=== PATIENT | male | born 1955 | race Caucasian/White ===

== ENCOUNTER 2017-03-14 19:11 | Inpatient (IN) | payer OTHER ==
[2017-03-14 20:23] LABS: BILIRUBIN,URINE SMALL (NEG); CLARITY,URINE CLEAR; COLOR,URINE AMBER; GLUCOSE,URINE NEGATIVE (NEG); NITRITE,URINE NEGATIVE (NEG); PROTEIN,URINE NEGATIVE (NEG-TRACE)
[2017-03-14 20:31] LABS: ADD MAN DIFF? NO
[2017-03-14 20:34] LABS: BASO % 1 % (0-3); EOS # 0.1 x10^3/uL (0.0-0.7); EOS % 1 % (0-3); HEMATOCRIT 38.3 % (39.0-53.0); HEMOGLOBIN 12.5 g/dL (13.0-17.5); LYMPH # 1.5 x10^3/uL (1.0-4.8); LYMPH % 24 % (24-48); MEAN CORPUSCULAR HEMOGLOBIN 29 pg (25-35); MEAN CORPUSCULAR HGB CONC 33 g/dL (31-37); MEAN CORPUSCULAR VOLUME 90 fL (79-100); MONO # 0.4 x10^3/uL (0.0-1.1); MONO % 6 % (0-9); NEUT # 4.2 x10^3uL (1.8-7.7); NEUT % 68 % (31-73); PLATELET COUNT 228 x10^3/uL (140-400); RED BLOOD COUNT 4.26 x10^6/uL (4.30-5.70); RED CELL DISTRIBUTION WIDTH 13.9 % (11.5-14.5); WHITE BLOOD COUNT 6.2 x10^3/uL (4.0-11.0)
[2017-03-14 20:41] LABS: ANION GAP 11 (6-14); BLOOD UREA NITROGEN 23 mg/dL (8-26); BUN/CREATININE RATIO 33 (6-20); CARBON DIOXIDE 28 mmol/L (21-32); CHLORIDE 105 mmol/L (98-107); CREATININE 0.7 mg/dL (0.7-1.3); GLUCOSE 94 mg/dL (70-99); POTASSIUM 3.9 mmol/L (3.5-5.1); SODIUM 144 mmol/L (136-145)
[2017-03-14 20:45] LABS: BACTERIA,URINE FEW /HPF (0-FEW); RBC,URINE 0 /HPF (0-2); WBC,URINE OCC /HPF (0-4)
[2017-03-14 20:48] LABS: ALBUMIN 3.4 g/dL (3.4-5.0); ALBUMIN/GLOBULIN RATIO 0.9 (1.0-1.7); ALK PHOS 86 U/L (46-116); AST (SGOT) 14 U/L (15-37); TOTAL BILIRUBIN 0.4 mg/dL (0.2-1.0); TOTAL PROTEIN 7.2 g/dL (6.4-8.2)
[2017-03-14 20:57] LABS: ALT (SGPT) 6 U/L (16-63)
[2017-03-14] MEDS: IV NORMAL SALINE 1000ML BAG 1,000 ML IV ×2 (21:40)
[2017-03-14] MEDS ORDERED: ONDANSETRON PF 4 MG/2 ML VIAL. IV ×2 (21:45)
[2017-03-15 05:39] LABS: ADD MAN DIFF? NO
[2017-03-15 06:11] LABS: BASO % 1 % (0-3); EOS # 0.1 x10^3/uL (0.0-0.7); EOS % 1 % (0-3); HEMATOCRIT 33.9 % (39.0-53.0); HEMOGLOBIN 11.2 g/dL (13.0-17.5); LYMPH # 1.8 x10^3/uL (1.0-4.8); LYMPH % 37 % (24-48); MEAN CORPUSCULAR HEMOGLOBIN 30 pg (25-35); MEAN CORPUSCULAR HGB CONC 33 g/dL (31-37); MEAN CORPUSCULAR VOLUME 90 fL (79-100); MONO # 0.3 x10^3/uL (0.0-1.1); MONO % 7 % (0-9); NEUT # 2.6 x10^3uL (1.8-7.7); NEUT % 55 % (31-73); PLATELET COUNT 202 x10^3/uL (140-400); RED BLOOD COUNT 3.77 x10^6/uL (4.30-5.70); RED CELL DISTRIBUTION WIDTH 13.9 % (11.5-14.5); WHITE BLOOD COUNT 4.8 x10^3/uL (4.0-11.0)
[2017-03-15 06:19] LABS: ANION GAP 11 (6-14); BLOOD UREA NITROGEN 22 mg/dL (8-26); CALCIUM 8.6 mg/dL (8.5-10.1); CARBON DIOXIDE 26 mmol/L (21-32); CHLORIDE 108 mmol/L (98-107); CREATININE 0.8 mg/dL (0.7-1.3); GFR 98.6; GLUCOSE 80 mg/dL (70-99); POTASSIUM 3.4 mmol/L (3.5-5.1); SODIUM 145 mmol/L (136-145)
[2017-03-15] MEDS: IV NORMAL SALINE 1000ML BAG 1,000 ML IV ×4 (10:13→16:45)
[2017-03-15] MEDS: MORPHINE SULFATE 4 MG/ML DISP.SYRIN. IV ×4 (10:14→15:25)
[2017-03-15] MEDS ORDERED: LIDOCAINE 2% PF Vial for OR 5 ML VIAL. ×2 (11:55)
[2017-03-15] MEDS ORDERED: PROPOFOL 20 ML IV ×2 (11:55)
[2017-03-15 13:48] LABS: INR 1.2 (0.8-1.1); PROTHROMBIN TIME PATIENT 14.3 SEC (11.7-14.0)
[2017-03-15] MEDS: FAMOTIDINE 20 MG/2 ML VIAL IVP ×2 (20:57)
[2017-03-15 22:10] LABS: MRSA BY PCR Negative (Negative)
[2017-03-16] MEDS: IV NORMAL SALINE 1000ML BAG 1,000 ML IV ×2 (04:27)
[2017-03-16] MEDS ORDERED: POTASSIUM CL 20MEQ D5-0.45NACL 1,000 ML IV ×2 (11:30)
[2017-03-16] MEDS: AMINO AC 3%/ELECTROLYTE/GLYCER 1,000 ML IV ×2 (12:26)
[2017-03-16] MEDS: MORPHINE SULFATE 4 MG/ML DISP.SYRIN. IV ×2 (17:49)
[2017-03-16] MEDS: FAMOTIDINE 20 MG/2 ML VIAL IVP ×2 (20:34)
[2017-03-17] MEDS: AMINO AC 3%/ELECTROLYTE/GLYCER 1,000 ML IV ×4 (00:21→13:26)
[2017-03-17 05:03] LABS: ALBUMIN 2.7 g/dL (3.4-5.0); ALBUMIN/GLOBULIN RATIO 0.7 (1.0-1.7); ALK PHOS 74 U/L (46-116); ALT (SGPT) 10 U/L (16-63); ANION GAP 12 (6-14); AST (SGOT) 16 U/L (15-37); BLOOD UREA NITROGEN 16 mg/dL (8-26); BUN/CREATININE RATIO 20 (6-20); CALCIUM 8.5 mg/dL (8.5-10.1); CARBON DIOXIDE 25 mmol/L (21-32); CHLORIDE 103 mmol/L (98-107); CREATININE 0.8 mg/dL (0.7-1.3); GFR 98.6; GLUCOSE 85 mg/dL (70-99); MAGNESIUM 1.7 mg/dL (1.8-2.4); POTASSIUM 3.8 mmol/L (3.5-5.1); SODIUM 140 mmol/L (136-145); TOTAL BILIRUBIN 0.5 mg/dL (0.2-1.0); TOTAL PROTEIN 6.8 g/dL (6.4-8.2)
[2017-03-17] MEDS: MORPHINE SULFATE 4 MG/ML DISP.SYRIN. IV ×2 (08:35)
[2017-03-17] MEDS: MAGNESIUM SULFATE 1GM 100 ML IV ×2 (17:32)
[2017-03-17] MEDS: FAMOTIDINE 20 MG/2 ML VIAL IVP ×2 (21:04)
[2017-03-18] MEDS: AMINO AC 3%/ELECTROLYTE/GLYCER 1,000 ML IV ×6 (00:35→23:57)
[2017-03-18 06:11] LABS: ANION GAP 12 (6-14); BLOOD UREA NITROGEN 15 mg/dL (8-26); CALCIUM 8.8 mg/dL (8.5-10.1); CARBON DIOXIDE 26 mmol/L (21-32); CHLORIDE 99 mmol/L (98-107); CREATININE 0.7 mg/dL (0.7-1.3); GLUCOSE 98 mg/dL (70-99); MAGNESIUM 1.9 mg/dL (1.8-2.4); POTASSIUM 3.9 mmol/L (3.5-5.1); SODIUM 137 mmol/L (136-145)
[2017-03-18] MEDS: MORPHINE SULFATE 4 MG/ML DISP.SYRIN. IV ×4 (09:28→17:35)
[2017-03-18] MEDS: FAMOTIDINE 20 MG/2 ML VIAL IVP ×2 (20:38)
[2017-03-19] MEDS: MORPHINE SULFATE 4 MG/ML DISP.SYRIN. IV ×10 (05:48→23:56)
[2017-03-19] MEDS: IV RINGERS,LACTATED 1000ML 1,000 ML IV ×2 (13:15)
[2017-03-19] MEDS ORDERED: PROPOFOL 20 ML IV ×2 (13:23)
[2017-03-19] MEDS: AMINO AC 3%/ELECTROLYTE/GLYCER 1,000 ML IV ×2 (15:00)
[2017-03-19] MEDS: FAMOTIDINE 20 MG/2 ML VIAL IVP ×2 (23:59)
[2017-03-20] MEDS: AMINO AC 3%/ELECTROLYTE/GLYCER 1,000 ML IV ×6 (02:22→20:44)
[2017-03-20] MEDS: MORPHINE SULFATE 4 MG/ML DISP.SYRIN. IV ×10 (02:24→16:24)
[2017-03-20] MEDS ORDERED: LIDOCAINE 1% PF 2 ML VIAL. ID ×2 (07:00)
[2017-03-20] MEDS ORDERED: IV RINGERS,LACTATED 1000ML 1,000 ML IV ×2 (07:00)
[2017-03-20] MEDS ORDERED: fentaNYL PF VIAL 100 MCG/2 ML VIAL IV ×2 (07:00)
[2017-03-20] MEDS ORDERED: PROCHLORPERAZINE 10 MG/2 ML VIAL. IV ×2 (07:00)
[2017-03-20] MEDS ORDERED: ONDANSETRON PF 4 MG/2 ML VIAL. IV ×2 (07:00)
[2017-03-20] MEDS ORDERED: HYDROmorphone 2 MG/ML VIAL IV ×2 (07:00)
[2017-03-20] MEDS ORDERED: MORPHINE SULFATE 2 MG/ML DISP.SYRIN. IV ×2 (07:00)
[2017-03-20] MEDS ORDERED: SEVOFLURANE 16 TO 30 MINUTES. IH ×2 (11:45)
[2017-03-20] MEDS ORDERED: PROPOFOL 20 ML IV ×2 (11:45)
[2017-03-20] MEDS ORDERED: LIDOCAINE 2% PF Vial for OR 5 ML VIAL. ×2 (11:45)
[2017-03-20] MEDS ORDERED: BUPIVAC MPF-EPI 0.5%-1:200000 10 ML VIAL. ×2 (12:15)
[2017-03-20] MEDS ORDERED: BUPIVACAINE MPF 0.5% 30 ML VIAL. ×2 (12:16)
[2017-03-20] MEDS ORDERED: PHENYLEPHRINE in 0.9% NACL PF 1 MG/10 ML SYRINGE. IV (12:26)
[2017-03-20] MEDS ORDERED: DEXAMETHASONE SOD PHOS 20 MG/5 ML VIAL. ×2 (12:30)
[2017-03-20] MEDS ORDERED: ONDANSETRON PF 4 MG/2 ML VIAL. ×2 (12:30)
[2017-03-20] MEDS: BUPIVAC MPF-EPI 0.5%-1:200000 30 ML VIAL. INJ ×2 (12:34)
[2017-03-20] MEDS ORDERED: fentaNYL PF VIAL 100 MCG/2 ML VIAL ×2 (12:47)
[2017-03-20] MEDS: fentaNYL PF VIAL 100 MCG/2 ML VIAL IV ×8 (14:09→14:52)
[2017-03-20] MEDS: IV RINGERS,LACTATED 1000ML 1,000 ML IV ×2 (19:15)
[2017-03-20] MEDS: FAMOTIDINE 20 MG/2 ML VIAL IVP ×2 (20:52)
[2017-03-21] MEDS: IV RINGERS,LACTATED 1000ML 1,000 ML IV ×2 (05:15)
[2017-03-21] MEDS: MORPHINE SULFATE 4 MG/ML DISP.SYRIN. IV ×6 (09:09→23:15)
[2017-03-21] MEDS: AMINO AC 3%/ELECTROLYTE/GLYCER 1,000 ML IV ×4 (09:22→20:52)
[2017-03-21] MEDS: FAMOTIDINE 20 MG/2 ML VIAL IVP ×2 (20:44)
[2017-03-21] MEDS: ONDANSETRON PF 4 MG/2 ML VIAL. IV ×2 (20:45)
[2017-03-22] MEDS: MORPHINE SULFATE 4 MG/ML DISP.SYRIN. IV ×6 (03:03→20:46)
[2017-03-22] MEDS: ONDANSETRON PF 4 MG/2 ML VIAL. IV ×6 (06:23→20:46)
[2017-03-22] MEDS ORDERED: traMADol 50 MG TABLET PO ×2 (07:15)
[2017-03-22] MEDS ORDERED: ACETAMINOPHEN 325 MG TABLET. PO ×2 (07:15)
[2017-03-22] MEDS: AMINO AC 3%/ELECTROLYTE/GLYCER 1,000 ML IV ×2 (14:55)
[2017-03-22] MEDS: FAMOTIDINE 20 MG/2 ML VIAL IVP ×2 (20:47)
[2017-03-23] MEDS: MORPHINE SULFATE 4 MG/ML DISP.SYRIN. IV ×6 (05:37→21:31)
[2017-03-23] MEDS: AMINO AC 3%/ELECTROLYTE/GLYCER 1,000 ML IV ×4 (05:37→16:25)
[2017-03-23] MEDS: ONDANSETRON PF 4 MG/2 ML VIAL. IV ×4 (13:40→21:31)
[2017-03-23] MEDS: FAMOTIDINE 20 MG/2 ML VIAL IVP ×2 (21:30)
[2017-03-24] MEDS: MORPHINE SULFATE 4 MG/ML DISP.SYRIN. IV ×8 (00:06→20:11)
[2017-03-24] MEDS: ONDANSETRON PF 4 MG/2 ML VIAL. IV ×4 (06:29→17:44)
[2017-03-24] MEDS: AMINO AC 3%/ELECTROLYTE/GLYCER 1,000 ML IV ×4 (08:34→20:05)
[2017-03-24] MEDS: BISACODYL 10 MG SUPP.RECT. PR ×2 (17:39)
[2017-03-24] MEDS: FAMOTIDINE 20 MG/2 ML VIAL IVP ×2 (20:10)
[2017-03-25] MEDS: MORPHINE SULFATE 4 MG/ML DISP.SYRIN. IV ×8 (04:01→21:56)
[2017-03-25] MEDS: AMINO AC 3%/ELECTROLYTE/GLYCER 1,000 ML IV ×4 (08:50→22:01)
[2017-03-25 11:59] LABS: BASO % 0 % (0-3); EOS % 0 % (0-3); HEMATOCRIT 35.5 % (39.0-53.0); HEMOGLOBIN 11.5 g/dL (13.0-17.5); LYMPH # 0.8 x10^3/uL (1.0-4.8); LYMPH % 9 % (24-48); MEAN CORPUSCULAR HEMOGLOBIN 29 pg (25-35); MEAN CORPUSCULAR HGB CONC 32 g/dL (31-37); MEAN CORPUSCULAR VOLUME 89 fL (79-100); MONO # 0.8 x10^3/uL (0.0-1.1); MONO % 10 % (0-9); NEUT # 6.8 x10^3uL (1.8-7.7); NEUT % 80 % (31-73); PLATELET COUNT 340 x10^3/uL (140-400); RED BLOOD COUNT 3.98 x10^6/uL (4.30-5.70); RED CELL DISTRIBUTION WIDTH 13.9 % (11.5-14.5); WHITE BLOOD COUNT 8.5 x10^3/uL (4.0-11.0)
[2017-03-25 12:00] LABS: ADD MAN DIFF? YES
[2017-03-25 12:21] LABS: % ATYL 1 % (0-0); % EOS 1 % (0-5); % LYMPHS 17 % (24-48); % MONOS 12 % (0-10); % SEGS 69 % (35-66); PLT ESTIMATE ADEQUATE (ADEQUATE)
[2017-03-25 12:30] LABS: ALBUMIN 1.8 g/dL (3.4-5.0); ALBUMIN/GLOBULIN RATIO 0.4 (1.0-1.7); ALK PHOS 118 U/L (46-116); ALT (SGPT) 15 U/L (16-63); ANION GAP 10 (6-14); AST (SGOT) 36 U/L (15-37); BLOOD UREA NITROGEN 34 mg/dL (8-26); BUN/CREATININE RATIO 57 (6-20); CALCIUM 8.6 mg/dL (8.5-10.1); CARBON DIOXIDE 26 mmol/L (21-32); CHLORIDE 97 mmol/L (98-107); CREATININE 0.6 mg/dL (0.7-1.3); GFR 137.4; GLUCOSE 102 mg/dL (70-99); POTASSIUM 4.4 mmol/L (3.5-5.1); SODIUM 133 mmol/L (136-145); TOTAL BILIRUBIN 0.4 mg/dL (0.2-1.0); TOTAL PROTEIN 6.9 g/dL (6.4-8.2)
[2017-03-25] MEDS: PIPERACILLIN/TAZO IV Push 3.375 GM VIAL. IVP ×4 (13:51→18:15)
[2017-03-25] MEDS: ONDANSETRON PF 4 MG/2 ML VIAL. IV ×2 (16:15)
[2017-03-25] MEDS ORDERED: PIPERACILLIN/TAZOBACTAM 3.375 GM in IV DEXTROSE 5% 50 ML IV (18:00)
[2017-03-25] MEDS: FAMOTIDINE 20 MG/2 ML VIAL IVP ×2 (21:55)
[2017-03-26] MEDS: PIPERACILLIN/TAZO IV Push 3.375 GM VIAL. IVP ×8 (00:30→17:54)
[2017-03-26] MEDS: MORPHINE SULFATE 4 MG/ML DISP.SYRIN. IV ×10 (00:31→22:14)
[2017-03-26] MEDS: AMINO AC 3%/ELECTROLYTE/GLYCER 1,000 ML IV ×4 (11:28→22:15)
[2017-03-26] MEDS: BISACODYL 10 MG SUPP.RECT. PR ×2 (12:07)
[2017-03-26] MEDS: ONDANSETRON PF 4 MG/2 ML VIAL. IV ×2 (22:14)
[2017-03-26] MEDS: FAMOTIDINE 20 MG/2 ML VIAL IVP ×2 (22:15)
[2017-03-27] MEDS: PIPERACILLIN/TAZO IV Push 3.375 GM VIAL. IVP ×4 (01:09→06:21)
[2017-03-27] MEDS: MORPHINE SULFATE 4 MG/ML DISP.SYRIN. IV ×8 (03:48→20:28)
[2017-03-27 07:14] LABS: ADD MAN DIFF? NO
[2017-03-27 07:42] LABS: ANION GAP 11 (6-14); BLOOD UREA NITROGEN 29 mg/dL (8-26); CALCIUM 8.1 mg/dL (8.5-10.1); CARBON DIOXIDE 25 mmol/L (21-32); CHLORIDE 97 mmol/L (98-107); CREATININE 0.7 mg/dL (0.7-1.3); GLUCOSE 118 mg/dL (70-99); POTASSIUM 4.2 mmol/L (3.5-5.1); SODIUM 133 mmol/L (136-145)
[2017-03-27 08:36] LABS: BASO % 0 % (0-3); EOS # 0.1 x10^3/uL (0.0-0.7); EOS % 1 % (0-3); HEMATOCRIT 35.8 % (39.0-53.0); HEMOGLOBIN 11.7 g/dL (13.0-17.5); LYMPH # 1.3 x10^3/uL (1.0-4.8); LYMPH % 10 % (24-48); MEAN CORPUSCULAR HEMOGLOBIN 29 pg (25-35); MEAN CORPUSCULAR HGB CONC 33 g/dL (31-37); MEAN CORPUSCULAR VOLUME 88 fL (79-100); MONO # 1.4 x10^3/uL (0.0-1.1); MONO % 11 % (0-9); NEUT # 9.6 x10^3uL (1.8-7.7); NEUT % 77 % (31-73); PLATELET COUNT 415 x10^3/uL (140-400); RED BLOOD COUNT 4.06 x10^6/uL (4.30-5.70); RED CELL DISTRIBUTION WIDTH 14.3 % (11.5-14.5); WHITE BLOOD COUNT 12.3 x10^3/uL (4.0-11.0)
[2017-03-27] MEDS: cefTRIAXone IV Push 1 GM VIAL. IVP ×2 (10:27)
[2017-03-27] MEDS: AMINO AC 3%/ELECTROLYTE/GLYCER 1,000 ML IV ×4 (12:24→20:26)
[2017-03-27] MEDS: FAMOTIDINE 20 MG/2 ML VIAL IVP ×2 (20:27)
[2017-03-28] MEDS: MORPHINE SULFATE 4 MG/ML DISP.SYRIN. IV ×8 (00:43→20:22)
[2017-03-28] MEDS: cefTRIAXone IV Push 1 GM VIAL. IVP ×2 (09:25)
[2017-03-28] MEDS: AMINO AC 3%/ELECTROLYTE/GLYCER 1,000 ML IV ×4 (14:01→20:19)
[2017-03-28] MEDS: FAMOTIDINE 20 MG/2 ML VIAL IVP ×2 (20:21)
[2017-03-29] MEDS: MORPHINE SULFATE 4 MG/ML DISP.SYRIN. IV ×8 (05:35→23:19)
[2017-03-29 06:45] LABS: ALBUMIN 1.5 g/dL (3.4-5.0); ALBUMIN/GLOBULIN RATIO 0.3 (1.0-1.7); ALK PHOS 215 U/L (46-116); ALT (SGPT) 6 U/L (16-63); ANION GAP 11 (6-14); AST (SGOT) 24 U/L (15-37); BLOOD UREA NITROGEN 23 mg/dL (8-26); BUN/CREATININE RATIO 33 (6-20); CALCIUM 7.7 mg/dL (8.5-10.1); CARBON DIOXIDE 23 mmol/L (21-32); CHLORIDE 96 mmol/L (98-107); CREATININE 0.7 mg/dL (0.7-1.3); GLUCOSE 108 mg/dL (70-99); MAGNESIUM 2.1 mg/dL (1.8-2.4); PHOSPHORUS 3.3 mg/dL (2.6-4.7); POTASSIUM 4.2 mmol/L (3.5-5.1); SODIUM 130 mmol/L (136-145); TOTAL BILIRUBIN 0.4 mg/dL (0.2-1.0); TOTAL PROTEIN 6.2 g/dL (6.4-8.2)
[2017-03-29] MEDS: cefTRIAXone IV Push 1 GM VIAL. IVP ×2 (09:05)
[2017-03-29] MEDS: POLYETHYLENE GLYCOL 3350 17 GM PACKET. PO ×2 (10:51)
[2017-03-29] MEDS: AMINO AC 3%/ELECTROLYTE/GLYCER 1,000 ML IV ×2 (12:30)
[2017-03-29] MEDS: TPN PER PHARMACY MC ×2 (13:35)
[2017-03-29] MEDS: FAMOTIDINE 20 MG/2 ML VIAL IVP ×2 (22:44)
[2017-03-29] MEDS: TOTAL PARENTERAL NUTRITION 1,424.9987 ML, AMINO ACIDS 10 % 60 GM, DEXTROSE 70 % IN WATE... IV ×2 (22:47)
[2017-03-30] MEDS: MORPHINE SULFATE 4 MG/ML DISP.SYRIN. IV ×8 (04:33→22:50)
[2017-03-30] MEDS: cefTRIAXone IV Push 1 GM VIAL. IVP ×2 (09:41)
[2017-03-30] MEDS: POLYETHYLENE GLYCOL 3350 17 GM PACKET. PO ×2 (09:42)
[2017-03-30] MEDS: TPN PER PHARMACY MC ×4 (10:26→13:40)
[2017-03-30 13:36] LABS: ANION GAP 10 (6-14); BLOOD UREA NITROGEN 20 mg/dL (8-26); CALCIUM 8.1 mg/dL (8.5-10.1); CARBON DIOXIDE 26 mmol/L (21-32); CHLORIDE 97 mmol/L (98-107); CREATININE 0.5 mg/dL (0.7-1.3); GFR 169.6; GLUCOSE 101 mg/dL (70-99); MAGNESIUM 2.1 mg/dL (1.8-2.4); PHOSPHORUS 4.7 mg/dL (2.6-4.7); POTASSIUM 4.2 mmol/L (3.5-5.1); SODIUM 133 mmol/L (136-145)
[2017-03-30] MEDS: FAMOTIDINE 20 MG/2 ML VIAL IVP ×2 (20:46)
[2017-03-30] MEDS: DEXTROSE 70% IV ×2 (22:49)
[2017-03-30] MEDS: [UNRECOGNIZED DRUG - OTHER] IV ×2 (22:49)
[2017-03-30] MEDS: AMINO ACIDS IV ×2 (22:49)
[2017-03-30] MEDS: TOTAL PARENTERAL NUTRITION IV ×2 (22:49)
[2017-03-31] MEDS: MORPHINE SULFATE 4 MG/ML DISP.SYRIN. IV ×8 (01:34→20:28)
[2017-03-31] MEDS: ONDANSETRON PF 4 MG/2 ML VIAL. IV ×2 (05:17)
[2017-03-31 07:45] LABS: ANION GAP 10 (6-14); BLOOD UREA NITROGEN 21 mg/dL (8-26); CALCIUM 7.9 mg/dL (8.5-10.1); CARBON DIOXIDE 26 mmol/L (21-32); CHLORIDE 100 mmol/L (98-107); CREATININE 0.6 mg/dL (0.7-1.3); GFR 137.4; GLUCOSE 107 mg/dL (70-99); MAGNESIUM 2.1 mg/dL (1.8-2.4); POTASSIUM 4.7 mmol/L (3.5-5.1); SODIUM 136 mmol/L (136-145); TRIGLYCERIDES 97 mg/dL (0-150)
[2017-03-31] MEDS: cefTRIAXone IV Push 1 GM VIAL. IVP ×2 (09:46)
[2017-03-31] MEDS: POLYETHYLENE GLYCOL 3350 17 GM PACKET. PO ×2 (09:47)
[2017-03-31] MEDS: TPN PER PHARMACY MC ×2 (11:31)
[2017-03-31] MEDS: SERTRALINE 50 MG TABLET. PO ×2 (17:40)
[2017-03-31] MEDS: FAMOTIDINE 20 MG/2 ML VIAL IVP ×2 (20:29)
[2017-04-01] MEDS: DEXTROSE 70% IV ×4 (00:05→22:34)
[2017-04-01] MEDS: TOTAL PARENTERAL NUTRITION IV ×4 (00:05→22:34)
[2017-04-01] MEDS: AMINO ACIDS IV ×4 (00:05→22:34)
[2017-04-01] MEDS: [UNRECOGNIZED DRUG - OTHER] IV ×2 (00:05)
[2017-04-01] MEDS: MORPHINE SULFATE 4 MG/ML DISP.SYRIN. IV ×6 (01:25→20:51)
[2017-04-01 06:46] LABS: HEMATOCRIT 32.4 % (39.0-53.0); HEMOGLOBIN 10.4 g/dL (13.0-17.5); MEAN CORPUSCULAR HEMOGLOBIN 28 pg (25-35); MEAN CORPUSCULAR HGB CONC 32 g/dL (31-37); MEAN CORPUSCULAR VOLUME 88 fL (79-100); PLATELET COUNT 393 x10^3/uL (140-400); RED BLOOD COUNT 3.67 x10^6/uL (4.30-5.70); RED CELL DISTRIBUTION WIDTH 14.5 % (11.5-14.5); WHITE BLOOD COUNT 18.6 x10^3/uL (4.0-11.0)
[2017-04-01 06:53] LABS: ALBUMIN 1.6 g/dL (3.4-5.0); ALBUMIN/GLOBULIN RATIO 0.3 (1.0-1.7); ALK PHOS 356 U/L (46-116); ALT (SGPT) 18 U/L (16-63); ANION GAP 10 (6-14); AST (SGOT) 43 U/L (15-37); BLOOD UREA NITROGEN 18 mg/dL (8-26); BUN/CREATININE RATIO 36 (6-20); CALCIUM 7.9 mg/dL (8.5-10.1); CARBON DIOXIDE 24 mmol/L (21-32); CHLORIDE 103 mmol/L (98-107); CREATININE 0.5 mg/dL (0.7-1.3); GFR 169.6; GLUCOSE 92 mg/dL (70-99); PHOSPHORUS 4.4 mg/dL (2.6-4.7); POTASSIUM 4.6 mmol/L (3.5-5.1); SODIUM 137 mmol/L (136-145); TOTAL BILIRUBIN 0.4 mg/dL (0.2-1.0); TOTAL PROTEIN 6.3 g/dL (6.4-8.2)
[2017-04-01 07:03] LABS: THYROID STIM HORMONE (TSH) 2.034 uIU/mL (0.358-3.74)
[2017-04-01 08:31] LABS: SEDIMENTATION RATE 93 (0-15)
[2017-04-01] MEDS: POLYETHYLENE GLYCOL 3350 17 GM PACKET. PO ×2 (09:22)
[2017-04-01] MEDS: SERTRALINE 50 MG TABLET. PO ×2 (09:22)
[2017-04-01] MEDS: cefTRIAXone IV Push 1 GM VIAL. IVP ×2 (09:23)
[2017-04-01] MEDS: TPN PER PHARMACY MC ×2 (14:06)
[2017-04-01] MEDS: FAMOTIDINE 20 MG/2 ML VIAL IVP ×2 (20:49)
[2017-04-01] MEDS: [UNRECOGNIZED DRUG - OTHER] IV ×2 (22:34)
[2017-04-02] MEDS: MORPHINE SULFATE 4 MG/ML DISP.SYRIN. IV ×10 (01:08→20:27)
[2017-04-02 05:37] LABS: BASO # 0.1 x10^3/uL (0.0-0.2); BASO % 1 % (0-3); EOS # 0.1 x10^3/uL (0.0-0.7); EOS % 1 % (0-3); HEMATOCRIT 31.1 % (39.0-53.0); HEMOGLOBIN 10.3 g/dL (13.0-17.5); LYMPH # 1.8 x10^3/uL (1.0-4.8); LYMPH % 11 % (24-48); MEAN CORPUSCULAR HEMOGLOBIN 29 pg (25-35); MEAN CORPUSCULAR HGB CONC 33 g/dL (31-37); MEAN CORPUSCULAR VOLUME 89 fL (79-100); MONO # 1.1 x10^3/uL (0.0-1.1); MONO % 7 % (0-9); NEUT # 13.5 x10^3uL (1.8-7.7); NEUT % 81 % (31-73); PLATELET COUNT 381 x10^3/uL (140-400); RED CELL DISTRIBUTION WIDTH 14.1 % (11.5-14.5); WHITE BLOOD COUNT 16.6 x10^3/uL (4.0-11.0)
[2017-04-02 05:50] LABS: ANION GAP 12 (6-14); BLOOD UREA NITROGEN 19 mg/dL (8-26); CARBON DIOXIDE 23 mmol/L (21-32); CHLORIDE 102 mmol/L (98-107); CREATININE 0.6 mg/dL (0.7-1.3); GFR 137.4; GLUCOSE 102 mg/dL (70-99); PHOSPHORUS 4.7 mg/dL (2.6-4.7); POTASSIUM 4.4 mmol/L (3.5-5.1); SODIUM 137 mmol/L (136-145)
[2017-04-02 05:52] LABS: ADD MAN DIFF? YES
[2017-04-02] MEDS: SERTRALINE 50 MG TABLET. PO ×2 (09:00)
[2017-04-02] MEDS: POLYETHYLENE GLYCOL 3350 17 GM PACKET. PO ×2 (09:00)
[2017-04-02] MEDS: cefTRIAXone IV Push 1 GM VIAL. IVP ×2 (09:57)
[2017-04-02] MEDS ORDERED: CONTRAST GIVEN MC ×2 (10:30)
[2017-04-02] MEDS: IOHEXOL 300 MG/ML 100ML VIAL. IV ×2 (10:59)
[2017-04-02 11:05] LABS: % LYMPHS 10 % (24-48); % MONOS 6 % (0-10); % SEGS 84 % (35-66)
[2017-04-02 11:06] LABS: PLT ESTIMATE ADEQUATE (ADEQUATE)
[2017-04-02] MEDS: TPN PER PHARMACY MC ×2 (13:43)
[2017-04-02 15:08] LABS: INR 1.4 (0.8-1.1); PARTIAL THROMBOPLASTIN TIME 43 SEC (24-38); PROTHROMBIN TIME PATIENT 15.9 SEC (11.7-14.0)
[2017-04-02] MEDS: FAMOTIDINE 20 MG/2 ML VIAL IVP ×2 (20:27)
[2017-04-02] MEDS: TOTAL PARENTERAL NUTRITION IV ×2 (22:55)
[2017-04-02] MEDS: DEXTROSE 70% IV ×2 (22:55)
[2017-04-02] MEDS: [UNRECOGNIZED DRUG - OTHER] IV ×2 (22:55)
[2017-04-02] MEDS: AMINO ACIDS IV ×2 (22:55)
[2017-04-03] MEDS: MORPHINE SULFATE 4 MG/ML DISP.SYRIN. IV ×6 (01:24→21:38)
[2017-04-03] MEDS: SERTRALINE 50 MG TABLET. PO ×2 (09:00)
[2017-04-03] MEDS: POLYETHYLENE GLYCOL 3350 17 GM PACKET. PO ×2 (09:00)
[2017-04-03] MEDS: cefTRIAXone IV Push 1 GM VIAL. IVP ×2 (09:13)
[2017-04-03] MEDS ORDERED: LIDOCAINE WITH 8.4% SOD BICARB 3 ML DISP.SYRIN. IJ ×2 (09:13)
[2017-04-03] MEDS ORDERED: MIDAZOLAM HCL/PF 5 MG/5 ML VIAL. ×2 (09:30)
[2017-04-03] MEDS ORDERED: fentaNYL PF VIAL 250 MCG/5 ML VIAL ×2 (09:30)
[2017-04-03] MEDS: MIDAZOLAM HCL/PF 5 MG/5 ML VIAL. IV ×2 (10:15)
[2017-04-03] MEDS: fentaNYL PF VIAL 250 MCG/5 ML VIAL IV ×2 (10:15)
[2017-04-03] MEDS: LIDOCAINE WITH 8.4% SOD BICARB 3 ML DISP.SYRIN. IJ ×2 (10:15)
[2017-04-03] MEDS: TPN PER PHARMACY MC ×4 (13:05→13:32)
[2017-04-03] MEDS: FAMOTIDINE 20 MG/2 ML VIAL IVP ×2 (21:38)
[2017-04-03] MEDS: [UNRECOGNIZED DRUG - OTHER] IV ×2 (21:39)
[2017-04-03] MEDS: TOTAL PARENTERAL NUTRITION IV ×2 (21:39)
[2017-04-03] MEDS: DEXTROSE 70% IV ×2 (21:39)
[2017-04-03] MEDS: AMINO ACIDS IV ×2 (21:39)
[2017-04-04] MEDS: MORPHINE SULFATE 4 MG/ML DISP.SYRIN. IV ×8 (05:27→20:37)
[2017-04-04 05:42] LABS: ADD MAN DIFF? NO
[2017-04-04 05:55] LABS: BASO # 0.1 x10^3/uL (0.0-0.2); BASO % 1 % (0-3); EOS # 0.1 x10^3/uL (0.0-0.7); EOS % 1 % (0-3); HEMATOCRIT 29.4 % (39.0-53.0); HEMOGLOBIN 9.7 g/dL (13.0-17.5); LYMPH # 1.8 x10^3/uL (1.0-4.8); LYMPH % 15 % (24-48); MEAN CORPUSCULAR HEMOGLOBIN 29 pg (25-35); MEAN CORPUSCULAR HGB CONC 33 g/dL (31-37); MEAN CORPUSCULAR VOLUME 89 fL (79-100); MONO # 0.8 x10^3/uL (0.0-1.1); MONO % 7 % (0-9); NEUT % 76 % (31-73); PLATELET COUNT 406 x10^3/uL (140-400); WHITE BLOOD COUNT 11.8 x10^3/uL (4.0-11.0)
[2017-04-04 06:21] LABS: ALBUMIN 1.7 g/dL (3.4-5.0); ALBUMIN/GLOBULIN RATIO 0.3 (1.0-1.7); ALK PHOS 325 U/L (46-116); ALT (SGPT) 29 U/L (16-63); AST (SGOT) 42 U/L (15-37); BLOOD UREA NITROGEN 24 mg/dL (8-26); BUN/CREATININE RATIO 40 (6-20); CALCIUM 8.3 mg/dL (8.5-10.1); CARBON DIOXIDE 24 mmol/L (21-32); CHLORIDE 102 mmol/L (98-107); CREATININE 0.6 mg/dL (0.7-1.3); GFR 137.4; GLUCOSE 110 mg/dL (70-99); PHOSPHORUS 4.7 mg/dL (2.6-4.7); TOTAL BILIRUBIN 0.5 mg/dL (0.2-1.0); TOTAL PROTEIN 6.8 g/dL (6.4-8.2)
[2017-04-04 06:34] LABS: ANION GAP 10 (6-14); POTASSIUM 4.3 mmol/L (3.5-5.1); SODIUM 136 mmol/L (136-145)
[2017-04-04] MEDS: SERTRALINE 50 MG TABLET. PO ×2 (09:00)
[2017-04-04] MEDS: POLYETHYLENE GLYCOL 3350 17 GM PACKET. PO ×2 (09:00)
[2017-04-04] MEDS: cefTRIAXone IV Push 1 GM VIAL. IVP ×2 (09:02)
[2017-04-04] MEDS: VANCOMYCIN 2 GM in IV DEXTROSE 5 %-0.2 % NACL 500 ML IV (12:14)
[2017-04-04] MEDS: TPN PER PHARMACY MC ×2 (12:55)
[2017-04-04] MEDS: VANCOMYCIN PER PHARMACY MC ×2 (13:08)
[2017-04-04] MEDS: FAMOTIDINE 20 MG/2 ML VIAL IVP ×2 (20:37)
[2017-04-04] MEDS: VANCOMYCIN 1.25 GM in IV DEXTROSE 5% 250 ML IV (20:37)
[2017-04-04] MEDS: AMINO ACIDS IV ×2 (22:09)
[2017-04-04] MEDS: [UNRECOGNIZED DRUG - OTHER] IV ×2 (22:09)
[2017-04-04] MEDS: DEXTROSE 70% IV ×2 (22:09)
[2017-04-04] MEDS: TOTAL PARENTERAL NUTRITION IV ×2 (22:09)
[2017-04-05] MEDS: MORPHINE SULFATE 4 MG/ML DISP.SYRIN. IV ×10 (02:35→21:39)
[2017-04-05] MEDS: VANCOMYCIN 1.25 GM in IV DEXTROSE 5% 250 ML IV ×3 (04:14→21:29)
[2017-04-05 05:00] LABS: ADD MAN DIFF? NO
[2017-04-05 05:05] LABS: BASO # 0.1 x10^3/uL (0.0-0.2); BASO % 1 % (0-3); EOS # 0.1 x10^3/uL (0.0-0.7); EOS % 1 % (0-3); HEMATOCRIT 28.8 % (39.0-53.0); HEMOGLOBIN 9.5 g/dL (13.0-17.5); LYMPH # 1.5 x10^3/uL (1.0-4.8); LYMPH % 18 % (24-48); MEAN CORPUSCULAR HEMOGLOBIN 30 pg (25-35); MEAN CORPUSCULAR HGB CONC 33 g/dL (31-37); MEAN CORPUSCULAR VOLUME 90 fL (79-100); MONO # 0.7 x10^3/uL (0.0-1.1); MONO % 8 % (0-9); NEUT # 6.2 x10^3uL (1.8-7.7); NEUT % 72 % (31-73); PLATELET COUNT 395 x10^3/uL (140-400); RED BLOOD COUNT 3.21 x10^6/uL (4.30-5.70); RED CELL DISTRIBUTION WIDTH 14.1 % (11.5-14.5); WHITE BLOOD COUNT 8.6 x10^3/uL (4.0-11.0)
[2017-04-05 05:19] LABS: ANION GAP 12 (6-14); BLOOD UREA NITROGEN 24 mg/dL (8-26); CALCIUM 8.1 mg/dL (8.5-10.1); CARBON DIOXIDE 22 mmol/L (21-32); CHLORIDE 104 mmol/L (98-107); CREATININE 0.6 mg/dL (0.7-1.3); GFR 137.4; GLUCOSE 107 mg/dL (70-99); POTASSIUM 4.2 mmol/L (3.5-5.1); SODIUM 138 mmol/L (136-145)
[2017-04-05] MEDS: POLYETHYLENE GLYCOL 3350 17 GM PACKET. PO ×2 (07:34)
[2017-04-05] MEDS: SERTRALINE 50 MG TABLET. PO ×2 (07:34)
[2017-04-05] MEDS: cefTRIAXone IV Push 1 GM VIAL. IVP ×2 (08:56)
[2017-04-05 12:01] LABS: VANC TR 18.7 mcg/mL (10.0-20.0)
[2017-04-05] MEDS: VANCOMYCIN PER PHARMACY MC ×2 (12:26)
[2017-04-05] MEDS: FAMOTIDINE 20 MG/2 ML VIAL IVP ×2 (21:30)
[2017-04-05] MEDS: TOTAL PARENTERAL NUTRITION IV ×2 (22:00)
[2017-04-05] MEDS: AMINO ACIDS IV ×2 (22:00)
[2017-04-05] MEDS: [UNRECOGNIZED DRUG - OTHER] IV ×2 (22:00)
[2017-04-05] MEDS: DEXTROSE 70% IV ×2 (22:00)
[2017-04-06] MEDS: MORPHINE SULFATE 4 MG/ML DISP.SYRIN. IV ×14 (00:10→20:02)
[2017-04-06] MEDS: VANCOMYCIN 1.25 GM in IV DEXTROSE 5% 250 ML IV ×3 (03:27→20:00)
[2017-04-06] MEDS: POLYETHYLENE GLYCOL 3350 17 GM PACKET. PO ×2 (07:40)
[2017-04-06] MEDS: SERTRALINE 50 MG TABLET. PO ×2 (07:40)
[2017-04-06] MEDS: cefTRIAXone IV Push 1 GM VIAL. IVP ×2 (08:48)
[2017-04-06] MEDS: FAMOTIDINE 20 MG/2 ML VIAL IVP ×2 (20:01)
[2017-04-06] MEDS: AMINO ACIDS IV ×2 (21:02)
[2017-04-06] MEDS: TOTAL PARENTERAL NUTRITION IV ×2 (21:02)
[2017-04-06] MEDS: [UNRECOGNIZED DRUG - OTHER] IV ×2 (21:02)
[2017-04-06] MEDS: DEXTROSE 70% IV ×2 (21:02)
[2017-04-07] MEDS: MORPHINE SULFATE 4 MG/ML DISP.SYRIN. IV ×18 (00:42→22:25)
[2017-04-07] MEDS: VANCOMYCIN 1.25 GM in IV DEXTROSE 5% 250 ML IV ×3 (05:08→20:07)
[2017-04-07] MEDS: POLYETHYLENE GLYCOL 3350 17 GM PACKET. PO ×2 (09:00)
[2017-04-07] MEDS: SERTRALINE 50 MG TABLET. PO ×2 (09:00)
[2017-04-07] MEDS: cefTRIAXone IV Push 1 GM VIAL. IVP ×2 (09:04)
[2017-04-07 13:32] LABS: CREATININE 0.6 mg/dL (0.7-1.3)
[2017-04-07 13:32] LABS: GFR 137.4
[2017-04-07] MEDS: FAMOTIDINE 20 MG/2 ML VIAL IVP ×2 (20:09)
[2017-04-07] MEDS: AMINO ACIDS IV ×2 (21:40)
[2017-04-07] MEDS: [UNRECOGNIZED DRUG - OTHER] IV ×2 (21:40)
[2017-04-07] MEDS: TOTAL PARENTERAL NUTRITION IV ×2 (21:40)
[2017-04-07] MEDS: DEXTROSE 70% IV ×2 (21:40)
[2017-04-08] MEDS: MORPHINE SULFATE 4 MG/ML DISP.SYRIN. IV ×14 (00:41→22:12)
[2017-04-08] MEDS: VANCOMYCIN 1.25 GM in IV DEXTROSE 5% 250 ML IV ×2 (03:20→12:40)
[2017-04-08 06:37] LABS: ALBUMIN 1.8 g/dL (3.4-5.0); ALBUMIN/GLOBULIN RATIO 0.3 (1.0-1.7); ALK PHOS 192 U/L (46-116); ALT (SGPT) 21 U/L (16-63); ANION GAP 12 (6-14); AST (SGOT) 22 U/L (15-37); BLOOD UREA NITROGEN 22 mg/dL (8-26); BUN/CREATININE RATIO 37 (6-20); CALCIUM 8.5 mg/dL (8.5-10.1); CARBON DIOXIDE 21 mmol/L (21-32); CHLORIDE 103 mmol/L (98-107); CREATININE 0.6 mg/dL (0.7-1.3); GFR 137.4; GLUCOSE 93 mg/dL (70-99); MAGNESIUM 1.7 mg/dL (1.8-2.4); PHOSPHORUS 4.7 mg/dL (2.6-4.7); POTASSIUM 4.4 mmol/L (3.5-5.1); SODIUM 136 mmol/L (136-145); TOTAL BILIRUBIN 0.4 mg/dL (0.2-1.0); TRIGLYCERIDES 54 mg/dL (0-150)
[2017-04-08] MEDS: cefTRIAXone IV Push 1 GM VIAL. IVP ×2 (08:59)
[2017-04-08] MEDS: POLYETHYLENE GLYCOL 3350 17 GM PACKET. PO ×2 (09:00)
[2017-04-08] MEDS: SERTRALINE 50 MG TABLET. PO ×2 (09:00)
[2017-04-08] MEDS: TPN PER PHARMACY MC ×2 (13:13)
[2017-04-08] MEDS: VANCOMYCIN PER PHARMACY MC ×2 (13:21)
[2017-04-08] MEDS ORDERED: BISACODYL 10 MG SUPP.RECT. PR ×2 (13:30)
[2017-04-08] MEDS: FAMOTIDINE 20 MG/2 ML VIAL IVP ×2 (20:19)
[2017-04-08] MEDS: TOTAL PARENTERAL NUTRITION IV ×2 (22:14)
[2017-04-08] MEDS: AMINO ACIDS IV ×2 (22:14)
[2017-04-08] MEDS: [UNRECOGNIZED DRUG - OTHER] IV ×2 (22:14)
[2017-04-08] MEDS: DEXTROSE 70% IV ×2 (22:14)
[2017-04-09] MEDS: MORPHINE SULFATE 4 MG/ML DISP.SYRIN. IV ×12 (01:27→22:08)
[2017-04-09 05:58] LABS: ANION GAP 11 (6-14); BLOOD UREA NITROGEN 20 mg/dL (8-26); CALCIUM 8.5 mg/dL (8.5-10.1); CARBON DIOXIDE 22 mmol/L (21-32); CHLORIDE 104 mmol/L (98-107); CREATININE 0.6 mg/dL (0.7-1.3); GFR 137.4; GLUCOSE 107 mg/dL (70-99); MAGNESIUM 1.6 mg/dL (1.8-2.4); PHOSPHORUS 4.8 mg/dL (2.6-4.7); POTASSIUM 4.4 mmol/L (3.5-5.1); SODIUM 137 mmol/L (136-145)
[2017-04-09] MEDS: SERTRALINE 50 MG TABLET. PO ×2 (09:00)
[2017-04-09] MEDS: POLYETHYLENE GLYCOL 3350 17 GM PACKET. PO ×2 (09:00)
[2017-04-09] MEDS: IV NORMAL SALINE 500ML BAG 500 ML IV ×2 (09:15)
[2017-04-09] MEDS: cefTRIAXone IV Push 1 GM VIAL. IVP ×2 (10:30)
[2017-04-09] MEDS ORDERED: CONTRAST GIVEN MC ×2 (11:00)
[2017-04-09] MEDS: IOHEXOL 300 MG/ML 100ML VIAL. IV ×2 (11:19)
[2017-04-09] MEDS: TPN PER PHARMACY MC ×2 (12:26)
[2017-04-09] MEDS: FAMOTIDINE 20 MG/2 ML VIAL IVP ×2 (20:11)
[2017-04-09] MEDS: [UNRECOGNIZED DRUG - OTHER] IV ×2 (22:09)
[2017-04-09] MEDS: AMINO ACIDS IV ×2 (22:09)
[2017-04-09] MEDS: DEXTROSE 70% IV ×2 (22:09)
[2017-04-09] MEDS: TOTAL PARENTERAL NUTRITION IV ×2 (22:09)
[2017-04-10] MEDS: MORPHINE SULFATE 4 MG/ML DISP.SYRIN. IV ×10 (00:12→20:39)
[2017-04-10 05:48] LABS: ANION GAP 10 (6-14); BLOOD UREA NITROGEN 19 mg/dL (8-26); CALCIUM 8.1 mg/dL (8.5-10.1); CARBON DIOXIDE 21 mmol/L (21-32); CHLORIDE 107 mmol/L (98-107); CREATININE 0.5 mg/dL (0.7-1.3); GFR 169.6; GLUCOSE 102 mg/dL (70-99); MAGNESIUM 1.7 mg/dL (1.8-2.4); POTASSIUM 4.1 mmol/L (3.5-5.1); SODIUM 138 mmol/L (136-145)
[2017-04-10] MEDS: POLYETHYLENE GLYCOL 3350 17 GM PACKET. PO ×2 (09:00)
[2017-04-10] MEDS: SERTRALINE 50 MG TABLET. PO ×2 (09:00)
[2017-04-10] MEDS: cefTRIAXone IV Push 1 GM VIAL. IVP ×2 (09:28)
[2017-04-10] MEDS: TPN PER PHARMACY MC ×2 (12:28)
[2017-04-10] MEDS: NYSTATIN 100,000 UNITS/ML 5 ML ORAL.SUSP. SWSW ×4 (16:10→20:54)
[2017-04-10] MEDS: FLUCONAZOLE 200MG/100ML PREMIX 100 ML IV ×2 (17:55)
[2017-04-10] MEDS: FAMOTIDINE 20 MG/2 ML VIAL IVP ×2 (20:38)
[2017-04-10] MEDS: AMINO ACIDS IV ×2 (20:58)
[2017-04-10] MEDS: [UNRECOGNIZED DRUG - OTHER] IV ×2 (20:58)
[2017-04-10] MEDS: DEXTROSE 70% IV ×2 (20:58)
[2017-04-10] MEDS: TOTAL PARENTERAL NUTRITION IV ×2 (20:58)
[2017-04-11] MEDS: MORPHINE SULFATE 4 MG/ML DISP.SYRIN. IV ×8 (00:55→20:00)
[2017-04-11] MEDS: ONDANSETRON PF 4 MG/2 ML VIAL. IV ×2 (00:55)
[2017-04-11 06:56] LABS: ALBUMIN/GLOBULIN RATIO 0.4 (1.0-1.7); ALK PHOS 137 U/L (46-116); ALT (SGPT) 15 U/L (16-63); ANION GAP 12 (6-14); AST (SGOT) 20 U/L (15-37); BLOOD UREA NITROGEN 23 mg/dL (8-26); BUN/CREATININE RATIO 38 (6-20); CALCIUM 8.7 mg/dL (8.5-10.1); CARBON DIOXIDE 21 mmol/L (21-32); CHLORIDE 107 mmol/L (98-107); CREATININE 0.6 mg/dL (0.7-1.3); GFR 137.4; GLUCOSE 93 mg/dL (70-99); MAGNESIUM 1.7 mg/dL (1.8-2.4); PHOSPHORUS 4.4 mg/dL (2.6-4.7); POTASSIUM 4.2 mmol/L (3.5-5.1); SODIUM 140 mmol/L (136-145); TOTAL BILIRUBIN 0.3 mg/dL (0.2-1.0)
[2017-04-11] MEDS ORDERED: ONDANSETRON PF 4 MG/2 ML VIAL. IV ×2 (07:00)
[2017-04-11] MEDS ORDERED: LIDOCAINE 1% PF 2 ML VIAL. ID ×2 (07:00)
[2017-04-11] MEDS ORDERED: fentaNYL PF VIAL 100 MCG/2 ML VIAL IV ×4 (07:00)
[2017-04-11] MEDS ORDERED: MORPHINE SULFATE 2 MG/ML DISP.SYRIN. IV ×2 (07:00)
[2017-04-11] MEDS ORDERED: PROCHLORPERAZINE 10 MG/2 ML VIAL. IV ×2 (07:00)
[2017-04-11] MEDS ORDERED: IV RINGERS,LACTATED 1000ML 1,000 ML IV ×2 (07:00)
[2017-04-11] MEDS ORDERED: HYDROmorphone 2 MG/ML VIAL IV ×2 (07:00)
[2017-04-11] MEDS: POLYETHYLENE GLYCOL 3350 17 GM PACKET. PO ×2 (09:00)
[2017-04-11] MEDS: SERTRALINE 50 MG TABLET. PO ×2 (09:00)
[2017-04-11] MEDS: cefTRIAXone IV Push 1 GM VIAL. IVP ×2 (09:27)
[2017-04-11] MEDS: NYSTATIN 100,000 UNITS/ML 5 ML ORAL.SUSP. SWSW ×10 (09:27→22:13)
[2017-04-11] MEDS: TPN PER PHARMACY MC ×2 (12:12)
[2017-04-11] MEDS: FLUCONAZOLE 200MG/100ML PREMIX 100 ML IV ×2 (19:52)
[2017-04-11] MEDS: FAMOTIDINE 20 MG/2 ML VIAL IVP ×4 (22:08→22:12)
[2017-04-11] MEDS: DEXTROSE 70% IV ×2 (22:31)
[2017-04-11] MEDS: [UNRECOGNIZED DRUG - OTHER] IV ×2 (22:31)
[2017-04-11] MEDS: TOTAL PARENTERAL NUTRITION IV ×2 (22:31)
[2017-04-11] MEDS: AMINO ACIDS IV ×2 (22:31)
[2017-04-12 05:44] LABS: ADD MAN DIFF? NO
[2017-04-12 05:54] LABS: BASO # 0.1 x10^3/uL (0.0-0.2); BASO % 1 % (0-3); EOS # 0.1 x10^3/uL (0.0-0.7); EOS % 1 % (0-3); HEMATOCRIT 31.3 % (39.0-53.0); HEMOGLOBIN 10.2 g/dL (13.0-17.5); LYMPH # 1.2 x10^3/uL (1.0-4.8); LYMPH % 14 % (24-48); MEAN CORPUSCULAR HEMOGLOBIN 29 pg (25-35); MEAN CORPUSCULAR HGB CONC 33 g/dL (31-37); MEAN CORPUSCULAR VOLUME 88 fL (79-100); MONO # 0.6 x10^3/uL (0.0-1.1); MONO % 6 % (0-9); NEUT # 7.1 x10^3uL (1.8-7.7); NEUT % 79 % (31-73); PLATELET COUNT 345 x10^3/uL (140-400); RED BLOOD COUNT 3.57 x10^6/uL (4.30-5.70); RED CELL DISTRIBUTION WIDTH 14.7 % (11.5-14.5)
[2017-04-12] MEDS: MORPHINE SULFATE 4 MG/ML DISP.SYRIN. IV ×8 (06:25→20:30)
[2017-04-12 06:31] LABS: ALBUMIN 2.1 g/dL (3.4-5.0); ALBUMIN/GLOBULIN RATIO 0.4 (1.0-1.7); ALK PHOS 134 U/L (46-116); ALT (SGPT) 14 U/L (16-63); ANION GAP 11 (6-14); AST (SGOT) 18 U/L (15-37); BLOOD UREA NITROGEN 25 mg/dL (8-26); BUN/CREATININE RATIO 42 (6-20); CALCIUM 8.6 mg/dL (8.5-10.1); CARBON DIOXIDE 21 mmol/L (21-32); CHLORIDE 107 mmol/L (98-107); CREATININE 0.6 mg/dL (0.7-1.3); GFR 137.4; GLUCOSE 115 mg/dL (70-99); POTASSIUM 4.3 mmol/L (3.5-5.1); SODIUM 139 mmol/L (136-145); TOTAL BILIRUBIN 0.3 mg/dL (0.2-1.0); TOTAL PROTEIN 7.2 g/dL (6.4-8.2)
[2017-04-12] MEDS: POLYETHYLENE GLYCOL 3350 17 GM PACKET. PO ×2 (07:24)
[2017-04-12] MEDS: SERTRALINE 50 MG TABLET. PO ×2 (07:24)
[2017-04-12] MEDS: cefTRIAXone IV Push 1 GM VIAL. IVP ×2 (09:54)
[2017-04-12] MEDS: ALTEPLASE 2 MG VIAL INT CAT ×2 (10:25)
[2017-04-12 13:36] LABS: PHOSPHORUS 4.1 mg/dL (2.6-4.7)
[2017-04-12 13:36] LABS: MAGNESIUM 1.8 mg/dL (1.8-2.4)
[2017-04-12] MEDS: TPN PER PHARMACY MC ×2 (14:14)
[2017-04-12] MEDS: NYSTATIN 100,000 UNITS/ML 5 ML ORAL.SUSP. SWSW ×6 (14:47→20:28)
[2017-04-12] MEDS: FLUCONAZOLE 200MG/100ML PREMIX 100 ML IV ×2 (16:57)
[2017-04-12] MEDS: diphenhydrAMINE 50 MG/ML VIAL IVP ×2 (21:39)
[2017-04-12] MEDS: TOTAL PARENTERAL NUTRITION IV ×2 (21:39)
[2017-04-12] MEDS: [UNRECOGNIZED DRUG - OTHER] IV ×2 (21:39)
[2017-04-12] MEDS: AMINO ACIDS IV ×2 (21:39)
[2017-04-12] MEDS: DEXTROSE 70% IV ×2 (21:39)
[2017-04-13] MEDS: MORPHINE SULFATE 4 MG/ML DISP.SYRIN. IV ×8 (01:35→20:24)
[2017-04-13] MEDS: diphenhydrAMINE 50 MG/ML VIAL IVP ×4 (05:55→20:23)
[2017-04-13] MEDS: POLYETHYLENE GLYCOL 3350 17 GM PACKET. PO ×2 (09:00)
[2017-04-13] MEDS: SERTRALINE 50 MG TABLET. PO ×2 (09:00)
[2017-04-13] MEDS: NYSTATIN 100,000 UNITS/ML 5 ML ORAL.SUSP. SWSW ×8 (09:00→20:24)
[2017-04-13] MEDS: cefTRIAXone IV Push 1 GM VIAL. IVP ×2 (10:26)
[2017-04-13] MEDS: TPN PER PHARMACY MC ×2 (14:01)
[2017-04-13] MEDS: FLUCONAZOLE 200MG/100ML PREMIX 100 ML IV ×2 (15:38)
[2017-04-13] MEDS: FAMOTIDINE 20 MG/2 ML VIAL IVP ×2 (20:23)
[2017-04-13] MEDS: [UNRECOGNIZED DRUG - OTHER] IV ×2 (22:00)
[2017-04-13] MEDS: TOTAL PARENTERAL NUTRITION IV ×2 (22:00)
[2017-04-13] MEDS: AMINO ACIDS IV ×2 (22:00)
[2017-04-13] MEDS: DEXTROSE 70% IV ×2 (22:00)
[2017-04-14] MEDS: MORPHINE SULFATE 4 MG/ML DISP.SYRIN. IV ×10 (02:12→22:03)
[2017-04-14] MEDS: diphenhydrAMINE 50 MG/ML VIAL IVP ×4 (02:12→22:02)
[2017-04-14] MEDS: POLYETHYLENE GLYCOL 3350 17 GM PACKET. PO ×2 (09:00)
[2017-04-14] MEDS: SERTRALINE 50 MG TABLET. PO ×2 (09:00)
[2017-04-14] MEDS: cefTRIAXone IV Push 1 GM VIAL. IVP ×2 (09:23)
[2017-04-14] MEDS: NYSTATIN 100,000 UNITS/ML 5 ML ORAL.SUSP. SWSW ×8 (09:24→22:02)
[2017-04-14] MEDS: BISACODYL 10 MG SUPP.RECT. PR ×2 (09:24)
[2017-04-14] MEDS: TPN PER PHARMACY MC ×2 (10:53)
[2017-04-14] MEDS: FLUCONAZOLE 200MG/100ML PREMIX 100 ML IV ×2 (15:54)
[2017-04-14] MEDS: FAMOTIDINE 20 MG/2 ML VIAL IVP ×2 (22:02)
[2017-04-14] MEDS: [UNRECOGNIZED DRUG - OTHER] IV ×2 (22:07)
[2017-04-14] MEDS: AMINO ACIDS IV ×2 (22:07)
[2017-04-14] MEDS: TOTAL PARENTERAL NUTRITION IV ×2 (22:07)
[2017-04-14] MEDS: DEXTROSE 70% IV ×2 (22:07)
[2017-04-15] MEDS: MORPHINE SULFATE 4 MG/ML DISP.SYRIN. IV ×10 (06:12→20:44)
[2017-04-15] MEDS: diphenhydrAMINE 50 MG/ML VIAL IVP ×6 (06:13→20:44)
[2017-04-15 06:59] LABS: ALBUMIN 2.2 g/dL (3.4-5.0); ALBUMIN/GLOBULIN RATIO 0.4 (1.0-1.7); ALK PHOS 111 U/L (46-116); ALT (SGPT) 18 U/L (16-63); ANION GAP 8 (6-14); AST (SGOT) 26 U/L (15-37); BLOOD UREA NITROGEN 20 mg/dL (8-26); BUN/CREATININE RATIO 33 (6-20); CALCIUM 8.3 mg/dL (8.5-10.1); CARBON DIOXIDE 26 mmol/L (21-32); CHLORIDE 102 mmol/L (98-107); CREATININE 0.6 mg/dL (0.7-1.3); GFR 137.4; GLUCOSE 102 mg/dL (70-99); MAGNESIUM 1.6 mg/dL (1.8-2.4); PHOSPHORUS 4.3 mg/dL (2.6-4.7); POTASSIUM 4.5 mmol/L (3.5-5.1); SODIUM 136 mmol/L (136-145); TOTAL BILIRUBIN 0.3 mg/dL (0.2-1.0); TOTAL PROTEIN 7.2 g/dL (6.4-8.2)
[2017-04-15] MEDS: IOHEXOL 300 MG/ML 100ML VIAL. IV ×2 (08:38)
[2017-04-15] MEDS: SERTRALINE 50 MG TABLET. PO ×2 (09:00)
[2017-04-15] MEDS: NYSTATIN 100,000 UNITS/ML 5 ML ORAL.SUSP. SWSW ×2 (09:00)
[2017-04-15] MEDS: POLYETHYLENE GLYCOL 3350 17 GM PACKET. PO ×2 (09:00)
[2017-04-15] MEDS: cefTRIAXone IV Push 1 GM VIAL. IVP ×2 (09:05)
[2017-04-15] MEDS: TPN PER PHARMACY MC ×2 (13:24)
[2017-04-15] MEDS: FLUCONAZOLE 200MG/100ML PREMIX 100 ML IV ×2 (17:03)
[2017-04-15] MEDS: FAMOTIDINE 20 MG/2 ML VIAL IVP ×2 (20:43)
[2017-04-15] MEDS: [UNRECOGNIZED DRUG - OTHER] IV ×2 (21:34)
[2017-04-15] MEDS: AMINO ACIDS IV ×2 (21:34)
[2017-04-15] MEDS: TOTAL PARENTERAL NUTRITION IV ×2 (21:34)
[2017-04-15] MEDS: DEXTROSE 70% IV ×2 (21:34)
[2017-04-16] MEDS: MORPHINE SULFATE 4 MG/ML DISP.SYRIN. IV ×10 (03:02→23:56)
[2017-04-16] MEDS: diphenhydrAMINE 50 MG/ML VIAL IVP ×6 (03:02→20:44)
[2017-04-16] MEDS: SERTRALINE 50 MG TABLET. PO ×2 (09:00)
[2017-04-16] MEDS: POLYETHYLENE GLYCOL 3350 17 GM PACKET. PO ×2 (09:00)
[2017-04-16] MEDS: cefTRIAXone IV Push 1 GM VIAL. IVP ×2 (09:31)
[2017-04-16] MEDS: TPN PER PHARMACY MC ×2 (12:12)
[2017-04-16] MEDS: FLUCONAZOLE 200MG/100ML PREMIX 100 ML IV ×2 (15:23)
[2017-04-16] MEDS: FAMOTIDINE 20 MG/2 ML VIAL IVP ×2 (20:45)
[2017-04-16] MEDS: [UNRECOGNIZED DRUG - OTHER] IV ×2 (23:25)
[2017-04-16] MEDS: AMINO ACIDS IV ×2 (23:25)
[2017-04-16] MEDS: DEXTROSE 70% IV ×2 (23:25)
[2017-04-16] MEDS: TOTAL PARENTERAL NUTRITION IV ×2 (23:25)
[2017-04-17] MEDS: MORPHINE SULFATE 4 MG/ML DISP.SYRIN. IV ×8 (05:43→21:21)
[2017-04-17] MEDS: diphenhydrAMINE 50 MG/ML VIAL IVP ×2 (05:44)
[2017-04-17 07:02] LABS: ANION GAP 8 (6-14); BLOOD UREA NITROGEN 20 mg/dL (8-26); CALCIUM 8.9 mg/dL (8.5-10.1); CARBON DIOXIDE 27 mmol/L (21-32); CHLORIDE 102 mmol/L (98-107); CREATININE 0.6 mg/dL (0.7-1.3); GFR 137.4; GLUCOSE 97 mg/dL (70-99); MAGNESIUM 1.6 mg/dL (1.8-2.4); PHOSPHORUS 4.1 mg/dL (2.6-4.7); POTASSIUM 4.4 mmol/L (3.5-5.1); SODIUM 137 mmol/L (136-145)
[2017-04-17] MEDS: POLYETHYLENE GLYCOL 3350 17 GM PACKET. PO ×2 (08:45)
[2017-04-17] MEDS: cefTRIAXone IV Push 1 GM VIAL. IVP ×2 (08:47)
[2017-04-17] MEDS: SERTRALINE 50 MG TABLET. PO ×2 (08:53)
[2017-04-17] MEDS: TPN PER PHARMACY MC ×2 (12:02)
[2017-04-17] MEDS: MAGNESIUM SULFATE 2GM 50 ML IV ×2 (13:34)
[2017-04-17] MEDS: FLUCONAZOLE 200MG/100ML PREMIX 100 ML IV ×2 (17:16)
[2017-04-17] MEDS: FAMOTIDINE 20 MG/2 ML VIAL IVP ×2 (21:22)
[2017-04-17] MEDS: [UNRECOGNIZED DRUG - OTHER] IV ×2 (22:16)
[2017-04-17] MEDS: DEXTROSE 70% IV ×2 (22:16)
[2017-04-17] MEDS: AMINO ACIDS IV ×2 (22:16)
[2017-04-17] MEDS: TOTAL PARENTERAL NUTRITION IV ×2 (22:16)
[2017-04-18] MEDS: MORPHINE SULFATE 4 MG/ML DISP.SYRIN. IV ×6 (03:05→21:04)
[2017-04-18] MEDS ORDERED: fentaNYL PF VIAL 100 MCG/2 ML VIAL IV ×2 (07:00)
[2017-04-18] MEDS ORDERED: HYDROmorphone 2 MG/ML VIAL IV ×2 (07:00)
[2017-04-18] MEDS ORDERED: MORPHINE SULFATE 2 MG/ML DISP.SYRIN. IV ×2 (07:00)
[2017-04-18] MEDS ORDERED: ONDANSETRON PF 4 MG/2 ML VIAL. IV ×2 (07:00)
[2017-04-18] MEDS ORDERED: LIDOCAINE 1% PF 2 ML VIAL. ID ×2 (07:00)
[2017-04-18] MEDS ORDERED: SUCCINYLCHOLINE 200 MG/10 ML VIAL. ×2 (08:06)
[2017-04-18] MEDS ORDERED: LIDOCAINE 2% PF Vial for OR 5 ML VIAL. ×2 (08:06)
[2017-04-18] MEDS ORDERED: DEXAMETHASONE SOD PHOS 20 MG/5 ML VIAL. ×2 (08:06)
[2017-04-18] MEDS ORDERED: ONDANSETRON PF 4 MG/2 ML VIAL. ×2 (08:06)
[2017-04-18] MEDS ORDERED: PROPOFOL 20 ML IV ×2 (08:06)
[2017-04-18] MEDS ORDERED: fentaNYL PF VIAL 100 MCG/2 ML VIAL ×4 (08:07→10:29)
[2017-04-18] MEDS ORDERED: ROCURONIUM 50 MG/5 ML VIAL. ×2 (08:07)
[2017-04-18] MEDS: IV RINGERS,LACTATED 1000ML 1,000 ML IV ×2 (08:38)
[2017-04-18] MEDS: cefTRIAXone IV Push 1 GM VIAL. IVP ×2 (08:39)
[2017-04-18] MEDS: SERTRALINE 50 MG TABLET. PO ×2 (09:00)
[2017-04-18] MEDS: POLYETHYLENE GLYCOL 3350 17 GM PACKET. PO ×2 (09:00)
[2017-04-18] MEDS ORDERED: NEOSTIGMINE METHYLSULFATE 5 MG/5 ML SYRINGE. ×2 (10:01)
[2017-04-18] MEDS ORDERED: GLYCOPYRROLATE 1 MG/5 ML VIAL. ×2 (10:02)
[2017-04-18] MEDS ORDERED: SEVOFLURANE 61 TO 120 MINUTES. IH ×2 (10:24)
[2017-04-18] MEDS ORDERED: PROCHLORPERAZINE 10 MG/2 ML VIAL. ×2 (10:30)
[2017-04-18] MEDS: fentaNYL PF VIAL 100 MCG/2 ML VIAL IV ×4 (10:37→10:46)
[2017-04-18] MEDS: PROCHLORPERAZINE 10 MG/2 ML VIAL. IV ×4 (10:47→11:00)
[2017-04-18] MEDS: TPN PER PHARMACY MC ×2 (13:40)
[2017-04-18] MEDS: BUPIVACAINE-EPI 0.25%-1:200000 50 ML VIAL. ×2 (14:35)
[2017-04-18] MEDS: FAMOTIDINE 20 MG/2 ML VIAL IVP ×2 (21:04)
[2017-04-18] MEDS: TOTAL PARENTERAL NUTRITION IV ×2 (22:15)
[2017-04-18] MEDS: DEXTROSE 70% IV ×2 (22:15)
[2017-04-18] MEDS: [UNRECOGNIZED DRUG - OTHER] IV ×2 (22:15)
[2017-04-18] MEDS: AMINO ACIDS IV ×2 (22:15)
[2017-04-19] MEDS: diphenhydrAMINE 50 MG/ML VIAL IVP ×4 (02:52→21:22)
[2017-04-19] MEDS: MORPHINE SULFATE 4 MG/ML DISP.SYRIN. IV ×8 (02:54→21:22)
[2017-04-19] MEDS: POLYETHYLENE GLYCOL 3350 17 GM PACKET. PO ×4 (09:33→21:19)
[2017-04-19] MEDS: cefTRIAXone IV Push 1 GM VIAL. IVP ×2 (09:34)
[2017-04-19] MEDS: SERTRALINE 50 MG TABLET. PO ×2 (09:34)
[2017-04-19] MEDS: TPN PER PHARMACY MC ×2 (15:02)
[2017-04-19] MEDS: AMINO ACIDS IV ×2 (21:20)
[2017-04-19] MEDS: [UNRECOGNIZED DRUG - OTHER] IV ×2 (21:20)
[2017-04-19] MEDS: DEXTROSE 70% IV ×2 (21:20)
[2017-04-19] MEDS: TOTAL PARENTERAL NUTRITION IV ×2 (21:20)
[2017-04-20] MEDS: MORPHINE SULFATE 4 MG/ML DISP.SYRIN. IV ×6 (02:33→22:05)
[2017-04-20] MEDS: diphenhydrAMINE 50 MG/ML VIAL IVP ×4 (05:22→22:05)
[2017-04-20] MEDS: ONDANSETRON PF 4 MG/2 ML VIAL. IV ×2 (05:24)
[2017-04-20] MEDS: POLYETHYLENE GLYCOL 3350 17 GM PACKET. PO ×4 (09:00→22:02)
[2017-04-20] MEDS: LANSOPRAZOLE 30 MG TAB.RAP.DR FT ×2 (10:05)
[2017-04-20] MEDS: cefTRIAXone IV Push 1 GM VIAL. IVP ×2 (10:06)
[2017-04-20] MEDS: SERTRALINE 50 MG TABLET. PO ×2 (10:07)
[2017-04-20] MEDS: TPN PER PHARMACY MC ×2 (13:45)
[2017-04-20] MEDS: DEXTROSE 70% IV ×2 (22:03)
[2017-04-20] MEDS: TOTAL PARENTERAL NUTRITION IV ×2 (22:03)
[2017-04-20] MEDS: [UNRECOGNIZED DRUG - OTHER] IV ×2 (22:03)
[2017-04-20] MEDS: AMINO ACIDS IV ×2 (22:03)
[2017-04-21] MEDS: MORPHINE SULFATE 4 MG/ML DISP.SYRIN. IV ×8 (05:53→21:36)
[2017-04-21] MEDS: diphenhydrAMINE 50 MG/ML VIAL IVP ×4 (05:53→21:38)
[2017-04-21] MEDS: cefTRIAXone IV Push 1 GM VIAL. IVP ×2 (10:34)
[2017-04-21] MEDS: POLYETHYLENE GLYCOL 3350 17 GM PACKET. PO ×4 (10:34→21:34)
[2017-04-21] MEDS: SERTRALINE 50 MG TABLET. PO ×2 (10:34)
[2017-04-21] MEDS: LANSOPRAZOLE 30 MG TAB.RAP.DR FT ×2 (10:34)
[2017-04-22] MEDS: diphenhydrAMINE 50 MG/ML VIAL IVP ×4 (03:29→21:07)
[2017-04-22] MEDS: MORPHINE SULFATE 4 MG/ML DISP.SYRIN. IV ×8 (03:29→21:07)
[2017-04-22] MEDS: POLYETHYLENE GLYCOL 3350 17 GM PACKET. PO ×4 (08:56→21:06)
[2017-04-22] MEDS: LANSOPRAZOLE 30 MG TAB.RAP.DR FT ×2 (08:56)
[2017-04-22] MEDS: SERTRALINE 50 MG TABLET. PO ×2 (08:57)
[2017-04-22] MEDS: cefTRIAXone IV Push 1 GM VIAL. IVP ×2 (08:57)
[2017-04-22] MEDS: BISACODYL 10 MG SUPP.RECT. PR ×2 (17:48)
[2017-04-23] MEDS: MORPHINE SULFATE 4 MG/ML DISP.SYRIN. IV ×10 (02:43→21:08)
[2017-04-23 05:44] LABS: MEAN CORPUSCULAR HEMOGLOBIN 29 pg (25-35); MEAN CORPUSCULAR HGB CONC 34 g/dL (31-37); MEAN CORPUSCULAR VOLUME 87 fL (79-100); PLATELET COUNT 298 x10^3/uL (140-400); RED BLOOD COUNT 3.44 x10^6/uL (4.30-5.70); RED CELL DISTRIBUTION WIDTH 15.6 % (11.5-14.5); WHITE BLOOD COUNT 6.7 x10^3/uL (4.0-11.0)
[2017-04-23 06:04] LABS: ANION GAP 5 (6-14); BLOOD UREA NITROGEN 19 mg/dL (8-26); CALCIUM 8.4 mg/dL (8.5-10.1); CARBON DIOXIDE 31 mmol/L (21-32); CHLORIDE 99 mmol/L (98-107); CREATININE 0.6 mg/dL (0.7-1.3); GFR 137.4; GLUCOSE 122 mg/dL (70-99); POTASSIUM 4.2 mmol/L (3.5-5.1); SODIUM 135 mmol/L (136-145)
[2017-04-23] MEDS: LANSOPRAZOLE 30 MG TAB.RAP.DR FT ×2 (08:49)
[2017-04-23] MEDS: SERTRALINE 50 MG TABLET. PO ×2 (08:49)
[2017-04-23] MEDS: POLYETHYLENE GLYCOL 3350 17 GM PACKET. PO ×4 (08:49→21:07)
[2017-04-23] MEDS: cefTRIAXone IV Push 1 GM VIAL. IVP ×2 (08:50)
[2017-04-23] MEDS: metroNIDAZOLE 500 MG TABLET PEG ×2 (21:07)
[2017-04-23] MEDS: diphenhydrAMINE 50 MG/ML VIAL IVP ×2 (21:08)
[2017-04-24] MEDS: MORPHINE SULFATE 4 MG/ML DISP.SYRIN. IV ×8 (00:26→14:22)
[2017-04-24] MEDS: diphenhydrAMINE 50 MG/ML VIAL IVP ×2 (05:14)
[2017-04-24] MEDS: POLYETHYLENE GLYCOL 3350 17 GM PACKET. PO ×2 (10:20)
[2017-04-24] MEDS: metroNIDAZOLE 500 MG TABLET PEG ×2 (10:21)
[2017-04-24] MEDS: SERTRALINE 50 MG TABLET. PO ×2 (10:21)
[2017-04-24] MEDS: LANSOPRAZOLE 30 MG TAB.RAP.DR FT ×2 (10:21)
[2017-04-24] MEDS: ONDANSETRON PF 4 MG/2 ML VIAL. IV ×2 (10:21)
[2017-04-24] MEDS: CEFPODOXIME 100 MG/5 ML ORAL.SUSP. PEG ×2 (10:25)
== END 2017-04-24 15:00 | DRG 326 ==
LOC: 5 SOUTH 03-23 15:25 → ER 19:11 → 5 SOUTH 21:16
PROC: 0DJ08ZZ Inspection of Upper Intestinal Tract, Via Natural or Artificial Opening Endoscopic (ICD-10-PCS; principal; 2017-03-15 12:06)
PROC: 0DH60UZ Insertion of Feeding Device into Stomach, Open Approach (ICD-10-PCS; 2017-03-15 12:06)
PROC: 0DN64ZZ Release Stomach, Percutaneous Endoscopic Approach (ICD-10-PCS; 2017-03-15 12:06)
PROC: 3E0G76Z Introduction of Nutritional Substance into Upper GI, Via Natural or Artificial Opening (ICD-10-PCS; 2017-03-15 12:06)
PROC: 0DH64UZ Insertion of Feeding Device into Stomach, Percutaneous Endoscopic Approach (ICD-10-PCS; 2017-03-15 12:06)
DX: R13.12 Dysphagia, oropharyngeal phase (principal); K65.1 Peritoneal abscess; I47.2 Ventricular tachycardia; J90 Pleural effusion, not elsewhere classified; K56.7 Ileus, unspecified; K94.22 Gastrostomy infection; G20 Parkinson's disease; E87.1 Hypo-osmolality and hyponatremia; L03.311 Cellulitis of abdominal wall; R47.01 Aphasia; B37.9 Candidiasis, unspecified; K29.70 Gastritis, unspecified, without bleeding; K44.9 Diaphragmatic hernia without obstruction or gangrene; B96.20 Unspecified Escherichia coli [E. coli] as the cause of diseases classified elsewhere; E78.5 Hyperlipidemia, unspecified; F32.9 Major depressive disorder, single episode, unspecified; I10 Essential (primary) hypertension; K21.9 Gastro-esophageal reflux disease without esophagitis; N40.0 Benign prostatic hyperplasia without lower urinary tract symptoms; R47.02 Dysphasia; M10.9 Gout, unspecified; I69.320 Aphasia following cerebral infarction; Z91.018 Allergy to other foods
CPT/HCPCS: 36415; 36569; 43246; 49406; 71010; 71045; 74018; 74177; 80048; 80053; 80202; 81001; 82565; 83735; 84100; 84443; 84478; 85007; 85025; 85027; 85610; 85651; 85730; 87071; 87075; 87186; 87205; 87641; 93005; 93306; 99152; 99153; 99285; 99285-25; A4215; C1729; J0330; J0610; J0690; J0696; J0780; J1100; J1200; J1450; J2060; J2250; J2270; J2370; J2405; J2543; J2704; J2710; J2997; J3010; J3370; J3475; J3490; J7030; J7040; J7060; J7120; Q9967; S0028

== ENCOUNTER → 2017-03-14 | Outpatient (CLI) | payer OTHER ==
[2017-03-14] MEDS: BARIUM SULFATE 40% (APPLE) 148 GM PWD. PO (13:31)
== END | disposition home or self-care (01) ==
LOC: RAD 12:08
DX: R13.19 Other dysphagia (principal); R47.02 Dysphasia
CPT/HCPCS: 74230; 92611-GN; G8996-CM-GN; G8997-CM-GN; G8998-CM-GN

== ENCOUNTER 2017-05-19 00:18 | Emergency (ER) | payer OTHER ==
[2017-05-19 01:13] LABS: BILIRUBIN,URINE NEGATIVE (NEG); CLARITY,URINE CLEAR; COLOR,URINE YELLOW; GLUCOSE,URINE NEGATIVE (NEG); NITRITE,URINE NEGATIVE (NEG); PROTEIN,URINE NEGATIVE (NEG-TRACE)
[2017-05-19] MEDS: IV NORMAL SALINE 1000ML BAG 1,000 ML IV (01:16)
[2017-05-19 01:25] LABS: AMORPHOUS SEDIMENT,UR PRESENT /HPF; BACTERIA,URINE 0 /HPF (0-FEW); SQUAMOUS EPITHELIAL CELL,UR FEW /LPF; WBC,URINE OCC /HPF (0-4)
[2017-05-19] MEDS: ONDANSETRON PF 4 MG/2 ML VIAL. IV (01:30)
[2017-05-19] MEDS ORDERED: CONTRAST GIVEN MC (01:45)
[2017-05-19 01:54] LABS: ADD MAN DIFF? NO
[2017-05-19 01:56] LABS: BASO % 0 % (0-3); EOS # 0.1 x10^3/uL (0.0-0.7); EOS % 1 % (0-3); HEMATOCRIT 34.2 % (39.0-53.0); HEMOGLOBIN 11.4 g/dL (13.0-17.5); LYMPH # 1.1 x10^3/uL (1.0-4.8); LYMPH % 12 % (24-48); MEAN CORPUSCULAR HEMOGLOBIN 30 pg (25-35); MEAN CORPUSCULAR HGB CONC 33 g/dL (31-37); MEAN CORPUSCULAR VOLUME 89 fL (79-100); MONO # 0.5 x10^3/uL (0.0-1.1); MONO % 6 % (0-9); NEUT # 7.5 x10^3uL (1.8-7.7); NEUT % 81 % (31-73); PLATELET COUNT 214 x10^3/uL (140-400); RED BLOOD COUNT 3.82 x10^6/uL (4.30-5.70); RED CELL DISTRIBUTION WIDTH 16.3 % (11.5-14.5); WHITE BLOOD COUNT 9.3 x10^3/uL (4.0-11.0)
[2017-05-19 02:07] LABS: ANION GAP 7 (6-14); BLOOD UREA NITROGEN 25 mg/dL (8-26); BUN/CREATININE RATIO 42 (6-20); CALCIUM 8.8 mg/dL (8.5-10.1); CARBON DIOXIDE 28 mmol/L (21-32); CHLORIDE 105 mmol/L (98-107); CREATININE 0.6 mg/dL (0.7-1.3); GFR 137.4; GLUCOSE 100 mg/dL (70-99); POTASSIUM 3.7 mmol/L (3.5-5.1); SODIUM 140 mmol/L (136-145)
[2017-05-19 02:12] LABS: ALBUMIN 2.6 g/dL (3.4-5.0); ALBUMIN/GLOBULIN RATIO 0.6 (1.0-1.7); ALK PHOS 92 U/L (46-116); ALT (SGPT) 9 U/L (16-63); AST (SGOT) 24 U/L (15-37); LIPASE 193 U/L (73-393); TOTAL BILIRUBIN 0.3 mg/dL (0.2-1.0); TOTAL PROTEIN 6.8 g/dL (6.4-8.2)
[2017-05-19] MEDS: IOHEXOL 300 MG/ML 100ML VIAL. IV (02:27)
== END 2017-05-19 04:30 | disposition home or self-care (01) ==
LOC: ER 04:30
DX: R10.9 Unspecified abdominal pain (principal); Z86.73 Personal history of transient ischemic attack (TIA), and cerebral infarction without residual deficits; Z91.018 Allergy to other foods
CPT/HCPCS: 36415; 74177; 80053; 81001; 83690; 85025; 93005; 96360; 99285-25; J7030; Q9967

== ENCOUNTER 2017-08-24 03:51 | Emergency (ER) | payer OTHER | END 2017-08-24 04:56 | disposition home or self-care (01) | LOC: ER 03:51 | DX: S00.83XA Contusion of other part of head, initial encounter (principal); Z86.73 Personal history of transient ischemic attack (TIA), and cerebral infarction without residual deficits; R10.9 Unspecified abdominal pain; Z74.01 Bed confinement status; Z91.018 Allergy to other foods; W06.XXXA Fall from bed, initial encounter; Y93.89 Activity, other specified; Y99.8 Other external cause status; Y92.89 Other specified places as the place of occurrence of the external cause | CPT/HCPCS: 99284 ==

== ENCOUNTER 2017-12-31 15:59 | Inpatient (IN) | payer OTHER ==
[~2017-12-31] VITALS: Ht 175.3 cm; Wt 63.1 kg
[~2017-12-31 15:59] MED LIST: ACET325T9 PO; ALLO100T PEG; ALPR0.25 PO; ASPI325T8 PO; BISA10SU15 RC; CALC500T PO; CARB1TAB22 PO; CEFP100S PEG; FLUT9.9S NS; LEVE500T56 PO; LORA10TA3 PEG; MAG360OR24 PO; MAGN400O7 PO; METR500T PEG; OXYC-327 PO; PANT40TA3 PO; SENN-37 PO; SERT50TA8 PO; SIMV10TA3 PO; SODI30SP NS; ZOLP5TAB PO
[2017-12-31 16:55] LABS: BASO % 0 % (0-3); EOS % 0 % (0-3); HEMOGLOBIN 14.1 g/dL (13.0-17.5); LYMPH # 0.4 x10^3/uL (1.0-4.8); LYMPH % 2 % (24-48); MEAN CORPUSCULAR HEMOGLOBIN 32 pg (25-35); MEAN CORPUSCULAR HGB CONC 35 g/dL (31-37); MEAN CORPUSCULAR VOLUME 91 fL (79-100); MONO # 0.5 x10^3/uL (0.0-1.1); MONO % 3 % (0-9); NEUT # 15.9 x10^3uL (1.8-7.7); NEUT % 94 % (31-73); PLATELET COUNT 308 x10^3/uL (140-400); RED BLOOD COUNT 4.48 x10^6/uL (4.30-5.70); RED CELL DISTRIBUTION WIDTH 13.7 % (11.5-14.5); WHITE BLOOD COUNT 16.8 x10^3/uL (4.0-11.0)
--- NOTE | 2017-12-31 17:01 | PHYS DOC ---
Past Medical History Past Medical History: Constipation, CVA, Other Additional Past Medical Histor: Aphasia, cortobasal degeneration; joint disorders of bilat hands; dsyphasiA Past Surgical History: No Surgical History Alcohol Use: None Drug Use: None Adult General Chief Complaint Chief Complaint: NAUSEA/VOMITING/DIARRHA HPI HPI Patient is a 62 year old male who presents with possible GI bleeding. Presents from a half-way where he is a resident. He has severe deficit following a significant CVA. He is contractured. He is nonverbal. He was referred to the emergency department today for evaluation of 2 day history of abdominal pain. He also had been complaining of some nausea and vomiting. Today , he was reported to have coffee ground emesis. Patient denies hematochezia or melena. No fever is reported. The patient is fed through a G-tube at baseline. Review of Systems Review of Systems Constitutional: Denies fever Eyes: Denies HENT: Denies Respiratory: Denies sob Cardiovascular: No additional information not addressed in HPI GI: as documented above : Denies dysuria Musculoskeletal: Denies back pain Integument: Denies rash Neurologic: Denies headache All other systems were reviewed and found to be within normal limits, except as documented in this note. Current Medications Current Medications Current Medications Medications (Trade) Dose Ordered Sig/Ksenia Start Time Stop Time Status Last Admin Dose Admin Cefoxitin Sodium 2 gm/Dextrose 100 ml @ 200 mls/hr Q8HRS 12/31/17 22:00 UNV Fentanyl Citrate (Fentanyl 2ml Vial) 75 mcg 1X ONCE 12/31/17 19:45 12/31/17 19:46 DC 12/31/17 19:37 75 MCG Info (CONTRAST GIVEN -- Rx MONITORING) 1 each PRN DAILY PRN 12/31/17 17:15 01/02/18 17:14 Iohexol (Omnipaque 300 Mg/ml) 75 ml 1X ONCE 12/31/17 17:15 12/31/17 17:16 DC 12/31/17 17:15 75 ML Metronidazole 100 ml @ 100 mls/hr Q8HRS 12/31/17 22:00 UNV Morphine Sulfate (Morphine Sulfate) 4 mg PRN Q2HR PRN 12/31/17 19:45 01/01/18 19:44 Octreotide Acetate 500 mcg/ Sodium Chloride 101 ml @ 5.05 mls/hr CONT PRN 12/31/17 19:45 Ondansetron HCl (Zofran) 4 mg PRN Q8HRS PRN 12/31/17 19:45 01/01/18 19:44 Pantoprazole Sodium (PROTONIX VIAL for IV PUSH) 80 mg 1X ONCE 12/31/17 19:00 12/31/17 19:01 DC 12/31/17 19:06 80 MG Pantoprazole Sodium 80 mg/ Sodium Chloride 100 ml @ 10 mls/hr 1X ONCE 12/31/17 19:00 01/01/18 04:59 12/31/17 19:06 10 MLS/HR Sodium Chloride 1,000 ml @ 125 mls/hr Q8H 12/31/17 19:45 01/01/18 19:44 Allergies Allergies Allergies Coded Allergies Type Severity Reaction Last Updated Verified Beef Containing Products Adverse Reaction Intermediate 04/18/17 Yes Physical Exam Physical Exam Constitutional: Chronically ill-appearing, contractured patient. No acute distress HENT: Normocephalic, atraumatic, MM's dry Eyes: PERRLA, EOMI Neck: supple, no JVD Cardiovascular:Heart rate regular rhythm Lungs & Thorax: Bilateral breath sounds clear Abdomen: tender to palpation diffusely, well-appearing G-tube in place, abd is soft. no guarding or rebound Skin: Warm, dry Extremities: contractured. equal pulses globally, no edema Neurologic: Alert and oriented X 3 but non-verbal Current Patient Data Vital Signs Vital Signs Date Time Temp Pulse Resp B/P (MAP) Pulse Ox O2 Delivery O2 Flow Rate FiO2 12/31/17 19:37 21 94 Nasal Cannula 5.5 12/31/17 19:32 112/66 (81) 12/31/17 19:02 84 12/31/17 16:21 99.7 99.7 Lab Values Laboratory Tests Test 12/31/17 16:32 12/31/17 17:30 White Blood Count 16.8 x10^3/uL (4.0-11.0) H Red Blood Count 4.48 x10^6/uL (4.30-5.70) Hemoglobin 14.1 g/dL (13.0-17.5) Hematocrit 41.0 % (39.0-53.0) Mean Corpuscular Volume 91 fL (79-100) Mean Corpuscular Hemoglobin 32 pg (25-35) Mean Corpuscular Hemoglobin Concent 35 g/dL (31-37) Red Cell Distribution Width 13.7 % (11.5-14.5) Platelet Count 308 x10^3/uL (140-400) Neutrophils (%) (Auto) 94 % (31-73) H Lymphocytes (%) (Auto) 2 % (24-48) L Monocytes (%) (Auto) 3 % (0-9) Eosinophils (%) (Auto) 0 % (0-3) Basophils (%) (Auto) 0 % (0-3) Neutrophils # (Auto) 15.9 x10^3uL (1.8-7.7) H Lymphocytes # (Auto) 0.4 x10^3/uL (1.0-4.8) L Monocytes # (Auto) 0.5 x10^3/uL (0.0-1.1) Eosinophils # (Auto) 0.0 x10^3/uL (0.0-0.7) Basophils # (Auto) 0.0 x10^3/uL (0.0-0.2) Segmented Neutrophils % 92 % (35-66) H Band Neutrophils % 4 % (0-9) Lymphocytes % 1 % (24-48) L Monocytes % 3 % (0-10) Platelet Estimate Adequate (ADEQUATE) Prothrombin Time 13.6 SEC (11.7-14.0) Prothrombin Time INR 1.1 (0.8-1.1) PTT 30 SEC (24-38) Gastric Fluid Occult Blood Positive (NEG) Sodium Level 138 mmol/L (136-145) Potassium Level 4.2 mmol/L (3.5-5.1) Chloride Level 96 mmol/L (98-107) L Carbon Dioxide Level 29 mmol/L (21-32) Anion Gap 13 (6-14) Blood Urea Nitrogen 25 mg/dL (8-26) Creatinine 0.8 mg/dL (0.7-1.3) Estimated GFR (Cockcroft-Gault) 98.3 Glucose Level 126 mg/dL (70-99) H Calcium Level 10.1 mg/dL (8.5-10.1) Total Bilirubin 0.5 mg/dL (0.2-1.0) Direct Bilirubin 0.2 mg/dL (0.0-0.2) Aspartate Amino Transferase (AST) 22 U/L (15-37) Alanine Aminotransferase (ALT) 17 U/L (16-63) Alkaline Phosphatase 111 U/L (46-116) Troponin I Quantitative < 0.017 ng/mL (0.000-0.055) Total Protein 8.8 g/dL (6.4-8.2) H Albumin 3.8 g/dL (3.4-5.0) Lipase 96 U/L (73-393) Laboratory Tests 12/31/17 16:32 Laboratory Tests 12/31/17 17:30 EKG EKG No STEMI Interpretation Time: 18:05 Radiology/Procedures Radiology/Procedures Findings: Evaluation of enteric structures may be limited by lack of oral contrast. Liver, spleen, pancreas, and bilateral adrenal glands are unremarkable. Gallbladder is suboptimally visualized, but grossly unremarkable. Bilateral kidneys enhance symmetrically. Rectum is distended by formed stool with diameter of 8.5 cm. There is evidence of dependent dense material within the posterior urinary bladder lumen with larger abnormality could measure up to 10 mm; this could represent bladder stones. There may be a small amount of free fluid present in the pelvis. No free air is identified. A gastrostomy tube is seen. There are dilated small bowel loops measuring up to 4 cm in diameter. There is appears to be a whirling of bowel and vasculature in the right upper quadrant which also appears to be at the location of a small bowel transition point. There appears to be an additional transition point nearby. Consequently, findings are suspicious for internal hernia; bowel and vessels have different orientation on current examination relative to previous. Impression: 1. There is evidence of small bowel obstruction. The appearance of the bowel and mesenteric vessels in the upper abdomen are worrisome for internal hernia/closed loop obstruction. 2. Rectum is distended by formed stool. There may be additional fecal impaction at the rectum. 3. Results were called to referring physician, Dr. Dong, at 1914 Course & Med Decision Making Course & Med Decision Making Pertinent Labs and Imaging studies reviewed. (See chart for details) 16:45: Patient is seen and examined. He is nonverbal but does communicate with use of hand signals and some papers that he brought with him from the half-way. He complains primarily of abdominal pain. Standard abdominal pain workup is ordered. 19:20: Patient has been observed in the ER for several hours. He had 3 episodes of coffee-ground emesis over the ER course. No bright red blood is seen. CT scan of the abdomen pelvis was completed and concerning for closed loop bowel obstruction. I reexamined this patient. His abdomen is diffusely tender with no guarding or rebound. He has no distention of the abdomen. Attempts are made to aspirate from his gastrostomy tube but there was no return and the patient immediately has an additional episode of emesis. For concerns of aspiration, NG tube was placed per nursing staff. Minimal return of additional emesis (<100mls) was returned. I spoke to the general surgeon food production supervisor and consideration for surgery based on the CT scan read, but the patient does not have an acute surgical abdomen on examination. I also spoke to Dr. Soler GI food production supervisor, who will see the patient in the morning. HgB is stable this evening at 14. Protonix gtt and bolus ordered. Octreotide. Patient will be admitted to CVC unit. I also spoke to his primary care physician, Dr. Ivey who will primarily admit the patient. Additional medications for pain are ordered. Patient has no hx of cirrhosis, but antibiox are started empirically if the pt should require laparotomy. Dragon Disclaimer Dragon Disclaimer This electronic medical record was generated, in whole or in part, using a voice recognition dictation system. Departure Departure Referrals: SANJANA IVEY MD (PCP) GARCIA DONG DO Dec 31, 2017 17:01
[2017-12-31] MEDS ORDERED: IOHEXOL 300 MG/ML 100ML VIAL. IV ONE (17:15)
[2017-12-31] MEDS ORDERED: CONTRAST GIVEN. MC PRN (17:15)
[2017-12-31 17:17] LABS: % BANDS 4 % (0-9); % LYMPHS 1 % (24-48); % MONOS 3 % (0-10); % SEGS 92 % (35-66)
[2017-12-31 17:19] LABS: PLT ESTIMATE ADEQUATE (ADEQUATE)
[2017-12-31] MEDS ORDERED: IV NORMAL SALINE 500ML BAG 500 ML IV ONE (17:30)
[2017-12-31] MEDS ORDERED: ONDANSETRON PF 4 MG/2 ML VIAL. IV ONE (17:30)
[2017-12-31] MEDS ORDERED: fentaNYL PF VIAL 100 MCG/2 ML VIAL IV ONE ×2 (17:30→19:45)
[2017-12-31 18:12] LABS: PROTHROMBIN TIME PATIENT 13.6 SEC (11.7-14.0)
[2017-12-31 18:22] LABS: CALCIUM 10.1 mg/dL (8.5-10.1); CREATININE 0.8 mg/dL (0.7-1.3); GFR 98.3; POTASSIUM 4.2 mmol/L (3.5-5.1)
[2017-12-31 18:27] LABS: ALBUMIN 3.8 g/dL (3.4-5.0); DIRECT BILIRUBIN 0.2 mg/dL (0.0-0.2); TOTAL BILIRUBIN 0.5 mg/dL (0.2-1.0); TOTAL PROTEIN 8.8 g/dL (6.4-8.2)
[2017-12-31 18:41] LABS: GASTRIC OB PAT POSITIVE (NEG)
[2017-12-31] MEDS ORDERED: PANTOPRAZOLE IV PUSH 40 MG VIAL. IVP ONE (19:00)
[2017-12-31] MEDS ORDERED: PANTOPRAZOLE SODIUM IV DRIP 80 MG in IV NORMAL SALINE 100ML 100 ML IV ONE (19:00)
[2017-12-31] MEDS ORDERED: MORPHINE SULFATE 4 MG/ML VIAL. IV ONE (19:15)
--- NOTE | 2017-12-31 19:19 | RAD ---
CT Abdomen and Pelvis With Intravenous Contrast: History: Abdominal pain. Comparison: CT abdomen pelvis May 19, 2017. Technique: After administration of intravenous contrast, 75 mL Omnipaque-300, CT of the abdomen and pelvis was performed. Exposure: One or more of the following individualized dose reduction techniques were utilized for this examination: 1. Automated exposure control 2. Adjustment of the mA and/or kV according to patient size 3. Use of iterative reconstruction technique Findings: Evaluation of enteric structures may be limited by lack of oral contrast. Liver, spleen, pancreas, and bilateral adrenal glands are unremarkable. Gallbladder is suboptimally visualized, but grossly unremarkable. Bilateral kidneys enhance symmetrically. Rectum is distended by formed stool with diameter of 8.5 cm. There is evidence of dependent dense material within the posterior urinary bladder lumen with larger abnormality could measure up to 10 mm; this could represent bladder stones. There may be a small amount of free fluid present in the pelvis. No free air is identified. A gastrostomy tube is seen. There are dilated small bowel loops measuring up to 4 cm in diameter. There is appears to be a whirling of bowel and vasculature in the right upper quadrant which also appears to be at the location of a small bowel transition point. There appears to be an additional transition point nearby. Consequently, findings are suspicious for internal hernia; bowel and vessels have different orientation on current examination relative to previous. Impression: 1. There is evidence of small bowel obstruction. The appearance of the bowel and mesenteric vessels in the upper abdomen are worrisome for internal hernia/closed loop obstruction. 2. Rectum is distended by formed stool. There may be additional fecal impaction at the rectum. 3. Results were called to referring physician, Dr. Dong, at 1914 hours. Electronically signed by: Dorian Vu MD (12/31/2017 7:16 PM) [facility]
[2017-12-31] MEDS ORDERED: OCTREOTIDE 500 MCG in IV NORMAL SALINE 100ML 100 ML IV PRN (19:45)
[2017-12-31] MEDS ORDERED: ONDANSETRON PF 4 MG/2 ML VIAL. IV PRN (19:45)
[2017-12-31] MEDS ORDERED: cefOXitin SODIUM 2 GM in IV DEXTROSE 5% 100ML 100 ML IV ONE (20:15)
[2017-12-31 20:56] VITALS: BP 121/85
--- NOTE | 2017-12-31 21:01 | PDOC2 ---
CONSULT Date of Consult Date of Consult DATE: 12/31/17 TIME: 20:55 Reason for Consult Reason for Consult: SBO Referring Physician Referring Physician: Iker Identification/Chief Complaint Chief Complaint N/V Source Source: Chart review, Patient History of Present Illness Reason for Visit: 62 yo M admitted from care home secondary to n/V. He is seen in ER. He has just had NGT placed. He is awake and alert and nods in response to questions but is non verbal. He currently denies N/V. Does report some abd pain. Past Medical History Cardiovascular: HTN CENTRAL NERVOUS SYSTEM: CVA GI: GERD Rheumatologic: Gout Past Surgical History Past Surgical History: Other (Previous history of G-tube placement, and then subsequent G-tube replacement), No pertinent history Family History Family History: No Significant Social History ALCOHOL: none Drugs: None Current Medications Current Medications Current Medications Iohexol (Omnipaque 300 Mg/ml) 75 ml 1X ONCE IV Last administered on at 17:15; Start 12/31/17 at 17:15; Stop 12/31/17 at 17:16; Status DC Info (CONTRAST GIVEN -- Rx MONITORING) 1 each PRN DAILY PRN MC SEE COMMENTS; Start 12/31/17 at 17:15; Stop 01/02/18 at 17:14 Sodium Chloride 500 ml @ 500 mls/hr 1X ONCE IV Last administered on at 17:49; Start 12/31/17 at 17:30; Stop 12/31/17 at 18:29; Status DC Fentanyl Citrate (Fentanyl 2ml Vial) 50 mcg 1X ONCE IV Last administered on at 17:50; Start 12/31/17 at 17:30; Stop 12/31/17 at 17:31; Status DC Ondansetron HCl (Zofran) 4 mg 1X ONCE IV Last administered on 12/31/17at 17:50 ; Start 12/31/17 at 17:30; Stop 12/31/17 at 17:31; Status DC Pantoprazole Sodium (PROTONIX VIAL for IV PUSH) 80 mg 1X ONCE IVP Last administered on 12/31/17at 19:06; Start 12/31/17 at 19:00; Stop 12/31/17 at 19 :01; Status DC Pantoprazole Sodium 80 mg/ Sodium Chloride 100 ml @ 10 mls/hr 1X ONCE IV Last administered on 12/31/17at 19:06; Start 12/31/17 at 19:00; Stop 01/01/18 at 04:59 Morphine Sulfate (Morphine Sulfate) 4 mg 1X ONCE IV ; Start 12/31/17 at 19:15 ; Stop 12/31/17 at 19:16; Status DC Fentanyl Citrate (Fentanyl 2ml Vial) 75 mcg 1X ONCE IV Last administered on at 19:37; Start 12/31/17 at 19:45; Stop 12/31/17 at 19:46; Status DC Ondansetron HCl (Zofran) 4 mg PRN Q8HRS PRN IV NAUSEA/VOMITING; Start at 19:45; Stop 01/01/18 at 19:44 Morphine Sulfate (Morphine Sulfate) 4 mg PRN Q2HR PRN IV PAIN; Start 12/31/17 at 19:45; Stop 01/01/18 at 19:44 Sodium Chloride 1,000 ml @ 125 mls/hr Q8H IV ; Start 12/31/17 at 19:45; Stop 01/01/18 at 19:44 Octreotide Acetate 500 mcg/ Sodium Chloride 101 ml @ 5.05 mls/hr CONT PRN IV SEE I/O RECORD Last administered on 12/31/17at 20:12; Start 12/31/17 at 19:45 Cefoxitin Sodium 2 gm/Dextrose 100 ml @ 200 mls/hr Q8HRS IV ; Start 12/31/17 at 22:00; Status UNV Metronidazole 100 ml @ 100 mls/hr Q8HRS IV ; Start 12/31/17 at 22:00; Status UNV Metronidazole 100 ml @ 100 mls/hr 1X ONCE IV ; Start 12/31/17 at 20:15; Stop 12/31/17 at 21:14 Cefoxitin Sodium 2 gm/Dextrose 100 ml @ 200 mls/hr 1X ONCE IV Last administered on 12/31/17at 20:12; Start 12/31/17 at 20:15; Stop 12/31/17 at 20 :44; Status DC Active Scripts Active Sertraline Hcl 50 Mg Tablet 50 Mg PO DAILY 30 Days Flagyl (Metronidazole) 500 Mg Tablet 500 Mg PEG Q12HR 8 Days Cefpodoxime Proxetil 100 Mg/5 Ml Susp.recon 200 Mg PEG Q12HR 7 Days Milk Of Magnesia (Magnesium Hydroxide) 400 Mg/5 Ml Oral.susp 2,400 Mg PO PRN Q12HR PRN Carbidopa-Levodopa 25-100 Tab (Carbidopa/Levodopa) 1 Each Tablet 2 Tab PO [id number] Aspirin 325 Mg Tablet 325 Mg PO [id number] Reported Tylenol (Acetaminophen) 325 Mg Tablet 2 Tab PO PRN Q6HRS PRN Calcium Carbonate 500 Mg Tablet 500 Mg PO PRN Q3HRS PRN Simvastatin 10 Mg Tablet 0.5 Tab PO QHS Senokot-S Tablet (Sennosides/Docusate Sodium) 1 Each Tablet 1 Tab PO BID Saline Nasal [place] (Sodium Chloride) 30 Ml [place] 1 [place] NS PRN Q1HR PRN Protonix (Pantoprazole Sodium) 40 Mg Tablet.dr 1 Tab PO DAILY Alum-Mag Hydroxide-Simeth Liq (Mag Hydrox/Al Hydrox/Simeth) 360 Ml Oral.susp 30 Ml PO PRN Q3HRS PRN Loratadine 10 Mg Tablet 1 Tab PO DAILY Flonase Allergy Relief (Fluticasone Propionate) 9.9 Ml [place].susp 1 Sprays NS BID Laxative Suppository (Bisacodyl) 10 Mg Supp.rect 10 Mg RC PRN DAILY PRN Ambien (Zolpidem Tartrate) 5 Mg Tablet 1 Tab PO QHS Allopurinol 100 Mg Tablet 1 Tab PO DAILY Allergies Allergies: Coded Allergies: Beef Containing Products (Verified Adverse Reaction, Intermediate, 04/18/17) Unknown reaction/allergy. Beef is listed on patient's paperwork from [employer] as an allergy. Possibly d/t patient's swallowing ability. ROS Review of System unobtainable Physical Exam General: Alert, Cooperative, No acute distress HEENT: Atraumatic Lungs: Normal air movement Abdomen: Soft, Other (G-tube in place, some distention, NTTP) Extremities: Other (contractures) Skin: No rashes, No breakdown Psych/Mental Status: Mental status NL, Mood NL Vitals VITALS Vital Signs Date Time Temp Pulse Resp B/P (MAP) Pulse Ox O2 Delivery O2 Flow Rate FiO2 12/31/17 20:02 88 22 99/66 (77) 92 Nasal Cannula 5.0 12/31/17 16:21 99.7 99.7 Labs Labs Laboratory Tests Test 12/31/17 16:32 12/31/17 17:30 White Blood Count 16.8 x10^3/uL (4.0-11.0) Red Blood Count 4.48 x10^6/uL (4.30-5.70) Hemoglobin 14.1 g/dL (13.0-17.5) Hematocrit 41.0 % (39.0-53.0) Mean Corpuscular Volume 91 fL (79-100) Mean Corpuscular Hemoglobin 32 pg (25-35) Mean Corpuscular Hemoglobin Concent 35 g/dL (31-37) Red Cell Distribution Width 13.7 % (11.5-14.5) Platelet Count 308 x10^3/uL (140-400) Neutrophils (%) (Auto) 94 % (31-73) Lymphocytes (%) (Auto) 2 % (24-48) Monocytes (%) (Auto) 3 % (0-9) Eosinophils (%) (Auto) 0 % (0-3) Basophils (%) (Auto) 0 % (0-3) Neutrophils # (Auto) 15.9 x10^3uL (1.8-7.7) Lymphocytes # (Auto) 0.4 x10^3/uL (1.0-4.8) Monocytes # (Auto) 0.5 x10^3/uL (0.0-1.1) Eosinophils # (Auto) 0.0 x10^3/uL (0.0-0.7) Basophils # (Auto) 0.0 x10^3/uL (0.0-0.2) Segmented Neutrophils % 92 % (35-66) Band Neutrophils % 4 % (0-9) Lymphocytes % 1 % (24-48) Monocytes % 3 % (0-10) Platelet Estimate Adequate (ADEQUATE) Prothrombin Time 13.6 SEC (11.7-14.0) Prothromb Time International Ratio 1.1 (0.8-1.1) Activated Partial Thromboplast Time 30 SEC (24-38) Gastric Fluid Occult Blood Positive (NEG) Sodium Level 138 mmol/L (136-145) Potassium Level 4.2 mmol/L (3.5-5.1) Chloride Level 96 mmol/L (98-107) Carbon Dioxide Level 29 mmol/L (21-32) Anion Gap 13 (6-14) Blood Urea Nitrogen 25 mg/dL (8-26) Creatinine 0.8 mg/dL (0.7-1.3) Estimated GFR (Cockcroft-Gault) 98.3 Glucose Level 126 mg/dL (70-99) Calcium Level 10.1 mg/dL (8.5-10.1) Total Bilirubin 0.5 mg/dL (0.2-1.0) Direct Bilirubin 0.2 mg/dL (0.0-0.2) Aspartate Amino Transf (AST/SGOT) 22 U/L (15-37) Alanine Aminotransferase (ALT/SGPT) 17 U/L (16-63) Alkaline Phosphatase 111 U/L (46-116) Troponin I Quantitative < 0.017 ng/mL (0.000-0.055) Total Protein 8.8 g/dL (6.4-8.2) Albumin 3.8 g/dL (3.4-5.0) Lipase 96 U/L (73-393) Laboratory Tests Test 12/31/17 16:32 12/31/17 17:30 White Blood Count 16.8 x10^3/uL (4.0-11.0) Red Blood Count 4.48 x10^6/uL (4.30-5.70) Hemoglobin 14.1 g/dL (13.0-17.5) Hematocrit 41.0 % (39.0-53.0) Mean Corpuscular Volume 91 fL (79-100) Mean Corpuscular Hemoglobin 32 pg (25-35) Mean Corpuscular Hemoglobin Concent 35 g/dL (31-37) Red Cell Distribution Width 13.7 % (11.5-14.5) Platelet Count 308 x10^3/uL (140-400) Neutrophils (%) (Auto) 94 % (31-73) Lymphocytes (%) (Auto) 2 % (24-48) Monocytes (%) (Auto) 3 % (0-9) Eosinophils (%) (Auto) 0 % (0-3) Basophils (%) (Auto) 0 % (0-3) Neutrophils # (Auto) 15.9 x10^3uL (1.8-7.7) Lymphocytes # (Auto) 0.4 x10^3/uL (1.0-4.8) Monocytes # (Auto) 0.5 x10^3/uL (0.0-1.1) Eosinophils # (Auto) 0.0 x10^3/uL (0.0-0.7) Basophils # (Auto) 0.0 x10^3/uL (0.0-0.2) Segmented Neutrophils % 92 % (35-66) Band Neutrophils % 4 % (0-9) Lymphocytes % 1 % (24-48) Monocytes % 3 % (0-10) Platelet Estimate Adequate (ADEQUATE) Prothrombin Time 13.6 SEC (11.7-14.0) Prothromb Time International Ratio 1.1 (0.8-1.1) Activated Partial Thromboplast Time 30 SEC (24-38) Gastric Fluid Occult Blood Positive (NEG) Sodium Level 138 mmol/L (136-145) Potassium Level 4.2 mmol/L (3.5-5.1) Chloride Level 96 mmol/L (98-107) Carbon Dioxide Level 29 mmol/L (21-32) Anion Gap 13 (6-14) Blood Urea Nitrogen 25 mg/dL (8-26) Creatinine 0.8 mg/dL (0.7-1.3) Estimated GFR (Cockcroft-Gault) 98.3 Glucose Level 126 mg/dL (70-99) Calcium Level 10.1 mg/dL (8.5-10.1) Total Bilirubin 0.5 mg/dL (0.2-1.0) Direct Bilirubin 0.2 mg/dL (0.0-0.2) Aspartate Amino Transf (AST/SGOT) 22 U/L (15-37) Alanine Aminotransferase (ALT/SGPT) 17 U/L (16-63) Alkaline Phosphatase 111 U/L (46-116) Troponin I Quantitative < 0.017 ng/mL (0.000-0.055) Total Protein 8.8 g/dL (6.4-8.2) Albumin 3.8 g/dL (3.4-5.0) Lipase 96 U/L (73-393) Images Images Ct c/w SBO, possible volvulus, but no obvious bowel compromise Assessment/Plan Assessment/Plan SBO agree with NGT and IVF resuscitation will consider SBFT if not improved may ultimately need surgical intervention, but will be poor surgical candidate given history and also previous peritonitis secondary to inadvertent G-tube removal Thanks for consult! JLUIS CHEN MD Dec 31, 2017 21:01
--- NOTE | 2017-12-31 21:31 | RAD ---
History: NG tube placement. Comparison: CT abdomen pelvis earlier December 31, 2017. Findings: AP supine abdomen radiograph. Dilated small bowel loops are again seen measuring 4 cm. Esophagogastric tube is present with tip projecting at the body of the stomach. Gastrostomy tube is also seen. Impression: 1. Esophagogastric tube is in place with tip projecting at the body of stomach. 2. Indwelling gastrostomy tube. 3. Persistent small bowel obstruction. Electronically signed by: Dorian Vu MD (12/31/2017 9:28 PM) [facility]
[2017-12-31] MEDS ORDERED: GABA-585 PEG (22:42)
[2017-12-31] MEDS ORDERED: MAGN400O7 PEG (22:42)
[2017-12-31] MEDS ORDERED: SODI30SP NS (22:42)
[2017-12-31] MEDS ORDERED: SERT100T PEG (22:42)
[2017-12-31] MEDS ORDERED: CARB1TAB2 PEG (22:42)
[2017-12-31] MEDS ORDERED: SIMV10TA3 PEG (22:42)
[2017-12-31] MEDS ORDERED: ACET650S PEG (22:42)
[2017-12-31] MEDS ORDERED: TRAZ-86 PEG (22:42)
[2017-12-31] MEDS ORDERED: CALC300T5 PEG (22:42)
[2017-12-31] MEDS ORDERED: POLY119P19 PEG (22:42)
[2017-12-31] MEDS ORDERED: BACL10TA PEG (22:42)
[2017-12-31] MEDS ORDERED: MAGN250T9 PEG (22:42)
[2017-12-31] MEDS ORDERED: OMEP20TA8 PEG (22:42)
[2017-12-31] MEDS: IV NORMAL SALINE 1000ML BAG 1,000 ML IV SCH (23:11)
[2017-12-31 23:26] VITALS: BP 92/59
[2018-01-01 00:01] LABS: HEMATOCRIT 40.7 % (39.0-53.0); HEMOGLOBIN 14.1 g/dL (13.0-17.5); RED BLOOD COUNT 4.47 x10^6/uL (4.30-5.70); RED CELL DISTRIBUTION WIDTH 13.7 % (11.5-14.5); WHITE BLOOD COUNT 13.4 x10^3/uL (4.0-11.0)
--- NOTE | 2018-01-01 01:29 | EKG ---
[facility] [address] [place] [address] Test Date: 2017-12-31 Test Time: 18:04:06 Pat Name: SINAI PADGETT Department: Room: 203 1 Gender: M Keeper Helper: : [id number] Requested By: GARCIA GARCIA Order Number: [id number] Reading MD: Aric Oswald MD Measurements Intervals [place] Rate: 89 P: 90 DE: 172 QRS: 27 QRSD: 68 T: 49 QT: 356 QTc: 434 Interpretive Statements SINUS RHYTHM Electronically Signed On 01-02-2018 9:55:05 CDT by Aric Oswald MD
[2018-01-01] MEDS ORDERED: PANTOPRAZOLE SODIUM IV DRIP 80 MG in IV NORMAL SALINE 100ML 100 ML IV SCH (03:30)
[2018-01-01 03:57] VITALS: BP 96/62
[2018-01-01 04:33] LABS: BASO % 0 % (0-3); EOS % 0 % (0-3); LYMPH # 0.5 x10^3/uL (1.0-4.8); LYMPH % 6 % (24-48); MEAN CORPUSCULAR HEMOGLOBIN 31 pg (25-35); MEAN CORPUSCULAR HGB CONC 34 g/dL (31-37); MEAN CORPUSCULAR VOLUME 91 fL (79-100); MONO # 0.7 x10^3/uL (0.0-1.1); MONO % 7 % (0-9); NEUT # 8.5 x10^3uL (1.8-7.7); NEUT % 87 % (31-73); PLATELET COUNT 241 x10^3/uL (140-400); RED BLOOD COUNT 4.16 x10^6/uL (4.30-5.70); RED CELL DISTRIBUTION WIDTH 13.6 % (11.5-14.5); WHITE BLOOD COUNT 9.7 x10^3/uL (4.0-11.0)
[2018-01-01 04:51] LABS: CALCIUM 9.3 mg/dL (8.5-10.1); CREATININE 0.8 mg/dL (0.7-1.3); GFR 98.3; POTASSIUM 4.3 mmol/L (3.5-5.1)
[2018-01-01] MEDS: cefOXitin SODIUM 2 GM in IV DEXTROSE 5% 100ML 100 ML IV SCH ×3 (06:46→20:34)
[2018-01-01 07:15] VITALS: BP 84/61
[2018-01-01] MEDS: MORPHINE SULFATE 4 MG/ML VIAL. IV PRN ×2 (07:49→13:07)
[2018-01-01] MEDS: IV NORMAL SALINE 1000ML BAG 1,000 ML IV SCH ×2 (07:49→11:45)
[2018-01-01] MEDS ORDERED: BISACODYL 10 MG SUPP.RECT. PR ONE (08:30)
[2018-01-01 08:37] LABS: HEMATOCRIT 36.6 % (39.0-53.0); HEMOGLOBIN 12.4 g/dL (13.0-17.5); RED BLOOD COUNT 3.99 x10^6/uL (4.30-5.70); RED CELL DISTRIBUTION WIDTH 13.9 % (11.5-14.5); WHITE BLOOD COUNT 6.6 x10^3/uL (4.0-11.0)
--- NOTE | 2018-01-01 09:04 | PDOC2 ---
GI CONSULT Reason For Consult: GI Bleed HPI: HPI: 62 y/o male who we have seen in the past. H/o CVA and corticobulbar degeneration w/ aphasia and dysphagia, s/p surgical G tube placement earlier this year, then complication w/ intra-abdominal abscess requiring drainage, then G tube replacement. Per chart, brought to ER from [place] last night w/ abd pain and vomiting, some discussion of coffee-ground emesis. CT showed SBO w/ concern for internal hernia/closed loop, also noted distended rectum with stool. Surgery is following - has NG tube to suction (~100cc dark watery material this morning). Was also given suppository. Hgb was 14.1 in ER, now 13. H/o anemia on review of past labs - Hgb 9-11 range. BUN was 25, now 29. Gastric occult was positive. On Protonix and octreotide drips. Home meds include omeprazole and ASA. History is limited and he is non-verbal - indicates has abd pain. PMH: PMH: per HPI, plus Parkinson's, GERD, HLD, gout FH: Family History: Other (difficult to obtain) Social History: Smoke: No ALCOHOL: none ROS: Refer to HPI. Vitals: Vitals: Vital Signs Date Time Temp Pulse Resp B/P (MAP) Pulse Ox O2 Delivery O2 Flow Rate FiO2 01/01/18 07:15 98.0 82 16 84/61 (69) 99 Nasal Cannula 5.0 98.0 Labs: Labs: Laboratory Tests Test 12/31/17 16:32 12/31/17 17:30 12/31/17 23:55 01/01/18 04:00 White Blood Count 16.8 x10^3/uL (4.0-11.0) 13.4 x10^3/uL (4.0-11.0) 9.7 x10^3/uL (4.0-11.0) Red Blood Count 4.48 x10^6/uL (4.30-5.70) 4.47 x10^6/uL (4.30-5.70) 4.16 x10^6/uL (4.30-5.70) Hemoglobin 14.1 g/dL (13.0-17.5) 14.1 g/dL (13.0-17.5) 13.0 g/dL (13.0-17.5) Hematocrit 41.0 % (39.0-53.0) 40.7 % (39.0-53.0) 38.0 % (39.0-53.0) Mean Corpuscular Volume 91 fL (79-100) 91 fL (79-100) 91 fL (79-100) Mean Corpuscular Hemoglobin 32 pg (25-35) 32 pg (25-35) 31 pg (25-35) Mean Corpuscular Hemoglobin Concent 35 g/dL (31-37) 35 g/dL (31-37) 34 g/dL (31-37) Red Cell Distribution Width 13.7 % (11.5-14.5) 13.7 % (11.5-14.5) 13.6 % (11.5-14.5) Platelet Count 308 x10^3/uL (140-400) 266 x10^3/uL (140-400) 241 x10^3/uL (140-400) Neutrophils (%) (Auto) 94 % (31-73) 87 % (31-73) Lymphocytes (%) (Auto) 2 % (24-48) 6 % (24-48) Monocytes (%) (Auto) 3 % (0-9) 7 % (0-9) Eosinophils (%) (Auto) 0 % (0-3) 0 % (0-3) Basophils (%) (Auto) 0 % (0-3) 0 % (0-3) Neutrophils # (Auto) 15.9 x10^3uL (1.8-7.7) 8.5 x10^3uL (1.8-7.7) Lymphocytes # (Auto) 0.4 x10^3/uL (1.0-4.8) 0.5 x10^3/uL (1.0-4.8) Monocytes # (Auto) 0.5 x10^3/uL (0.0-1.1) 0.7 x10^3/uL (0.0-1.1) Eosinophils # (Auto) 0.0 x10^3/uL (0.0-0.7) 0.0 x10^3/uL (0.0-0.7) Basophils # (Auto) 0.0 x10^3/uL (0.0-0.2) 0.0 x10^3/uL (0.0-0.2) Segmented Neutrophils % 92 % (35-66) Band Neutrophils % 4 % (0-9) Lymphocytes % 1 % (24-48) Monocytes % 3 % (0-10) Platelet Estimate Adequate (ADEQUATE) Prothrombin Time 13.6 SEC (11.7-14.0) Prothromb Time International Ratio 1.1 (0.8-1.1) Activated Partial Thromboplast Time 30 SEC (24-38) Gastric Fluid Occult Blood Positive (NEG) Sodium Level 138 mmol/L (136-145) 139 mmol/L (136-145) Potassium Level 4.2 mmol/L (3.5-5.1) 4.3 mmol/L (3.5-5.1) Chloride Level 96 mmol/L (98-107) 100 mmol/L (98-107) Carbon Dioxide Level 29 mmol/L (21-32) 31 mmol/L (21-32) Anion Gap 13 (6-14) 8 (6-14) Blood Urea Nitrogen 25 mg/dL (8-26) 29 mg/dL (8-26) Creatinine 0.8 mg/dL (0.7-1.3) 0.8 mg/dL (0.7-1.3) Estimated GFR (Cockcroft-Gault) 98.3 98.3 Glucose Level 126 mg/dL (70-99) 150 mg/dL (70-99) Calcium Level 10.1 mg/dL (8.5-10.1) 9.3 mg/dL (8.5-10.1) Total Bilirubin 0.5 mg/dL (0.2-1.0) Direct Bilirubin 0.2 mg/dL (0.0-0.2) Aspartate Amino Transf (AST/SGOT) 22 U/L (15-37) Alanine Aminotransferase (ALT/SGPT) 17 U/L (16-63) Alkaline Phosphatase 111 U/L (46-116) Troponin I Quantitative < 0.017 ng/mL (0.000-0.055) Total Protein 8.8 g/dL (6.4-8.2) Albumin 3.8 g/dL (3.4-5.0) Lipase 96 U/L (73-393) Lactic Acid Level 1.0 mmol/L (0.4-2.0) Test 01/01/18 08:05 White Blood Count 6.6 x10^3/uL (4.0-11.0) Red Blood Count 3.99 x10^6/uL (4.30-5.70) Hemoglobin 12.4 g/dL (13.0-17.5) Hematocrit 36.6 % (39.0-53.0) Mean Corpuscular Volume 92 fL (79-100) Mean Corpuscular Hemoglobin 31 pg (25-35) Mean Corpuscular Hemoglobin Concent 34 g/dL (31-37) Red Cell Distribution Width 13.9 % (11.5-14.5) Platelet Count 258 x10^3/uL (140-400) Allergies: Coded Allergies: Beef Containing Products (Verified Adverse Reaction, Intermediate, 04/18/17) Unknown reaction/allergy. Beef is listed on patient's paperwork from [employer] as an allergy. Possibly d/t patient's swallowing ability. Medications: Current Medications Medications (Trade) Dose Ordered Sig/Ksenia Route PRN Reason Start Time Stop Time Status Last Admin Dose Admin Iohexol (Omnipaque 300 Mg/ml) 75 ml 1X ONCE IV 12/31/17 17:15 12/31/17 17:16 DC 12/31/17 17:15 Sodium Chloride 500 ml @ 500 mls/hr 1X ONCE IV 12/31/17 17:30 12/31/17 18:29 DC 12/31/17 17:49 Fentanyl Citrate (Fentanyl 2ml Vial) 50 mcg 1X ONCE IV 12/31/17 17:30 12/31/17 17:31 DC 12/31/17 17:50 Ondansetron HCl (Zofran) 4 mg 1X ONCE IV 12/31/17 17:30 12/31/17 17:31 DC 12/31/17 17:50 Pantoprazole Sodium (PROTONIX VIAL for IV PUSH) 80 mg 1X ONCE IVP 12/31/17 19:00 12/31/17 19:01 DC 12/31/17 19:06 Pantoprazole Sodium 80 mg/ Sodium Chloride 100 ml @ 10 mls/hr 1X ONCE IV 12/31/17 19:00 01/01/18 04:59 DC 12/31/17 19:06 Morphine Sulfate (Morphine Sulfate) 4 mg 1X ONCE IV 12/31/17 19:15 12/31/17 19:16 DC 12/31/17 21:59 Fentanyl Citrate (Fentanyl 2ml Vial) 75 mcg 1X ONCE IV 12/31/17 19:45 12/31/17 19:46 DC 12/31/17 19:37 Morphine Sulfate (Morphine Sulfate) 4 mg PRN Q2HR PRN IV PAIN 12/31/17 19:45 01/01/18 19:44 01/01/18 07:49 Sodium Chloride 1,000 ml @ 125 mls/hr Q8H IV 12/31/17 19:45 01/01/18 19:44 01/01/18 07:49 Octreotide Acetate 500 mcg/ Sodium Chloride 101 ml @ 5.05 mls/hr CONT PRN IV SEE I/O RECORD 12/31/17 19:45 12/31/17 20:12 Cefoxitin Sodium 2 gm/Dextrose 100 ml @ 200 mls/hr Q8HRS IV 01/01/18 06:00 01/01/18 06:46 Metronidazole 100 ml @ 100 mls/hr Q8HRS IV 01/01/18 06:00 01/01/18 05:42 Metronidazole 100 ml @ 100 mls/hr 1X ONCE IV 12/31/17 20:15 12/31/17 21:14 DC 12/31/17 21:59 Cefoxitin Sodium 2 gm/Dextrose 100 ml @ 200 mls/hr 1X ONCE IV 12/31/17 20:15 12/31/17 20:44 DC 12/31/17 20:12 Pantoprazole Sodium 80 mg/ Sodium Chloride 100 ml @ 10 mls/hr Q10H IV 01/01/18 03:30 01/01/18 03:32 Imaging: Imaging: CT A/P Impression: 1. There is evidence of small bowel obstruction. The appearance of the bowel and mesenteric vessels in the upper abdomen are worrisome for internal hernia/ closed loop obstruction. 2. Rectum is distended by formed stool. There may be additional fecal impaction at the rectum. KUB Impression: 1. Esophagogastric tube is in place with tip projecting at the body of stomach. 2. Indwelling gastrostomy tube. 3. Persistent small bowel obstruction. PE: GEN: NAD - watching tv, moans when I press mute on the remote, stops moaning when I "unmute" HEENT: Atraumatic, PERRL LUNGS: NC 5L HEART: RRR ABD: quiet, tender, +G tube EXTREMITY: No edema SKIN: No rashes, no jaundice NEURO/PSYCH: awake/alert, contractures A/P: A/P: Abd pain, coffee-ground emesis Abnormal CT w/ SBO, possible fecal impaction S/p surgical G tube placement 04/2017 -- Reviewed w/ Dr. Soler - will change PPI from drip to IV push QD. Okay per GI to stop octreotide. Await response to suppository. Follow surgical recs re: SBO, NG tube, etc. ALAYNA RAMIREZ Jan 01, 2018 09:04
--- NOTE | 2018-01-01 10:35 | HP ---
ADMIT DATE: 12/31/2017 CHIEF COMPLAINT AND HISTORY OF PRESENT ILLNESS: This 62-year-old white male is known to me from the retirement followup. The patient had the onset of coffee-ground emesis at the retirement with abdominal pain on the day of admission, was transferred to the Emergency Room, where he was found to have heme-positive emesis, described by the ER of at least 3 times of 400 mL each upon presentation. Hemoglobin has maintained relatively stable going from 14.1 on admission to 13 this morning. He does have an NG tube in place at this point in time with dark gastric drainage. He was admitted for GI bleed, also found on CT scanning to have a small-bowel obstruction with the appearance of the bowel and mesenteric vessels in the upper abdomen, worrisome for an internal hernia or closed loop obstruction. He was also found to have a lot of stool in the rectum. PAST MEDICAL HISTORY: Remarkable for corticobasal degeneration, aphasia, dysphagia, flexion contractures of the extremities, constipation, CVA. PAST SURGICAL HISTORY: He has had prior G-tube placement. MEDICATIONS: Brought with the patient, listed on the nursing notes and have been addressed. ALLERGIES: He is allergic to BEEF-CONTAINING PRODUCTS, per history. SOCIAL HISTORY: He is nonsmoker, nondrinker, does not abuse drugs, is a retirement resident, has a family, but I believe they are somewhat on the estranged side and not really involved with his day to day. FAMILY HISTORY: Noncontributory. REVIEW OF SYSTEMS: Unobtainable due to his communication difficulties of being unable to speak. He does have a word and letter board and I am going to ask speech therapy and I have discussed with nursing trying to figure out some way to get him the tools that he needs to be able to communicate with us. PHYSICAL EXAMINATION: GENERAL: He is a well-developed, well-nourished, chronically appearing white male, in no acute distress. VITAL SIGNS: Stable. He is afebrile. HEAD, EYES, EARS, NOSE AND THROAT: Unremarkable. NECK: Supple, without adenopathy or thyromegaly. CHEST: Reveals bilateral rhonchi. HEART: Regular rate and rhythm without S3, S4 or murmur. ABDOMEN: Mildly tender to palpation diffusely, but no rebound or guarding, hepatosplenomegaly or masses noted. EXTREMITIES: Without cyanosis, clubbing, edema. He does have contractures globally. NEUROLOGIC: Remarkable for chronic changes. LABORATORY DATA: Initial white count is 16,800. IMPRESSION: Hematemesis with small-bowel obstruction as discussed above in a patient with multiple medical problems, primarily being his chronic degenerative neurological disorder. PLAN: The patient does have an NG tube placed. He is on IV fluids at this point in time. Surgery has been asked to see him in consultation. The patient will be monitored, managed and treated appropriately. SANJANA HALL MD DR: PAULA/hoda JOB#: [id number] / [id number]
[2018-01-01 11:21] VITALS: BP 99/58
[2018-01-01 12:18] LABS: HEMATOCRIT 34.7 % (39.0-53.0); HEMOGLOBIN 11.9 g/dL (13.0-17.5); RED BLOOD COUNT 3.79 x10^6/uL (4.30-5.70); RED CELL DISTRIBUTION WIDTH 13.7 % (11.5-14.5); WHITE BLOOD COUNT 5.2 x10^3/uL (4.0-11.0)
[2018-01-01 14:55] VITALS: BP 123/76
[2018-01-01] MEDS: IV 1/2 NORMAL SALINE 1,000 ML IV SCH (15:36)
[2018-01-01 19:56] VITALS: BP 109/62
[2018-01-01 23:31] VITALS: BP 107/62
[2018-01-02 03:58] VITALS: BP 91/55
[2018-01-02] MEDS: IV 1/2 NORMAL SALINE 1,000 ML IV SCH ×2 (05:56→11:10)
[2018-01-02] MEDS: cefOXitin SODIUM 2 GM in IV DEXTROSE 5% 100ML 100 ML IV SCH ×3 (05:56→22:00)
[2018-01-02 07:00] VITALS: BP 100/61
--- NOTE | 2018-01-02 08:45 | PDOC ---
SURGICAL PROGRESS NOTE Subjective Patient awake and alert. Denies pain or nausea. Had BM yesterday Vital Signs Vital Signs Date Time Temp Pulse Resp B/P (MAP) Pulse Ox O2 Delivery O2 Flow Rate FiO2 01/02/18 07:00 97.8 65 22 100/61 (74) 100 Room Air 97.8 01/02/18 03:58 4.0 I&O Intake and Output 01/02/18 07:00 Intake Total 0 ml Output Total 350 ml Balance -350 ml Intake Oral 0 ml Gastric Drainage Total 350 ml # Voids 4 # Bowel Movements 2 PATIENT HAS A MCDONALD: Yes General: Alert, Cooperative, No acute distress Abdomen: Normal bowel sounds, Soft, No tenderness, Other (NGT with minimal output. G tube in place) Labs Laboratory Tests Test 12/31/17 16:32 12/31/17 17:30 12/31/17 23:00 12/31/17 23:55 White Blood Count 16.8 x10^3/uL (4.0-11.0) 13.4 x10^3/uL (4.0-11.0) Red Blood Count 4.48 x10^6/uL (4.30-5.70) 4.47 x10^6/uL (4.30-5.70) Hemoglobin 14.1 g/dL (13.0-17.5) 14.1 g/dL (13.0-17.5) Hematocrit 41.0 % (39.0-53.0) 40.7 % (39.0-53.0) Mean Corpuscular Volume 91 fL (79-100) 91 fL (79-100) Mean Corpuscular Hemoglobin 32 pg (25-35) 32 pg (25-35) Mean Corpuscular Hemoglobin Concent 35 g/dL (31-37) 35 g/dL (31-37) Red Cell Distribution Width 13.7 % (11.5-14.5) 13.7 % (11.5-14.5) Platelet Count 308 x10^3/uL (140-400) 266 x10^3/uL (140-400) Neutrophils (%) (Auto) 94 % (31-73) Lymphocytes (%) (Auto) 2 % (24-48) Monocytes (%) (Auto) 3 % (0-9) Eosinophils (%) (Auto) 0 % (0-3) Basophils (%) (Auto) 0 % (0-3) Neutrophils # (Auto) 15.9 x10^3uL (1.8-7.7) Lymphocytes # (Auto) 0.4 x10^3/uL (1.0-4.8) Monocytes # (Auto) 0.5 x10^3/uL (0.0-1.1) Eosinophils # (Auto) 0.0 x10^3/uL (0.0-0.7) Basophils # (Auto) 0.0 x10^3/uL (0.0-0.2) Segmented Neutrophils % 92 % (35-66) Band Neutrophils % 4 % (0-9) Lymphocytes % 1 % (24-48) Monocytes % 3 % (0-10) Platelet Estimate Adequate (ADEQUATE) Prothrombin Time 13.6 SEC (11.7-14.0) Prothromb Time International Ratio 1.1 (0.8-1.1) Activated Partial Thromboplast Time 30 SEC (24-38) Gastric Fluid Occult Blood Positive (NEG) Sodium Level 138 mmol/L (136-145) Potassium Level 4.2 mmol/L (3.5-5.1) Chloride Level 96 mmol/L (98-107) Carbon Dioxide Level 29 mmol/L (21-32) Anion Gap 13 (6-14) Blood Urea Nitrogen 25 mg/dL (8-26) Creatinine 0.8 mg/dL (0.7-1.3) Estimated GFR (Cockcroft-Gault) 98.3 Glucose Level 126 mg/dL (70-99) Calcium Level 10.1 mg/dL (8.5-10.1) Total Bilirubin 0.5 mg/dL (0.2-1.0) Direct Bilirubin 0.2 mg/dL (0.0-0.2) Aspartate Amino Transf (AST/SGOT) 22 U/L (15-37) Alanine Aminotransferase (ALT/SGPT) 17 U/L (16-63) Alkaline Phosphatase 111 U/L (46-116) Troponin I Quantitative < 0.017 ng/mL (0.000-0.055) Total Protein 8.8 g/dL (6.4-8.2) Albumin 3.8 g/dL (3.4-5.0) Lipase 96 U/L (73-393) Nasal Screen MRSA (PCR) Positive (Negative) Lactic Acid Level 1.0 mmol/L (0.4-2.0) Test 01/01/18 04:00 01/01/18 08:05 01/01/18 11:55 White Blood Count 9.7 x10^3/uL (4.0-11.0) 6.6 x10^3/uL (4.0-11.0) 5.2 x10^3/uL (4.0-11.0) Red Blood Count 4.16 x10^6/uL (4.30-5.70) 3.99 x10^6/uL (4.30-5.70) 3.79 x10^6/uL (4.30-5.70) Hemoglobin 13.0 g/dL (13.0-17.5) 12.4 g/dL (13.0-17.5) 11.9 g/dL (13.0-17.5) Hematocrit 38.0 % (39.0-53.0) 36.6 % (39.0-53.0) 34.7 % (39.0-53.0) Mean Corpuscular Volume 91 fL (79-100) 92 fL (79-100) 92 fL (79-100) Mean Corpuscular Hemoglobin 31 pg (25-35) 31 pg (25-35) 31 pg (25-35) Mean Corpuscular Hemoglobin Concent 34 g/dL (31-37) 34 g/dL (31-37) 34 g/dL (31-37) Red Cell Distribution Width 13.6 % (11.5-14.5) 13.9 % (11.5-14.5) 13.7 % (11.5-14.5) Platelet Count 241 x10^3/uL (140-400) 258 x10^3/uL (140-400) 243 x10^3/uL (140-400) Neutrophils (%) (Auto) 87 % (31-73) Lymphocytes (%) (Auto) 6 % (24-48) Monocytes (%) (Auto) 7 % (0-9) Eosinophils (%) (Auto) 0 % (0-3) Basophils (%) (Auto) 0 % (0-3) Neutrophils # (Auto) 8.5 x10^3uL (1.8-7.7) Lymphocytes # (Auto) 0.5 x10^3/uL (1.0-4.8) Monocytes # (Auto) 0.7 x10^3/uL (0.0-1.1) Eosinophils # (Auto) 0.0 x10^3/uL (0.0-0.7) Basophils # (Auto) 0.0 x10^3/uL (0.0-0.2) Sodium Level 139 mmol/L (136-145) Potassium Level 4.3 mmol/L (3.5-5.1) Chloride Level 100 mmol/L (98-107) Carbon Dioxide Level 31 mmol/L (21-32) Anion Gap 8 (6-14) Blood Urea Nitrogen 29 mg/dL (8-26) Creatinine 0.8 mg/dL (0.7-1.3) Estimated GFR (Cockcroft-Gault) 98.3 Glucose Level 150 mg/dL (70-99) Calcium Level 9.3 mg/dL (8.5-10.1) Laboratory Tests Test 01/01/18 11:55 White Blood Count 5.2 x10^3/uL (4.0-11.0) Red Blood Count 3.79 x10^6/uL (4.30-5.70) Hemoglobin 11.9 g/dL (13.0-17.5) Hematocrit 34.7 % (39.0-53.0) Mean Corpuscular Volume 92 fL (79-100) Mean Corpuscular Hemoglobin 31 pg (25-35) Mean Corpuscular Hemoglobin Concent 34 g/dL (31-37) Red Cell Distribution Width 13.7 % (11.5-14.5) Platelet Count 243 x10^3/uL (140-400) Assessment/Plan SBO appears to be resolving, no NGT output Will D/C NGT hold advancing diet for now. HALIMA JURADO MD Jan 02, 2018 08:45
[2018-01-02] MEDS: PANTOPRAZOLE IV PUSH 40 MG VIAL. IVP SCH (08:49)
[2018-01-02 11:00] VITALS: BP 100/63
--- NOTE | 2018-01-02 13:08 | PDOC ---
Objective: Objective: Reviewed w/ RN - plans to remove NG and transfer to regular floor. Small stool yesterday. Vital Signs: Vital Signs Date Time Temp Pulse Resp B/P (MAP) Pulse Ox O2 Delivery O2 Flow Rate FiO2 01/02/18 11:00 98.1 78 20 100/63 (75) 98 Room Air 98.1 01/02/18 08:00 4.0 PE: GEN: NAD LUNGS: CTAB HEART: RRR ABD: non-tender, quiet NEURO/PSYCH: nonverbal - nods appropriately A/P: Abd pain, coffee-ground emesis - SBO and fecal impaction on CT G tube in place -- Plans to remove NG, will follow, continue per surgery. Monitor Hgb, continue PPI. Might do well w/ chronic treatment for constipation - can address after acute issues resolved. ALAYNA RAMIREZ Jan 02, 2018 13:08 PANCHO PHILLIPS MD Jan 02, 2018 13:51
[2018-01-02 15:14] VITALS: BP 118/73
[2018-01-02 19:47] VITALS: BP 128/75
[2018-01-02] MEDS: MORPHINE SULFATE 4 MG/ML VIAL. IV PRN (20:10)
--- NOTE | 2018-01-02 20:43 | PN ---
DATE: 01/02/2018 LOCATION: Room 203. SUBJECTIVE: The patient is resting quietly, awakens. He has ongoing abdominal tenderness. OBJECTIVE: VITAL SIGNS: Stable. He is afebrile. Awakens easily and alert. CHEST: Reveals clear breath sounds. HEART: Regular. ABDOMEN: Still diffusely tender without rebound or guarding. NG tube is still in place with dark drainage. LABORATORY DATA: Hemoglobin this morning is 11.9, which was compared to 12.4 yesterday. IMPRESSION: 1. Small bowel obstruction with upper gastrointestinal bleed. 2. Corticobasal degeneration. PLAN: We will continue to follow Gastroenterology and Surgery, leaned on this. Continue hydration and the patient will continue n.p.o. at this point in time obviously with NG tube. SANJANA HALL MD DR: PAULA/hoda JOB#: [id number] / [id number]
[2018-01-03] MEDS: IV 1/2 NORMAL SALINE 1,000 ML IV SCH ×3 (00:30→23:19)
[2018-01-03] MEDS: MORPHINE SULFATE 4 MG/ML VIAL. IV PRN ×2 (04:29→20:02)
[2018-01-03] MEDS: cefOXitin SODIUM 2 GM in IV DEXTROSE 5% 100ML 100 ML IV SCH ×3 (04:30→23:17)
[2018-01-03 04:42] LABS: BASO % 1 % (0-3); EOS # 0.1 x10^3/uL (0.0-0.7); EOS % 2 % (0-3); HEMATOCRIT 33.3 % (39.0-53.0); HEMOGLOBIN 11.5 g/dL (13.0-17.5); LYMPH # 1.2 x10^3/uL (1.0-4.8); LYMPH % 22 % (24-48); MEAN CORPUSCULAR HEMOGLOBIN 32 pg (25-35); MEAN CORPUSCULAR HGB CONC 35 g/dL (31-37); MEAN CORPUSCULAR VOLUME 92 fL (79-100); MONO # 0.7 x10^3/uL (0.0-1.1); MONO % 12 % (0-9); NEUT # 3.5 x10^3uL (1.8-7.7); NEUT % 63 % (31-73); PLATELET COUNT 218 x10^3/uL (140-400); RED BLOOD COUNT 3.61 x10^6/uL (4.30-5.70); RED CELL DISTRIBUTION WIDTH 13.7 % (11.5-14.5); WHITE BLOOD COUNT 5.5 x10^3/uL (4.0-11.0)
[2018-01-03 07:00] VITALS: BP 150/70
[2018-01-03] MEDS: PANTOPRAZOLE IV PUSH 40 MG VIAL. IVP SCH (08:39)
--- NOTE | 2018-01-03 08:41 | PDOC ---
SURGICAL PROGRESS NOTE Subjective Patient resting comfortably in bed easily arousable denies any pain Vital Signs Vital Signs Date Time Temp Pulse Resp B/P (MAP) Pulse Ox O2 Delivery O2 Flow Rate FiO2 01/03/18 07:00 97.7 73 18 150/70 (96) 98 Nasal Cannula 3.0 97.7 I&O Intake and Output 01/03/18 07:00 Intake Total 0 ml Balance 0 ml Intake Oral 0 ml # Voids 9 # Bowel Movements 1 PATIENT HAS A MCDONALD: No General: Alert, Cooperative, No acute distress Abdomen: Normal bowel sounds, Soft, Other (nondistended) Labs Laboratory Tests Test 01/01/18 11:55 01/03/18 04:00 White Blood Count 5.2 x10^3/uL (4.0-11.0) 5.5 x10^3/uL (4.0-11.0) Red Blood Count 3.79 x10^6/uL (4.30-5.70) 3.61 x10^6/uL (4.30-5.70) Hemoglobin 11.9 g/dL (13.0-17.5) 11.5 g/dL (13.0-17.5) Hematocrit 34.7 % (39.0-53.0) 33.3 % (39.0-53.0) Mean Corpuscular Volume 92 fL (79-100) 92 fL (79-100) Mean Corpuscular Hemoglobin 31 pg (25-35) 32 pg (25-35) Mean Corpuscular Hemoglobin Concent 34 g/dL (31-37) 35 g/dL (31-37) Red Cell Distribution Width 13.7 % (11.5-14.5) 13.7 % (11.5-14.5) Platelet Count 243 x10^3/uL (140-400) 218 x10^3/uL (140-400) Neutrophils (%) (Auto) 63 % (31-73) Lymphocytes (%) (Auto) 22 % (24-48) Monocytes (%) (Auto) 12 % (0-9) Eosinophils (%) (Auto) 2 % (0-3) Basophils (%) (Auto) 1 % (0-3) Neutrophils # (Auto) 3.5 x10^3uL (1.8-7.7) Lymphocytes # (Auto) 1.2 x10^3/uL (1.0-4.8) Monocytes # (Auto) 0.7 x10^3/uL (0.0-1.1) Eosinophils # (Auto) 0.1 x10^3/uL (0.0-0.7) Basophils # (Auto) 0.0 x10^3/uL (0.0-0.2) Laboratory Tests Test 01/03/18 04:00 White Blood Count 5.5 x10^3/uL (4.0-11.0) Red Blood Count 3.61 x10^6/uL (4.30-5.70) Hemoglobin 11.5 g/dL (13.0-17.5) Hematocrit 33.3 % (39.0-53.0) Mean Corpuscular Volume 92 fL (79-100) Mean Corpuscular Hemoglobin 32 pg (25-35) Mean Corpuscular Hemoglobin Concent 35 g/dL (31-37) Red Cell Distribution Width 13.7 % (11.5-14.5) Platelet Count 218 x10^3/uL (140-400) Neutrophils (%) (Auto) 63 % (31-73) Lymphocytes (%) (Auto) 22 % (24-48) Monocytes (%) (Auto) 12 % (0-9) Eosinophils (%) (Auto) 2 % (0-3) Basophils (%) (Auto) 1 % (0-3) Neutrophils # (Auto) 3.5 x10^3uL (1.8-7.7) Lymphocytes # (Auto) 1.2 x10^3/uL (1.0-4.8) Monocytes # (Auto) 0.7 x10^3/uL (0.0-1.1) Eosinophils # (Auto) 0.1 x10^3/uL (0.0-0.7) Basophils # (Auto) 0.0 x10^3/uL (0.0-0.2) Assessment/Plan Small bowel obstruction versus ileus tolerated removal of NG tube Console nutrition to start G-tube feedings slowly HALIMA JURADO MD Jan 03, 2018 08:41
--- NOTE | 2018-01-03 09:43 | RAD ---
BRANDON, 01/03/2018: HISTORY: Follow-up small bowel obstruction Comparison is made to a study from 12/31/2017. A gastrostomy tube remains in place. An NG tube is no longer visible. There is ongoing mild gaseous distention of small bowel loops in the upper abdomen. This may be due to partial small bowel obstruction or an ileus. There is gas and stool in the colon. There is a moderate sized collection of stool in the rectum. This was also evident on the CT study of 12/31/2017. IMPRESSION: 1. Ongoing mild gaseous distention of small bowel loops in the upper abdomen. 2. Persistent fecal impaction the rectum. Electronically signed by: Delmer Peacock MD (01/03/2018 9:39 AM) [facility]
[2018-01-03 11:00] VITALS: BP 120/74
[2018-01-03 15:00] VITALS: BP 121/74
--- NOTE | 2018-01-03 16:22 | PDOC ---
Subjective: Subjective: Pt is asleep during exam today. Spoke with RN, who stated pt has tolerated the removal of NG tube will. He will be starting PEG tube feedings soon. Objective: Vital Signs: Vital Signs Date Time Temp Pulse Resp B/P (MAP) Pulse Ox O2 Delivery O2 Flow Rate FiO2 01/03/18 11:00 98.1 73 20 120/74 (89) 98 Nasal Cannula 3.0 98.1 Labs: Laboratory Tests Test 01/03/18 04:00 White Blood Count 5.5 x10^3/uL Red Blood Count 3.61 x10^6/uL Hemoglobin 11.5 g/dL Hematocrit 33.3 % Mean Corpuscular Volume 92 fL Mean Corpuscular Hemoglobin 32 pg Mean Corpuscular Hemoglobin Concent 35 g/dL Red Cell Distribution Width 13.7 % Platelet Count 218 x10^3/uL Neutrophils (%) (Auto) 63 % Lymphocytes (%) (Auto) 22 % Monocytes (%) (Auto) 12 % Eosinophils (%) (Auto) 2 % Basophils (%) (Auto) 1 % Neutrophils # (Auto) 3.5 x10^3uL Lymphocytes # (Auto) 1.2 x10^3/uL Monocytes # (Auto) 0.7 x10^3/uL Eosinophils # (Auto) 0.1 x10^3/uL Basophils # (Auto) 0.0 x10^3/uL Current Medications Medications (Trade) Dose Ordered Sig/Ksenia Route PRN Reason Start Time Stop Time Status Last Admin Dose Admin Iohexol (Omnipaque 300 Mg/ml) 75 ml 1X ONCE IV 12/31/17 17:15 12/31/17 17:16 DC 12/31/17 17:15 Info (CONTRAST GIVEN -- Rx MONITORING) 1 each PRN DAILY PRN MC SEE COMMENTS 12/31/17 17:15 01/02/18 17:14 DC Sodium Chloride 500 ml @ 500 mls/hr 1X ONCE IV 12/31/17 17:30 12/31/17 18:29 DC 12/31/17 17:49 Fentanyl Citrate (Fentanyl 2ml Vial) 50 mcg 1X ONCE IV 12/31/17 17:30 12/31/17 17:31 DC 12/31/17 17:50 Ondansetron HCl (Zofran) 4 mg 1X ONCE IV 12/31/17 17:30 12/31/17 17:31 DC 12/31/17 17:50 Pantoprazole Sodium (PROTONIX VIAL for IV PUSH) 80 mg 1X ONCE IVP 12/31/17 19:00 12/31/17 19:01 DC 12/31/17 19:06 Pantoprazole Sodium 80 mg/ Sodium Chloride 100 ml @ 10 mls/hr 1X ONCE IV 12/31/17 19:00 01/01/18 04:59 DC 12/31/17 19:06 Morphine Sulfate (Morphine Sulfate) 4 mg 1X ONCE IV 12/31/17 19:15 12/31/17 19:16 DC 12/31/17 21:59 Fentanyl Citrate (Fentanyl 2ml Vial) 75 mcg 1X ONCE IV 12/31/17 19:45 12/31/17 19:46 DC 12/31/17 19:37 Ondansetron HCl (Zofran) 4 mg PRN Q8HRS PRN IV NAUSEA/VOMITING 12/31/17 19:45 01/01/18 19:44 DC Morphine Sulfate (Morphine Sulfate) 4 mg PRN Q2HR PRN IV PAIN 12/31/17 19:45 01/01/18 19:44 DC 01/01/18 13:07 Sodium Chloride 1,000 ml @ 125 mls/hr Q8H IV 12/31/17 19:45 01/01/18 19:44 DC 01/01/18 07:49 Octreotide Acetate 500 mcg/ Sodium Chloride 101 ml @ 5.05 mls/hr CONT PRN IV SEE I/O RECORD 12/31/17 19:45 01/01/18 14:09 DC 12/31/17 20:12 Cefoxitin Sodium 2 gm/Dextrose 100 ml @ 200 mls/hr Q8HRS IV 01/01/18 06:00 01/03/18 15:14 Metronidazole 100 ml @ 100 mls/hr Q8HRS IV 01/01/18 06:00 01/03/18 15:14 Metronidazole 100 ml @ 100 mls/hr 1X ONCE IV 12/31/17 20:15 12/31/17 21:14 DC 12/31/17 21:59 Cefoxitin Sodium 2 gm/Dextrose 100 ml @ 200 mls/hr 1X ONCE IV 12/31/17 20:15 12/31/17 20:44 DC 12/31/17 20:12 Influenza Virus Vaccine (Afluria Trivalent [id number] Syringe) 0.5 ml ONCE ONCE VAX IM 01/01/18 09:00 01/01/18 09:01 DC 01/02/18 13:42 Pantoprazole Sodium 80 mg/ Sodium Chloride 100 ml @ 10 mls/hr Q10H IV 01/01/18 03:30 01/01/18 09:37 DC 01/01/18 03:32 Morphine Sulfate (Morphine Sulfate) 4 mg PRN Q2HR PRN IV PAIN 01/01/18 08:15 01/03/18 04:29 Bisacodyl (Dulcolax Supp) 10 mg 1X ONCE SD 01/01/18 08:30 01/01/18 08:31 DC 01/01/18 10:14 Sodium Chloride 1,000 ml @ 75 mls/hr [id number] IV 01/01/18 08:30 01/03/18 04:30 Pantoprazole Sodium (PROTONIX VIAL for IV PUSH) 40 mg DAILYAC IVP 01/02/18 07:30 01/03/18 08:39 Imaging: [facility] 01/03/18 IMPRESSION: 1. Ongoing mild gaseous distention of small bowel loops in the upper abdomen. 2. Persistent fecal impaction the rectum. PE: Pt asleep during exam today A/P: Small bowel obstruction versus ileus tolerated removal of NG tube Console nutrition to start G-tube feedings slowly Fecal impaction in rectum -Start Dulcolax suppositories at night ROMELIA BALDERRAMA Jan 03, 2018 16:22
[2018-01-03] MEDS ORDERED: BISACODYL 10 MG SUPP.RECT. PR PRN (16:30)
[2018-01-03 19:35] VITALS: BP 129/76
--- NOTE | 2018-01-03 23:15 | PN ---
DATE: 01/03/2018 ROOM: 584 SUBJECTIVE: The patient is awake, alert, does shake his head, does say that he does feel better than he has. OBJECTIVE: VITAL SIGNS: Stable and he is afebrile. He is again awake and alert, remains aphasic. CHEST: Reveals good breath sounds. HEART: Regular. ABDOMEN: Has tenderness on examination. LABORATORY DATA: Hemoglobin is 11.5 this morning with white count of 5500, normal differential. I am going to check another KUB this morning, although it appears clinically that his small bowel obstruction is resolving. IMPRESSION: 1. Abdominal pain with small bowel obstruction, clinically improving. 2. Coffee-ground emesis. 3. Fecal impaction on CT. 4. Cortical basilar degeneration. PLAN: Continue present care. Repeat KUB. Feedings per Surgery and GI. Continue supportive care. SANJANA HALL MD DR: PAULA/hoda JOB#: [id number] / [id number]
[2018-01-03 23:35] VITALS: BP 147/92
[2018-01-04 03:35] VITALS: BP 137/104
[2018-01-04] MEDS: MORPHINE SULFATE 4 MG/ML VIAL. IV PRN (04:37)
[2018-01-04] MEDS: cefOXitin SODIUM 2 GM in IV DEXTROSE 5% 100ML 100 ML IV SCH ×3 (06:08→23:07)
[2018-01-04 07:00] VITALS: BP 122/86
--- NOTE | 2018-01-04 09:00 | PDOC ---
SURGICAL PROGRESS NOTE Subjective Patient is awake denies pain. Appears to be tolerating tube feeds Vital Signs Vital Signs Date Time Temp Pulse Resp B/P (MAP) Pulse Ox O2 Delivery O2 Flow Rate FiO2 01/04/18 07:00 98.0 98 20 122/86 (98) 94 Nasal Cannula 4.0 98.0 I&O Intake and Output 01/04/18 07:00 Intake Total 0 ml Balance 0 ml Intake Oral 0 ml # Voids 8 PATIENT HAS A MCDONALD: No General: Alert, Cooperative, No acute distress Abdomen: Normal bowel sounds, Soft, No tenderness, Other (tube feeds per gastrostomy tube) Labs Laboratory Tests Test 01/03/18 04:00 White Blood Count 5.5 x10^3/uL (4.0-11.0) Red Blood Count 3.61 x10^6/uL (4.30-5.70) Hemoglobin 11.5 g/dL (13.0-17.5) Hematocrit 33.3 % (39.0-53.0) Mean Corpuscular Volume 92 fL (79-100) Mean Corpuscular Hemoglobin 32 pg (25-35) Mean Corpuscular Hemoglobin Concent 35 g/dL (31-37) Red Cell Distribution Width 13.7 % (11.5-14.5) Platelet Count 218 x10^3/uL (140-400) Neutrophils (%) (Auto) 63 % (31-73) Lymphocytes (%) (Auto) 22 % (24-48) Monocytes (%) (Auto) 12 % (0-9) Eosinophils (%) (Auto) 2 % (0-3) Basophils (%) (Auto) 1 % (0-3) Neutrophils # (Auto) 3.5 x10^3uL (1.8-7.7) Lymphocytes # (Auto) 1.2 x10^3/uL (1.0-4.8) Monocytes # (Auto) 0.7 x10^3/uL (0.0-1.1) Eosinophils # (Auto) 0.1 x10^3/uL (0.0-0.7) Basophils # (Auto) 0.0 x10^3/uL (0.0-0.2) Assessment/Plan Tolerating tube feeds would advance until goals are met No plans for surgical intervention as small bowel obstruction appears to be resolving HALIMA JURADO MD Jan 04, 2018 09:00
[2018-01-04] MEDS: PANTOPRAZOLE IV PUSH 40 MG VIAL. IVP SCH (09:27)
[2018-01-04 11:00] VITALS: BP 118/61
[2018-01-04 15:00] VITALS: BP 126/84
--- NOTE | 2018-01-04 15:15 | PN ---
DATE: 01/04/2018 Room 584. SUBJECTIVE: The patient is awake, alert. Denies any major complaints. States his abdominal pain is better. States he had a bowel movement yesterday, although I am not sure this is accurate. OBJECTIVE: VITAL SIGNS: Stable. He is afebrile. Last hemoglobin was 11.5. KUB yesterday, still showed dilated loops of small bowel in the upper abdominal area and ongoing fecal impaction. CHEST: Clear. HEART: Regular. ABDOMEN: Essentially nontender this morning. ASSESSMENT: 1. Clinically resolving small-bowel obstruction. 2. Upper gastrointestinal bleed with no further evidence of this. 3. Fecal impaction. PLAN: We will give enemas today until clear and advance tube feeding goals back to his normal rate as tolerated, which he seems to be tolerating at 20 mL an hour now. SANJANA HALL MD DR: PAULA/hoda JOB#: [id number] / [id number]
[2018-01-04] MEDS: IV 1/2 NORMAL SALINE 1,000 ML IV SCH (16:50)
[2018-01-04 19:00] VITALS: BP 114/75
[2018-01-04 23:00] VITALS: BP 124/82
[2018-01-05 03:00] VITALS: BP 111/79
[2018-01-05] MEDS: cefOXitin SODIUM 2 GM in IV DEXTROSE 5% 100ML 100 ML IV SCH ×3 (05:39→21:42)
[2018-01-05 07:00] VITALS: BP 106/62
--- NOTE | 2018-01-05 09:21 | PDOC ---
SURGICAL PROGRESS NOTE Subjective Patient sleeping comfortably. Spoke with the nurse patient did have an episode of emesis last night and a bowel movement this morning tube feedings were held after emesis Vital Signs Vital Signs Date Time Temp Pulse Resp B/P (MAP) Pulse Ox O2 Delivery O2 Flow Rate FiO2 01/05/18 07:00 97.8 87 18 106/62 (77) 90 Nasal Cannula 3.0 97.8 I&O Intake and Output 01/05/18 07:00 Intake Total 0 ml Balance 0 ml Intake Oral 0 ml # Voids 9 # Bowel Movements 1 General: No acute distress Abdomen: Normal bowel sounds, Soft, No tenderness Assessment/Plan Patient tolerated tube feedings at 20 mL per hour for over 24 hours and had an episode of emesis last night appears to be comfortable this morning did have a bowel movement. Try restarting tube feeds again at 20 mL/h HALIMA JURADO MD Jan 05, 2018 09:21
[2018-01-05] MEDS: PANTOPRAZOLE IV PUSH 40 MG VIAL. IVP SCH (09:52)
[2018-01-05 10:53] VITALS: BP 110/60
[2018-01-05] MEDS: IV 1/2 NORMAL SALINE 1,000 ML IV SCH ×2 (14:04→19:10)
[2018-01-05 15:00] VITALS: BP 115/59
[2018-01-05 19:00] VITALS: BP 107/68
--- NOTE | 2018-01-05 22:29 | PN ---
DATE: 01/05/2018 LOCATION: He is in room 584. SUBJECTIVE: The patient awakens easily. Denies any significant complaints at this point in time. Nursing reports vomiting overnight and tube feedings were held. They have been restarted by Surgery at 20 mL an hour again this morning. OBJECTIVE: VITAL SIGNS: Stable. He is afebrile. CHEST: Clear. HEART: Regular. ABDOMEN: Reveals mild diffuse tenderness. EXTREMITIES: Without cyanosis, clubbing or edema. IMPRESSION: 1. Hematemesis, resolved. 2. Small-bowel obstruction, clinically improved, but the vomiting overnight would suggest is not completely resolved. 3. Fecal impaction with bowel movement yesterday per nursing. PLAN: At this point, we will leave the tube feedings on at 20 mL an hour. We will recheck another KUB in the morning. IV fluids are ongoing. SANJANA HALL MD DR: PAULA/hoda JOB#: [id number] / [id number]
[2018-01-05 23:00] VITALS: BP 115/75
[2018-01-05] MEDS ORDERED: ONDANSETRON PF 4 MG/2 ML VIAL. IV PRN (23:15)
[2018-01-06] MEDS: MORPHINE SULFATE 4 MG/ML VIAL. IV PRN (00:13)
[2018-01-06 03:00] VITALS: BP 107/74
[2018-01-06] MEDS: cefOXitin SODIUM 2 GM in IV DEXTROSE 5% 100ML 100 ML IV SCH ×3 (05:22→21:42)
[2018-01-06] MEDS: IV 1/2 NORMAL SALINE 1,000 ML IV SCH ×2 (05:25→21:50)
[2018-01-06 07:00] VITALS: BP 106/62
--- NOTE | 2018-01-06 08:15 | RAD ---
Portable abdomen, 01/06/2018: HISTORY: Small bowel obstruction Comparison is made to a study from 01/03/2018. A gastrostomy tube is unchanged in position. There is a moderate persistent fecal impaction the rectum. There is a moderate amount of gas in large and small bowel. Relative prominence of gaseous small bowel distention has diminished. No new abnormality is detected. IMPRESSION: 1. Persistent fecal impaction the rectum. 2. Moderate amount gas in large and small bowel with the overall pattern suggesting an ileus or atonic colon. Electronically signed by: Delmer Peacock MD (01/06/2018 8:11 AM) [facility]
--- NOTE | 2018-01-06 08:19 | PDOC ---
CASSIDY PIRES APRN 01/06/18817: SURGICAL PROGRESS NOTE Subjective noted reveal emesis overnight stool documented Vital Signs Vital Signs Date Time Temp Pulse Resp B/P (MAP) Pulse Ox O2 Delivery O2 Flow Rate FiO2 01/06/18 07:00 97.7 71 18 106/62 (77) 95 Nasal Cannula 3.0 97.7 I&O Intake and Output 01/06/18 07:00 Intake Total 220 ml Output Total 100 ml Balance 120 ml Tube Feeding 220 ml Output Urine Total 0 ml Gastric Drainage Total 0 ml Emesis 100 ml # Voids 3 # Bowel Movements 1 General: Cooperative, No acute distress Abdomen: Soft, No tenderness Assessment/Plan stool impaction in rectum ileus noted laxatives ordered TF on hold currently HALIMA JURADO MD 01/06/18 0849: SURGICAL PROGRESS NOTE Assessment/Plan Patient seen and examined. No acute changes abd soft, NT Had emesis. Will obtain SBFT for further evaluation. Agree with Radha's assessment and plan. CASSIDY PIRES APRN Jan 06, 2018 08:18 HALIMA JURADO MD Jan 06, 2018 08:49
[2018-01-06] MEDS ORDERED: IOHEXOL 300 MG/ML 100ML VIAL. IJ ONE (09:00)
[2018-01-06] MEDS ORDERED: CONTRAST GIVEN. MC PRN (09:00)
[2018-01-06] MEDS: PANTOPRAZOLE IV PUSH 40 MG VIAL. IVP SCH (09:06)
[2018-01-06 11:16] VITALS: BP 114/65
--- NOTE | 2018-01-06 12:31 | PN ---
DATE: 01/06/2018 LOCATION: He is in room 584. SUBJECTIVE: The patient is awake, alert. Denies any significant abdominal pain or nausea at this point in time. He has had ongoing emesis per nursing and tube feeding is currently on hold. OBJECTIVE: VITAL SIGNS: Stable. He is afebrile. CHEST: Clear. HEART: Regular. ABDOMEN: Benign. NEUROLOGICAL EXAMINATION: Stable. LABORATORY DATA: KUB this morning reveals persistent fecal impaction in the rectum with a moderate amount of gas in the large and small bowel, with the overall pattern suggesting an ileus or an atonic colon. IMPRESSION: 1. Hematemesis, resolved. 2. Small-bowel obstruction versus ileus, ongoing. 3. Fecal impaction. PLAN: I am surprised actually about the fecal impaction as the enemas were ordered to clear. We will repeat this again today. GI and Surgery are following along and we will prefer any thoughts that they might have. We are going to be reaching a point here pretty soon. We are going to have to consider alternative nutritional strategies if we are unable to use the tube feedings. SANJANA HALL MD DR: PAULA/hoda JOB#: [id number] / [id number]
--- NOTE | 2018-01-06 13:01 | RAD ---
Small bowel series, 01/06/2018: HISTORY: Possible small bowel obstruction Serial digital images and fluoroscopic spot images were obtained following injection of nonionic contrast into the patient's gastrostomy tube. Two fluoroscopic spot images were recorded. 0.6 minutes of fluoroscopy time was utilized. There is mild distention of loops of jejunum in the left midabdomen. No fold thickening is seen. No focal obstructive process is evident. The distal small bowel loops are not dilated. The GI tract contrast reached the right colon at 2 hours and 10 minutes. The terminal ileum could not be clearly from other loops of distal small bowel. No distal ileal abnormality is detected. IMPRESSION: Mild distention of loops of jejunum which may reflect low-grade partial small bowel obstruction. A follow-up KUB may be useful in further evaluation of the GI tract transit. Electronically signed by: Delmer Peacock MD (01/06/2018 12:57 PM) [facility]
[2018-01-06 14:58] VITALS: BP 109/60
--- NOTE | 2018-01-06 15:27 | PDOC ---
Subjective: Subjective: Per review of chart, pt has had BM today. He has also had episodes of emesis per RN and tube feeds have been on hold. Pt has been seen by PCP who ordered enema until clear. Pt also being followed by surgery, who ordered SBS. Objective: Vital Signs: Vital Signs Date Time Temp Pulse Resp B/P (MAP) Pulse Ox O2 Delivery O2 Flow Rate FiO2 01/06/18 14:58 97.7 73 18 109/60 (76) 95 Nasal Cannula 3.0 97.7 Imaging: Small bowel series 01/06/18 IMPRESSION: Mild distention of loops of jejunum which may reflect low-grade partial small bowel obstruction. A follow-up KUB may be useful in further evaluation of the GI tract transit. PE: GEN: NAD LUNGS: CTAB HEART: RRR, no murmurs ABD: NABS, S/ND/NT, no masses EXTREMITY: No edema A/P: Small bowel obstruction versus ileus tolerated removal of NG tube -Persistent low-grade SBO on recent SBS- await surgical opinion Console nutrition to start G-tube feedings slowly Fecal impaction in rectum -Continue Dulcolax suppositories at night -PCP has ordered enema till clear ROMELIA BALDERRAMA Jan 06, 2018 15:27
[2018-01-06 19:00] VITALS: BP 119/69
[2018-01-06 22:35] VITALS: BP 118/77
[2018-01-07 03:05] VITALS: BP 123/63
[2018-01-07] MEDS: cefOXitin SODIUM 2 GM in IV DEXTROSE 5% 100ML 100 ML IV SCH ×3 (05:52→21:56)
[2018-01-07 07:00] VITALS: BP 122/82
[2018-01-07] MEDS: IV 1/2 NORMAL SALINE 1,000 ML IV SCH (08:18)
[2018-01-07] MEDS: PANTOPRAZOLE IV PUSH 40 MG VIAL. IVP SCH (08:19)
[2018-01-07 09:38] LABS: BASO % 1 % (0-3); EOS # 0.1 x10^3/uL (0.0-0.7); EOS % 1 % (0-3); HEMATOCRIT 31.6 % (39.0-53.0); HEMOGLOBIN 10.9 g/dL (13.0-17.5); LYMPH % 14 % (24-48); MEAN CORPUSCULAR HEMOGLOBIN 32 pg (25-35); MEAN CORPUSCULAR HGB CONC 35 g/dL (31-37); MEAN CORPUSCULAR VOLUME 91 fL (79-100); MONO # 0.6 x10^3/uL (0.0-1.1); MONO % 8 % (0-9); NEUT # 5.7 x10^3uL (1.8-7.7); NEUT % 76 % (31-73); PLATELET COUNT 211 x10^3/uL (140-400); RED BLOOD COUNT 3.48 x10^6/uL (4.30-5.70); RED CELL DISTRIBUTION WIDTH 13.5 % (11.5-14.5); WHITE BLOOD COUNT 7.5 x10^3/uL (4.0-11.0)
[2018-01-07 09:43] LABS: CALCIUM 8.1 mg/dL (8.5-10.1); CREATININE 0.6 mg/dL (0.7-1.3)
[2018-01-07 09:52] LABS: POTASSIUM 2.8 mmol/L (3.5-5.1)
--- NOTE | 2018-01-07 09:54 | PN ---
DATE: 01/07/2018 LOCATION: He is in room 584. SUBJECTIVE: The patient is sleeping, but easily awakens. Denies any significant pain. OBJECTIVE: VITAL SIGNS: Stable. He is afebrile. CHEST: Clear. HEART: Regular. ABDOMEN: Diffusely mildly tender. NEUROLOGIC: Stable. Small bowel series yesterday shows ongoing small-bowel obstruction. IMPRESSION: 1. Hematemesis, resolved. 2. Small-bowel obstruction, ongoing. 3. Fecal impaction. PLAN: We will follow GI and Surgery's recommendation as this is getting now several days into this episode and we are not able to restart his tube feedings. At this point, he is being IV hydrated, however, and we will continue that while awaiting further plans. SANJANA HALL MD DR: PAULA/hoda JOB#: [id number] / [id number]
--- NOTE | 2018-01-07 10:59 | PDOC ---
CASSIDY PIRES [employer] 01/07/18 1059: SURGICAL PROGRESS NOTE Subjective resting denies pain nursing reports 2 stools overnight Vital Signs Vital Signs Date Time Temp Pulse Resp B/P (MAP) Pulse Ox O2 Delivery O2 Flow Rate FiO2 01/07/18 08:00 Nasal Cannula 3.0 01/07/18 07:00 97.8 73 18 122/82 (95) 94 97.8 I&O Intake and Output 01/07/18 07:00 Intake Total 0 ml Balance 0 ml Intake Oral 0 ml # Voids 3 # Bowel Movements 1 General: Alert, Oriented X3, Cooperative, No acute distress Abdomen: Soft Labs Laboratory Tests Test 01/07/18 07:18 01/07/18 09:20 Glucose (Fingerstick) 65 mg/dL (70-99) White Blood Count 7.5 x10^3/uL (4.0-11.0) Red Blood Count 3.48 x10^6/uL (4.30-5.70) Hemoglobin 10.9 g/dL (13.0-17.5) Hematocrit 31.6 % (39.0-53.0) Mean Corpuscular Volume 91 fL (79-100) Mean Corpuscular Hemoglobin 32 pg (25-35) Mean Corpuscular Hemoglobin Concent 35 g/dL (31-37) Red Cell Distribution Width 13.5 % (11.5-14.5) Platelet Count 211 x10^3/uL (140-400) Neutrophils (%) (Auto) 76 % (31-73) Lymphocytes (%) (Auto) 14 % (24-48) Monocytes (%) (Auto) 8 % (0-9) Eosinophils (%) (Auto) 1 % (0-3) Basophils (%) (Auto) 1 % (0-3) Neutrophils # (Auto) 5.7 x10^3uL (1.8-7.7) Lymphocytes # (Auto) 1.0 x10^3/uL (1.0-4.8) Monocytes # (Auto) 0.6 x10^3/uL (0.0-1.1) Eosinophils # (Auto) 0.1 x10^3/uL (0.0-0.7) Basophils # (Auto) 0.0 x10^3/uL (0.0-0.2) Sodium Level 138 mmol/L (136-145) Potassium Level 2.8 mmol/L (3.5-5.1) Chloride Level 101 mmol/L (98-107) Carbon Dioxide Level 24 mmol/L (21-32) Anion Gap 13 (6-14) Blood Urea Nitrogen 17 mg/dL (8-26) Creatinine 0.6 mg/dL (0.7-1.3) Estimated GFR (Cockcroft-Gault) 137.0 Glucose Level 77 mg/dL (70-99) Calcium Level 8.1 mg/dL (8.5-10.1) Laboratory Tests Test 01/07/18 07:18 01/07/18 09:20 Glucose (Fingerstick) 65 mg/dL (70-99) White Blood Count 7.5 x10^3/uL (4.0-11.0) Red Blood Count 3.48 x10^6/uL (4.30-5.70) Hemoglobin 10.9 g/dL (13.0-17.5) Hematocrit 31.6 % (39.0-53.0) Mean Corpuscular Volume 91 fL (79-100) Mean Corpuscular Hemoglobin 32 pg (25-35) Mean Corpuscular Hemoglobin Concent 35 g/dL (31-37) Red Cell Distribution Width 13.5 % (11.5-14.5) Platelet Count 211 x10^3/uL (140-400) Neutrophils (%) (Auto) 76 % (31-73) Lymphocytes (%) (Auto) 14 % (24-48) Monocytes (%) (Auto) 8 % (0-9) Eosinophils (%) (Auto) 1 % (0-3) Basophils (%) (Auto) 1 % (0-3) Neutrophils # (Auto) 5.7 x10^3uL (1.8-7.7) Lymphocytes # (Auto) 1.0 x10^3/uL (1.0-4.8) Monocytes # (Auto) 0.6 x10^3/uL (0.0-1.1) Eosinophils # (Auto) 0.1 x10^3/uL (0.0-0.7) Basophils # (Auto) 0.0 x10^3/uL (0.0-0.2) Sodium Level 138 mmol/L (136-145) Potassium Level 2.8 mmol/L (3.5-5.1) Chloride Level 101 mmol/L (98-107) Carbon Dioxide Level 24 mmol/L (21-32) Anion Gap 13 (6-14) Blood Urea Nitrogen 17 mg/dL (8-26) Creatinine 0.6 mg/dL (0.7-1.3) Estimated GFR (Cockcroft-Gault) 137.0 Glucose Level 77 mg/dL (70-99) Calcium Level 8.1 mg/dL (8.5-10.1) Assessment/Plan SBFT--IMPRESSION: Mild distention of loops of jejunum which may reflect low-grade partial small bowel obstruction. A follow-up KUB may be useful in further evaluation of the GI tract transit. appears improved will check abd xray today HALIMA JURADO MD 01/07/18 1104: SURGICAL PROGRESS NOTE Assessment/Plan Patient seen and examined by me. SBFT no obstruction would begin TF again. Agree with Radha's assessment and plan. CASSIDY PIRES APRN Jan 07, 2018 10:59 HALIMA JURADO MD Jan 07, 2018 11:04
[2018-01-07 11:00] VITALS: BP 113/72
[2018-01-07] MEDS ORDERED: POTASSIUM CHLORIDE 40 MEQ in IV NORMAL SALINE 500ML BAG 500 ML IV ONE (11:00)
--- NOTE | 2018-01-07 14:00 | PDOC ---
Subjective: Subjective: Denies pain. Objective: Objective: Reviewed w/ RN - stooled overnight, no c/o pain, no tube feeds. Retching yesterday, not today. Reviewed surgery note - x-ray ordered. Vital Signs: Vital Signs Date Time Temp Pulse Resp B/P (MAP) Pulse Ox O2 Delivery O2 Flow Rate FiO2 01/07/18 11:00 97.9 73 18 113/72 (86) 99 Nasal Cannula 3.0 97.9 Labs: Laboratory Tests Test 01/07/18 07:18 Glucose (Fingerstick) 65 mg/dL (70-99) Imaging: SBFT 01/06 IMPRESSION: Mild distention of loops of jejunum which may reflect low-grade partial small bowel obstruction. A follow-up KUB may be useful in further evaluation of the GI tract transit. PE: GEN: NAD LUNGS: NC HEART: RRR ABD: has just stooled, soft, non-tender, G-tube in place NEURO/PSYCH: awake and alert, nods appropriately A/P: SBO, fecal impaction - improved G tube in place -- Stooling. Today's x-ray not done - await this. G tube feeds per surgery. Continue PPI. ALAYNA RAMIREZ Jan 07, 2018 14:00
[2018-01-07 15:00] VITALS: BP 107/70
--- NOTE | 2018-01-07 15:01 | RAD ---
Portable abdomen, 2 views, 01/07/2018: HISTORY: Small bowel obstruction The GI tract contrast from yesterday's small bowel series has all passed into the colon. The colon is not dilated. There is mild gaseous distention of several small bowel loops in the central abdomen. A gastrostomy tube is projected over the left upper quadrant. No free air seen in the abdomen. IMPRESSION: Mild persistent gaseous distention of several small bowel loops, similar to recent studies. Electronically signed by: Delmer Peacock MD (01/07/2018 2:58 PM) [facility]
[2018-01-07] MEDS: POTASSIUM CHLORIDE 40 MEQ in IV 1/2 NORMAL SALINE 1,000 ML IV SCH (16:05)
[2018-01-07 19:00] VITALS: BP 112/70
[2018-01-07 23:00] VITALS: BP 120/66
[2018-01-08] VITALS (7 sets, daily range): BP systolic 94–116; BP diastolic 57–75
[2018-01-08] MEDS: cefOXitin SODIUM 2 GM in IV DEXTROSE 5% 100ML 100 ML IV SCH ×3 (08:21→22:11)
[2018-01-08] MEDS: PANTOPRAZOLE IV PUSH 40 MG VIAL. IVP SCH (08:21)
[2018-01-08] MEDS: POTASSIUM CHLORIDE 40 MEQ in IV 1/2 NORMAL SALINE 1,000 ML IV SCH (08:22)
[2018-01-08] MEDS: AMINO AC IV SCH ×2 (11:05→23:00)
[2018-01-08] MEDS: POTASSIUM CHLORIDE IV SCH ×2 (11:05→23:00)
[2018-01-08] MEDS: GLYCER IV SCH ×2 (11:05→23:00)
[2018-01-08] MEDS: ELECTROLYTE IV SCH ×2 (11:05→23:00)
--- NOTE | 2018-01-08 12:44 | PDOC ---
Subjective: Subjective: Denies pain. Objective: Vital Signs: Vital Signs Date Time Temp Pulse Resp B/P (MAP) Pulse Ox O2 Delivery O2 Flow Rate FiO2 01/08/18 11:00 97.8 63 18 108/73 (85) 98 Room Air 97.8 01/08/18 08:00 3.0 Labs: Laboratory Tests Test 01/07/18 20:05 Potassium Level 3.3 mmol/L Imaging: Abd X-Ray 01/07 IMPRESSION: Mild persistent gaseous distention of several small bowel loops, similar to recent studies. PE: GEN: NAD LUNGS: CTAB HEART: RRR ABD: non-tender, tube feeds running NEURO/PSYCH: A & O 3 - non-verbal A/P: SBO, fecal impaction - resolved G tube in place -- Improved, tube feeds restarted. ALAYNA RAMIREZ Jan 08, 2018 12:44
--- NOTE | 2018-01-09 02:32 | PN ---
DATE: 01/08/2018 LOCATION: He is in room 584. SUBJECTIVE: The patient is asleep, but awakens easily. Denies any specific pain or complaints. OBJECTIVE: VITAL SIGNS: Stable. He is afebrile. Hemoglobin 10.9. Potassium is up to 3.3 after replacement yesterday from 2.8 and we will continue to replace. KUB yesterday shows an ongoing small-bowel obstruction. Surgery and GI both felt comfortable with some feedings, so we will restart tube feedings at 20 mL per hour. CHEST: Clear. HEART: Regular. ABDOMEN: Benign. IMPRESSION: 1. Small-bowel obstruction, ongoing clinically, appears improved, but has for several days and has not tolerated tube feedings. 2. Hematemesis, resolved. 3. Corticobasal degeneration. 4. Hypokalemia, improved. PLAN: Restart tube feedings at 20 mL an hour as tolerated. We will change as he is going on a week or more now without nutrition to PPN with potassium in the same for replacement fluids. We will follow electrolytes and the patient will be monitored, managed and treated appropriately. SANJANA HALL MD DR: PAULA/hoda JOB#: [id number] / [id number]
[2018-01-09 03:00] VITALS: BP 105/70
[2018-01-09] MEDS: cefOXitin SODIUM 2 GM in IV DEXTROSE 5% 100ML 100 ML IV SCH ×3 (05:01→21:32)
[2018-01-09 05:26] LABS: CALCIUM 9.1 mg/dL (8.5-10.1); CREATININE 0.6 mg/dL (0.7-1.3); POTASSIUM 4.4 mmol/L (3.5-5.1)
[2018-01-09 07:00] VITALS: BP 92/48
[2018-01-09] MEDS: LANSOPRAZOLE 30 MG TAB.RAP.DR FT SCH (08:36)
--- NOTE | 2018-01-09 10:50 | RAD ---
Portable abdomen, 01/09/2018: HISTORY: Small bowel obstruction Comparison is made to a study from 01/07/2018. There is residual contrast material, primarily in the left colon, from the patient's previous small bowel series. There is also a small amount residual contrast in the cecum and a nondilated loop of distal ileum. Mild small bowel distention has diminished. The gastrostomy tube remains in place. No new abnormality is detected. IMPRESSION: Improving mild small bowel distention. Electronically signed by: Delmer Peacock MD (01/09/2018 10:47 AM) [facility]
[2018-01-09 11:00] VITALS: BP 95/56
[2018-01-09] MEDS: ELECTROLYTE IV SCH (12:12)
[2018-01-09] MEDS: POTASSIUM CHLORIDE IV SCH (12:12)
[2018-01-09] MEDS: GLYCER IV SCH (12:12)
[2018-01-09] MEDS: AMINO AC IV SCH (12:12)
--- NOTE | 2018-01-09 12:15 | PDOC ---
Subjective: Subjective: Denies pain. Objective: Objective: 3 stools charted today. Vital Signs: Vital Signs Date Time Temp Pulse Resp B/P (MAP) Pulse Ox O2 Delivery O2 Flow Rate FiO2 01/09/18 08:00 Nasal Cannula 3.0 01/09/18 07:00 98.4 67 16 92/48 (63) 96 98.4 Labs: Laboratory Tests Test 01/09/18 03:45 Sodium Level 135 mmol/L Potassium Level 4.4 mmol/L Chloride Level 100 mmol/L Carbon Dioxide Level 29 mmol/L Anion Gap 6 Blood Urea Nitrogen 7 mg/dL Creatinine 0.6 mg/dL Estimated GFR (Cockcroft-Gault) 137.0 Glucose Level 137 mg/dL Calcium Level 9.1 mg/dL Imaging: KUB 01/09 IMPRESSION: Improving mild small bowel distention. PE: GEN: NAD LUNGS: NC HEART: RRR ABD: non-tender, G tube in place, tube feeds running NEURO/PSYCH: nods and shakes head appropriately - non-verbal A/P: SBO, fecal impaction - resolved G tube in place - tube feeds running -- Improved, DC per surgery/primary. ALAYNA RAMIREZ Jan 09, 2018 12:15
[2018-01-09 15:00] VITALS: BP 104/62
[2018-01-09 19:00] VITALS: BP 88/61
[2018-01-09 23:00] VITALS: BP 90/63
[2018-01-10] MEDS: GLYCER IV SCH ×2 (00:15→04:51)
[2018-01-10] MEDS: ELECTROLYTE IV SCH ×2 (00:15→04:51)
[2018-01-10] MEDS: AMINO AC IV SCH ×2 (00:15→04:51)
[2018-01-10] MEDS: POTASSIUM CHLORIDE IV SCH ×2 (00:15→04:51)
[2018-01-10 03:00] VITALS: BP 88/59
[2018-01-10] MEDS: cefOXitin SODIUM 2 GM in IV DEXTROSE 5% 100ML 100 ML IV SCH ×2 (04:51→13:57)
[2018-01-10 07:00] VITALS: BP 84/58
--- NOTE | 2018-01-10 08:42 | PDOC ---
GENERAL General: see discharge summary. VITAL SIGNS Vital Signs: Vital Signs Date Time Temp Pulse Resp B/P (MAP) Pulse Ox O2 Delivery O2 Flow Rate FiO2 01/10/18 03:00 97.8 64 18 88/59 (69) 97 Room Air 97.8 01/09/18 20:00 3.0 I & O I & O Intake and Output 01/10/18 07:00 Intake Total 1140 ml Balance 1140 ml IV Total 300 ml Tube Feeding 840 ml # Voids 6 # Bowel Movements 8 ALLERGIES Allergies: Allergies Coded Allergies Type Severity Reaction Last Updated Verified I S O L A T I O N *CONTACT* Allergy Unknown 01/02/18 Yes Beef Containing Products Adverse Reaction Intermediate 04/18/17 Yes MEDS Medications: Current Medications Medications (Trade) Dose Ordered Sig/Ksenia Start Time Stop Time Status Last Admin Dose Admin Bisacodyl (Dulcolax Supp) 10 mg PRN DAILY PRN 01/03/18 16:30 Cefoxitin Sodium 2 gm/Dextrose 100 ml @ 200 mls/hr 1X ONCE 12/31/17 20:15 12/31/17 20:44 DC 12/31/17 20:12 200 MLS/HR Fentanyl Citrate (Fentanyl 2ml Vial) 75 mcg 1X ONCE 12/31/17 19:45 12/31/17 19:46 DC 12/31/17 19:37 75 MCG Influenza Virus Vaccine (Afluria Trivalent [id number] Syringe) 0.5 ml ONCE ONCE 01/01/18 09:00 01/01/18 09:01 DC 01/02/18 13:42 0.5 ML Info (CONTRAST GIVEN -- Rx MONITORING) 1 each PRN DAILY PRN 01/06/18 09:00 01/08/18 08:59 DC Iohexol (Omnipaque 300 Mg/ml) 300 ml 1X ONCE 01/06/18 09:00 01/06/18 09:01 DC 01/06/18 09:00 300 ML Lansoprazole (Prevacid) 30 mg DAILY 01/09/18 09:00 01/09/18 08:36 30 MG Metronidazole 100 ml @ 100 mls/hr 1X ONCE 12/31/17 20:15 12/31/17 21:14 DC 12/31/17 21:59 100 MLS/HR Morphine Sulfate (Morphine Sulfate) 4 mg PRN Q2HR PRN 01/01/18 08:15 01/06/18 00:13 4 MG Octreotide Acetate 500 mcg/ Sodium Chloride 101 ml @ 5.05 mls/hr CONT PRN 12/31/17 19:45 01/01/18 14:09 DC 12/31/17 20:12 5.05 MLS/HR Ondansetron HCl (Zofran) 4 mg PRN Q6HRS PRN 01/05/18 23:15 01/06/18 00:12 4 MG Pantoprazole Sodium (PROTONIX VIAL for IV PUSH) 40 mg DAILYAC 01/02/18 07:30 01/08/18 12:44 DC 01/08/18 08:21 40 MG Pantoprazole Sodium 80 mg/ Sodium Chloride 100 ml @ 10 mls/hr Q10H 01/01/18 03:30 01/01/18 09:37 DC 01/01/18 03:32 10 MLS/HR Potassium Chloride 40 meq/ Amino Acids/ Glycerin/ Electrolytes 1,020 ml @ 80 mls/hr [id number] 01/08/18 10:00 01/10/18 04:51 80 MLS/HR Potassium Chloride 40 meq/ Sodium Chloride 1,020 ml @ 75 mls/hr [id number] 01/07/18 11:00 01/08/18 09:57 DC 01/08/18 08:22 75 MLS/HR Sodium Chloride 1,000 ml @ 75 mls/hr [id number] 01/01/18 08:30 01/07/18 10:04 DC 01/07/18 08:18 75 MLS/HR Nutrition Consultation Dietary Evaluation: Recommendations by RD: Increase Calorie Intake, Protein supplementation Comments: REC resume TF per following: Jevity 1.2@goal rate 60 ml/hr w/100 ml water flushes q4 hrs or flushes per MD, will place TF order Expected Outcomes/Goals: tolerate TF at goal rate- goal ongoing Interpretation of weight loss: >20% in 1 year Malnutrition Findings: Weight Status: Appropriate SANJANA HALL MD Jan 10, 2018 08:42
[2018-01-10] MEDS: LANSOPRAZOLE 30 MG TAB.RAP.DR FT SCH (09:05)
[2018-01-10 11:00] VITALS: BP 109/65
--- NOTE | 2018-01-10 11:02 | PN ---
DATE: 01/09/2018 LOCATION: He is in room 584. SUBJECTIVE: The patient is awake, alert. Denies any pain, nausea or vomiting. States that he was having stools. Three stools are charted for the last 24 hours. OBJECTIVE: VITAL SIGNS: Stable. He is afebrile. Potassium is up to 4 today after replacement. KUB today shows improvement in his small bowel obstructive pattern. Tube feedings are at 40 mL an hour. CHEST: Clear. HEART: Regular. ABDOMEN: Benign. IMPRESSION: 1. Small-bowel obstruction, clinically improving with advancement of tube feedings. 2. Hematemesis, resolved. 3. Hypokalemia, resolved. PLAN: Continue to increase tube feedings as tolerated. Likely I will plan on discharge tomorrow if he continues to do well. SANJANA HALL MD DR: PAULA/hoda JOB#: [id number] / [id number]
--- NOTE | 2018-01-10 12:17 | PDOC ---
Subjective: Subjective: I saw him earlier this morning. Tolerating tube feeds. Objective: Objective: 8 stools charted. Vital Signs: Vital Signs Date Time Temp Pulse Resp B/P (MAP) Pulse Ox O2 Delivery O2 Flow Rate FiO2 01/10/18 07:00 97.4 70 20 84/58 (67) 100 Nasal Cannula 3.0 97.4 PE: GEN: NAD LUNGS: CTAB HEART: RRR ABD: soft, non-tender, G tube in place NEURO/PSYCH: non-verbal, smiles and nods A/P: SBO and fecal impaction Coffee-ground emesis - no recurrence G tube in place -- Has DC orders, okay per GI. Can continue PPI. ALAYNA RAMIREZ Jan 10, 2018 12:17
--- NOTE | 2018-01-10 16:01 | DS ---
DATE OF DISCHARGE: 01/10/2018 PRIMARY DIAGNOSES: 1. Small bowel obstruction. 2. Rectal fecal impaction. ADDITIONAL DIAGNOSES: 1. Hematemesis. 2. Cortical basilar degeneration. 3. Hypokalemia, resolved during the stay. 4. Anemia due to gastrointestinal bleed. CHIEF COMPLAINT AND HISTORY OF PRESENT ILLNESS: This 62-year-old senior living resident is well known to me. The patient had onset of coffee-ground emesis in the senior living and abdominal pain on the day of admission, was transferred to the Emergency Room where he was found to have heme-positive emesis described by the ER of at least 3 times of 400 mL each upon presentation. He did have an NG tube placed despite having a G-tube for feeding. He was found on CAT scanning, there was small-bowel obstruction and the rectal impaction. SUMMARY OF STAY: The patient was admitted, was supported with IV fluids, N and G tube drainage, GI and Surgery follow along. He slowly resolved his small-bowel obstruction and was eventually tolerating tube feeds by the time of discharge, again with improvement in the KUB, although was a slow process. Surgery did not feel surgery was necessary throughout the stay, but were ready to do so if needed. Potassium was low during the stay and was replaced. He was felt back to essentially his baseline, tolerating tube feedings at 60 mL per hour and ready for discharge on the day of discharge. DISPOSITION: The patient is discharged back to senior living on his regular senior living routine, which includes tube feedings, meds, activity, etc. We will continue to follow him there. SANJANA HALL MD DR: PAULA/hoda JOB#: [id number] / [id number]
== END 2018-01-10 14:45 | disposition home or self-care (01) | DRG 388 ==
LOC: ER 15:59 → 2 NORTH 17:25 → 5 SOUTH 01-02 15:10
PROVIDERS: ADMIT Family Medicine; ATTEND Family Medicine
PROC: 0D9670Z Drainage of Stomach with Drainage Device, Via Natural or Artificial Opening (ICD-10-PCS; principal; 2017-12-31)
DX: K56.51 Intestinal adhesions [bands], with partial obstruction (principal); J96.00 Acute respiratory failure, unspecified whether with hypoxia or hypercapnia; K92.0 Hematemesis; K56.690 Other partial intestinal obstruction; K21.9 Gastro-esophageal reflux disease without esophagitis; E78.5 Hyperlipidemia, unspecified; D50.0 Iron deficiency anemia secondary to blood loss (chronic); G20 Parkinson's disease; E87.6 Hypokalemia; G31.85 Corticobasal degeneration; I10 Essential (primary) hypertension; M10.9 Gout, unspecified; K56.41 Fecal impaction; Z86.73 Personal history of transient ischemic attack (TIA), and cerebral infarction without residual deficits; Z93.1 Gastrostomy status; Z79.899 Other long term (current) drug therapy
CPT/HCPCS: 36415; 74018; 74021; 74177; 74250; 80048; 80076; 82271; 82962; 83605; 83690; 84132; 84484; 85007; 85025; 85027; 85610; 85730; 86850; 86900; 86901; 87641; 90471; 90756; 93005; 96361; 96365; 96368; 96375; C9113; J0694; J2270; J2354; J2405; J3010; J3480; J3490; J7030; J7040; Q9967; 92523; 99285-25; Q2035

== ENCOUNTER 2021-04-21 05:41 | Inpatient (IN) | payer MEDICARE, MEDICAID ==
[~2021-04-21] VITALS: Ht 177.8 cm; Wt 76.5 kg
[~2021-04-21 05:41] MED LIST changes: +ACET325T9 PEG; +ACET650S PEG; +AMOX1TAB11 PO; +BACL10TA PEG; -BISA10SU15 RC; +BISA10SU71 RC; +CALC300T5 PEG; -CALC500T PO; +CALC500T31 PO; +CARB-183 PEG; +CARB-183 PO; -CEFP100S PEG; +CEFP100S3 PEG; +GABA-585 PEG; +KETO120S4 TP; +MAGN250T9 PEG; +MAGN400O7 PEG; +OMEP20TA8 PEG; -OXYC-327 PO; +OXYC1TAB19 PO; -PANT40TA3 PO; +PANT40TA77 PO; +POLY119P19 PEG; +SERT-267 PO; +SERT100T PEG; -SERT50TA8 PO; +SIMV10TA15 PEG; +SIMV10TA15 PO; -SIMV10TA3 PO; +TRAZ-123 PEG
--- NOTE | 2021-04-21 06:10 | PHYS DOC ---
Past Medical History Past Medical History: Constipation, CVA, Depression, GERD, High Cholesterol, Other Additional Past Medical Histor: Aphasia, corticobasilar degen; joint disorders of bilat hands, contracture Past Surgical History: Other Additional Past Surgical Histo: PEG TUBE Smoking Status: Unknown if ever smoked Alcohol Use: None Drug Use: None General Adult EDM: Chief Complaint: GTUBE REPLACEMENT/MALFUNCTION HPI: HPI: Patient is a 65 year old male who lives in a fdc facility, who was brought in by EMS from his facility for bleeding from his G-tube site. He had reportedly been given all of his regular medications and fluids through his G- tube last night, and this morning when the nurses went to check on him, they noticed that there was blood all over his clothing. The nurses here in the ER tell me that no one from the facility called to give report. EMS does not indicate any report of any known trauma or fall or injury. The patient is bedbound and has quadriplegia. He is nonverbal and is therefore unable to meaningfully participate in history or provide review of systems, at baseline. His most recent admission was for vomiting, bowel obstruction and sepsis. Upon review of his MAR from his care facility, I do not see that he is taking any anticoagulant medications. His G-tube is partially coming out of the stoma site but is not completely removed. The bleeding does appear to be coming from around the stoma site itself. The nursing staff immediately placed pressure over the area. Upon my inspection, there is minimal oozing now from the stoma site, the blood appears to be bright red, there are clots around the area. I was able to clean the area with saline soaked gauze and dry gauze, I placed Surgifoam to the stoma site, covered the area with 4 x 4's and ABD dressings, and the bleeding resolved. Review of Systems: Review of Systems: Review of systems is as per HPI. Unable to obtain more in-depth or meaningful review of systems directly from the patient secondary to chronic clinical conditions. Heart Score: C/O Chest Pain: N/A Risk Factors: Risk Factors: DM, Current or recent (<one month) smoker, HTN, HLP, family history of CAD, obesity. Risk Scores: Score 0 - 3: 2.5% MACE over next 6 weeks - Discharge Home Score 4 - 6: 20.3% MACE over next 6 weeks - Admit for Clinical Observation Score 7 - 10: 72.7% MACE over next 6 weeks - Early Invasive Strategies Allergies: Allergies: Allergies Coded Allergies Type Severity Reaction Last Updated Verified Beef Containing Products Adverse Reaction Intermediate 04/18/17 Yes Physical Exam: PE: Constitutional: Frail, chronically ill-appearing male, appears stated age, intermittently resting, intermittently moaning, not acutely toxic appearing HENT: Normocephalic, atraumatic, mucous membranes are tacky. No evidence of facial or ENT trauma noted Eyes: Sclera are anicteric, no evidence of ocular trauma noted Neck: Normal range of motion, no tenderness, supple, no stridor. [] Cardiovascular:Heart rate regular rhythm, +2 radial pulses bilaterally Lungs & Thorax: Equal chest rise, no evidence of thorax or chest wall trauma, diminished breath sounds in bilateral bases, upper and midlung medina are clear to auscultation bilaterally. No wheezing. No stridor. No tachypnea or distress. Abdomen: Abdomen is moderately obese, mildly distended, no apparent tenderness to palpation. G-tube site with some fresh blood and clots, as detailed in HPI. No active or brisk bleeding after direct pressure and Surgifoam applied. The tissue of the stoma site appears to be pink/red, no surrounding skin erythema, no purulent drainage, no rash or maceration of the skin around the stoma. Bowel sounds are present. Skin: [place]/red stoma site, appears healthy, mild oozing and bleeding initially, which has resolved after direct pressure and Surgifoam application and dressing application. No warmth, erythema, no purulent drainage, no obvious rash of the abdomen or peristoma area. Extremities: Flexion contractures of bilateral upper extremities, no acute limb deformities are noted. No focal areas of tenderness are noted. Atrophy is noted of bilateral upper and lower extremities. Neurologic: Is awake, intermittently alert, unable to assess orientation, he is nonverbal, he is quadriplegic, he demonstrates appropriate gaze, intimately shakes his head yes or no, moans incoherently on occasion Psychologic: Affect overall flat, intermittently moaning/crying, lasting a few seconds and resolving spontaneously EKG: EKG: [] Radiology/Procedures: Radiology/Procedures: IMAGING REPORT Signed PATIENT: [facility] ACCOUNT: [id number] : 1955 LOCATION: ER AGE: 65 SEX: M EXAM STATUS: REG ER ORD. PHYSICIAN: GENE FRY DO REASON: g tube placement confirmation with gastrograffin PROCEDURE: PORTABLE CHEST 1V XR CHEST 1V 04/21/2021 7:44 AM INDICATION: G-tube placement. COMPARISON: None available TECHNIQUE: Portable frontal view of the chest is provided. FINDINGS/ IMPRESSION: The cardiomediastinal silhouette is within normal limits. Increased blunting of left costophrenic angle that represents atelectasis versus trace of pleural effusion. No pulmonary vascular congestion. Pulmonary emphysema. No pneumothorax. Gastrostomy tube is not well profiled on this examination. 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 Electronically signed by: Luis Nunez MD (04/21/2021 8:12 AM) [id number] DICTATED and SIGNED BY: LUIS NUNEZ MD DATE: 04/21/21 [id number] IMAGING REPORT Signed PATIENT: [facility] ACCOUNT: [id number] : 1955 LOCATION: ER AGE: 65 SEX: M EXAM STATUS: REG ER ORD. PHYSICIAN: GENE FRY DO REASON: g tube placement confirmation with gastrograffin PROCEDURE: KUB INDICATION: Reason: g tube placement confirmation with gastrograffin / Spl. Instructions: / History: COMPARISON: April 08, 2019 IMPRESSION: Abdomen: Single view obtained. Large amount of stool is seen within the colon most prominent at rectal region which is dilated measuring up to about 108 mm. Would correlate with symptoms since causes such as fecal impaction is not excluded given this finding. Degenerative changes of the hips and spine. Air- filled distended loops of bowel are seen within the abdomen. Contrast is not well seen therefore cannot assess whether the percutaneous gastrostomy tube is within the stomach or extraluminal in nature. If further information is needed either additional contrast could be injected or a CT could be obtained to assess location. Electronically signed by: Sigrid Rodriguez MD (04/21/2021 8:14 AM) [id number] DICTATED and SIGNED BY: SIGRID RODRIGUEZ MD DATE: 04/21/21 [id number] 0 IMAGING REPORT Signed PATIENT: [facility] ACCOUNT: [id number] : 1955 LOCATION: [address] [place] [address] AGE: 65 SEX: M EXAM STATUS: ADM IN ORD. PHYSICIAN: GENE FRY DO REASON: g tube malfunction, concern for SBO PROCEDURE: CT ABD PELV W/ IV CONTRST ONLY CT ABDOMEN+PELVIS W History: G-tube malfunction, concern for SBO. Comparison: Abdomen radiograph 04/21/2021. CT abdomen and pelvis 04/08/2019. Technique: CT of the abdomen and pelvis with intravenous contrast. Findings: Mild left basilar atelectasis and scarring. No significant airspace consolidation. Heavy coronary artery calcification. The liver, gallbladder, spleen and adrenal glands are unremarkable. Mild pancreatic atrophy. Mild renal atrophy. No nephrolithiasis or hydronephrosis. The bladder and prostate are unremarkable. There is a left upper quadrant percutaneous gastrostomy tube with balloon appropriately positioned within the lumen and held adjacent to the peritoneal wall. The small bowel is nondilated. Normal appendix. Moderate colonic stool burden with large rectal stool ball measuring 9.5 cm diameter. No thickening or pericolonic inflammatory changes. Atherosclerotic calcifications of the aorta and iliac arteries. No adenopathy. No intra-abdominal free air or free fluid. Surgical changes of anterior abdominal wall. Small bowel fat-containing umbilical hernia. Degenerative changes of the spine. No acute osseous abnormality. Multiple healed lower rib fractures posteriorly. Impression: 1. Appropriately positioned percutaneous gastrostomy tube. 2. No evidence of small bowel obstruction. 3. Large rectal stool burden. ------ Exposure: One or more of the following individualized dose reduction techniques were utilized for this examination: 1. Automated exposure control 2. Adjustment of the mA and/or kV according to patient size 3. Use of iterative reconstruction technique. Electronically signed by: Arturo Crandall MD (04/21/2021 9:41 AM) [id number] DICTATED and SIGNED BY: ARTURO CRANDALL MD DATE: 04/21/21 [id number] 0 Course & Med Decision Making: Course & Med Decision Making Pertinent Labs and Imaging studies reviewed. (See chart for details) The patient seemed to be intermittently in some pain, IV fentanyl was given. IV fluids were ordered. He had some relative hypotension, which improved. Map was still over 60. Lactic acid is slightly elevated. He has mild leukocytosis. He is empirically given IV Zosyn for sepsis coverage. CT of the abdomen and pelvis does not reveal any small bowel obstruction. G-tube does appear to be in appropriate position. I tried with the radiology staff to flush the tube with Gastrografin, unsuccessfully, multiple attempts. His bleeding from the stoma site is well controlled, no recurrent bleeding. I have explained to the patient I recommend hospitalization. I spoke with Dr. Ivey, who accepts him for admission. It is possible that his G-tube will need to be replaced, but it michael ears to be at least malfunctioning, possible distal obstruction. He may require GI consultation, I have requested IR consultation as well as general surgery consultation, all services have seen him in the past. Dago Disclaimer: Dago Disclaimer: This electronic medical record was generated, in whole or in part, using a voice recognition dictation system. Departure Departure Impression: Primary Impression: Gastrostomy tube dysfunction Additional Impressions: Stomal bleeding Lactic acidosis History of small bowel obstruction Quadriplegia Disposition: ADMITTED INPATIENT Admitting Physician: Sanjana Ivey Condition: GUARDED Referrals: SANJANA IVEY MD (PCP) GENE FRY DO Apr 21, 2021 06:10
[2021-04-21] MEDS ORDERED: GELATIN SPONGE SIZE 12-7MM SPONGE. ONE (06:18)
[2021-04-21] MEDS ORDERED: IOHEXOL 300 MG/ML 50 ML VIAL. IJ ONE (07:30)
[2021-04-21] MEDS ORDERED: CONTRAST GIVEN. MC PRN ×2 (07:30→15:00)
[2021-04-21 07:32] LABS: CALCIUM 8.5 mg/dL (8.5-10.1); CREATININE 0.6 mg/dL (0.7-1.3); GFR 135.6; POTASSIUM 4.1 mmol/L (3.5-5.1)
[2021-04-21 07:33] LABS: BASO % 0 % (0-3); EOS # 0.2 x10^3/uL (0.0-0.7); EOS % 2 % (0-3); HEMATOCRIT 34.7 % (39.0-53.0); HEMOGLOBIN 11.2 g/dL (13.0-17.5); LYMPH # 1.1 x10^3/uL (1.0-4.8); LYMPH % 9 % (24-48); MEAN CORPUSCULAR HEMOGLOBIN 30 pg (25-35); MEAN CORPUSCULAR HGB CONC 32 g/dL (31-37); MEAN CORPUSCULAR VOLUME 91 fL (79-100); MONO # 0.7 x10^3/uL (0.0-1.1); MONO % 6 % (0-9); NEUT # 9.4 x10^3/uL (1.8-7.7); NEUT % 83 % (31-73); PLATELET COUNT 284 x10^3/uL (140-400); RED BLOOD COUNT 3.81 x10^6/uL (4.30-5.70); RED CELL DISTRIBUTION WIDTH 14.3 % (11.5-14.5); WHITE BLOOD COUNT 11.3 x10^3/uL (4.0-11.0)
[2021-04-21 07:38] LABS: ALBUMIN 2.9 g/dL (3.4-5.0); ALBUMIN/GLOBULIN RATIO 0.6 (1.0-1.7); TOTAL BILIRUBIN 0.2 mg/dL (0.2-1.0); TOTAL PROTEIN 8.1 g/dL (6.4-8.2)
[2021-04-21 07:44] LABS: PROTHROMBIN TIME PATIENT 13.5 SEC (11.7-14.0)
[2021-04-21] MEDS ORDERED: IV NORMAL SALINE 1000ML BAG 1,000 ML IV ONE (07:45)
--- NOTE | 2021-04-21 08:15 | RAD ---
XR CHEST 1V 04/21/2021 7:44 AM INDICATION: G-tube placement. COMPARISON: None available TECHNIQUE: Portable frontal view of the chest is provided. FINDINGS/ IMPRESSION: The cardiomediastinal silhouette is within normal limits. Increased blunting of left costophrenic angle that represents atelectasis versus trace of pleural eff usion. No pulmonary vascular congestion. Pulmonary emphysema. No pneumothorax. Gastrostomy tube is not well profiled on this examination. There is likely colonic interposition kee g the right hemidiaphragm. Electronically signed by: Louise Phan MD (04/21/2021 8:12 AM) [id number]
--- NOTE | 2021-04-21 08:16 | RAD ---
INDICATION: Reason: g tube placement confirmation with gastrograffin / Spl. Instructions: / History: COMPARISON: April 08, 2019 IMPRESSION: Abdomen: Single view obtained. Large amount of stool is seen within the colon most prominent at recta l region which is dilated measuring up to about 108 mm. Would correlate with symptoms since causes escoto ch as fecal impaction is not excluded given this finding. Degenerative changes of the hips and spine. Air-filled distended loops of bowel are seen within the abdomen. Contrast is not well seen therefore cannot assess whether the percutaneous gastrostomy tube is within the stomach or extraluminal in rohith ure. If further information is needed either additional contrast could be injected or a CT could be o btained to assess location. Electronically signed by: Yariel Delarosa MD (04/21/2021 8:14 AM) [id number]
[2021-04-21] MEDS ORDERED: PIPERACILLIN/TAZOBACTAM 3.375 GM in IV NORMAL SALINE 50ML 50 ML IV ONE (08:30)
[2021-04-21] MEDS ORDERED: IOHEXOL 300 MG/ML 100ML VIAL. IV ONE (08:45)
[2021-04-21] MEDS ORDERED: fentaNYL PF VIAL 100 MCG/2 ML VIAL IVP ONE (08:45)
--- NOTE | 2021-04-21 09:44 | RAD ---
CT ABDOMEN+PELVIS W History: G-tube malfunction, concern for SBO. Comparison: Abdomen radiograph 04/21/2021. CT abdomen and pelvis 04/08/2019. Technique: CT of the abdomen and pelvis with intravenous contrast. Findings: Mild left basilar atelectasis and scarring. No significant airspace consolidation. Heavy coronary art iggy calcification. The liver, gallbladder, spleen and adrenal glands are unremarkable. Mild pancreatic atrophy. Mild laurie al atrophy. No nephrolithiasis or hydronephrosis. The bladder and prostate are unremarkable. There is a left upper quadrant percutaneous gastrostomy tube with balloon appropriately positioned wi thin the lumen and held adjacent to the peritoneal wall. The small bowel is nondilated. Normal append ix. Moderate colonic stool burden with large rectal stool ball measuring 9.5 cm diameter. No thickeni ng or pericolonic inflammatory changes. Atherosclerotic calcifications of the aorta and iliac arteries. No adenopathy. No intra-abdominal amrvin e air or free fluid. Surgical changes of anterior abdominal wall. Small bowel fat-containing umbilica l hernia. Degenerative changes of the spine. No acute osseous abnormality. Multiple healed lower rib fractures posteriorly. Impression: 1. Appropriately positioned percutaneous gastrostomy tube. 2. No evidence of small bowel obstruction. 3. Large rectal stool burden. ------ Exposure: One or more of the following individualized dose reduction techniques were utilized for thi s examination: 1. Automated exposure control 2. Adjustment of the mA and/or kV according to patient size 3. Use of iterative reconstruction technique. Electronically signed by: Arturo Soto MD (04/21/2021 9:41 AM) [id number]
[2021-04-21 10:00] VITALS: BP 128/71
[2021-04-21 11:00] VITALS: BP 113/65
[2021-04-21] MEDS ORDERED: ONDANSETRON PF 4 MG/2 ML VIAL. IVP PRN (11:00)
[2021-04-21] MEDS ORDERED: IV DEXTROSE 5 %-0.45 % NACL 1,000 ML IV ONE (11:00)
--- NOTE | 2021-04-21 12:57 | PDOC2 ---
CASSIDY PIRES BOTTOMING ROOM SUPERVISOR 04/21/21 1256: CONSULT Date of Consult Date of Consult DATE: 04/21/21 TIME: 12:50 Reason for Consult Reason for Consult: g tube malfunction Referring Physician Referring Physician: ER Identification/Chief Complaint Chief Complaint bleeding around g tube Source Source: Chart review History of Present Illness Reason for Visit: Patient known from previous admissions, surgeries. Long standing feeding tube in place. Resided in [place], from records had bleeding around g tube. Was able to stop bleeding in ER. Ct shows g tube in correct position, however unable to flush g tube with gastrografin Past Medical History Cardiovascular: HTN CENTRAL NERVOUS SYSTEM: CVA GI: GERD Rheumatologic: Gout Past Surgical History Past Surgical History: Other, No pertinent history Family History Family History: No Significant Social History ALCOHOL: none Current Problem List Problem List Problems Medical Problems: (1) Gastrostomy tube dysfunction Status: Acute (2) History of small bowel obstruction Status: Acute (3) Lactic acidosis Status: Acute (4) Quadriplegia Status: Acute (5) Stomal bleeding Status: Acute Current Medications Current Medications Current Medications Gelatin (Gelfoam Size 12-7mm) 1 each STK-MED ONCE .ROUTE ; Start 04/21/21 at 06:18; Stop 04/21/21 at 06:19; Status DC Iohexol (Omnipaque 300 Mg/ml) 50 ml 1X ONCE IJ ; Start 04/21/21 at 07:30; Stop 04/21/21 at 07:31; Status DC Info (CONTRAST GIVEN -- Rx MONITORING) 1 each PRN DAILY PRN MC SEE COMMENTS; Start 04/21/21 at 07:30; Stop 04/23/21 at 07:29 Sodium Chloride 1,000 ml @ 1,000 mls/hr 1X ONCE IV Last administered on 04/21/21at 08:37; Start 04/21/21 at 07:45; Stop 04/21/21 at 08:44; Status DC Piperacillin Sod/ Tazobactam Sod 3.375 gm/Sodium Chloride 50 ml @ 100 mls/hr 1X ONCE IV Last administered on 04/21/21at 08:37; Start 04/21/21 at 08:30; Stop 04/21/21 at 08:59; Status DC Iohexol (Omnipaque 300 Mg/ml) 100 ml 1X ONCE IV Last administered on 04/21/21at 08:52; Start 04/21/21 at 08:45; Stop 04/21/21 at 08:46; Status DC Fentanyl Citrate (Fentanyl 2ml Vial) 50 mcg 1X ONCE IVP Last administered on 04/21/21at 08:49; Start 04/21/21 at 08:45; Stop 04/21/21 at 08:46; Status DC Ondansetron HCl (Zofran) 4 mg PRN Q8HRS PRN IVP NAUSEA/VOMITING; Start 04/21/21 at 11:00; Stop 04/22/21 at 10:59 Dextrose/Sodium Chloride 1,000 ml @ 100 mls/hr 1X ONCE IV Last administered on 04/21/21at 11:42; Start 04/21/21 at 11:00; Stop 04/21/21 at 20:59 Active Scripts Active Amox Tr-K Clv 875-125 Mg Tab (Amoxicillin/Potassium Clav) 1 Each Tablet 1 Tab PO BID 7 Days Aspirin 325 Mg Tablet 325 Mg PO [id number] Reported Ketoconazole 120 Ml Shampoo 1 Martha TP TWICE WEEKLY 30 Days Mondays and Tylenol (Acetaminophen) 325 Mg Tablet 160 Mg PEG PRN Q6HRS PRN Sinemet 25-100 Mg Tablet (Carbidopa/Levodopa) 1 Each Tablet 1 Tab PO TID Tums (Calcium Carbonate) 300 Mg Tab.chew 500 Mg PEG PRN Q3HRS Simvastatin 10 Mg Tablet 0.5 Tab PEG QHS Glycolax (Polyethylene Glycol 3350) 119 Gm Powder 17 Gm PEG PRN DAILY PRN Milk Of Magnesia (Magnesium Hydroxide) 400 Mg/5 Ml Oral.susp 800 Mg PEG DAILY Magnesium Oxide 250 Mg Tablet 250 Mg PEG HS Gabapentin (Gabapentin) 100 Mg Capsule 100 Mg PEG TID Zoloft (Sertraline Hcl) 100 Mg Tablet 1 Tab PEG DAILY Baclofen 10 Mg Tablet 1 Tab PEG TID Trazodone Hcl 100 Mg Tablet 100 Mg PEG HS Loratadine 10 Mg Tablet 1 Tab PEG DAILY Flonase Allergy Relief (Fluticasone Propionate) 9.9 Ml Nebo.susp 1 Sprays NS DAILY Allopurinol 100 Mg Tablet 2 Tab PEG DAILY Allergies Allergies: Coded Allergies: Beef Containing Products (Verified Adverse Reaction, Intermediate, 04/18/17) Unknown reaction/allergy. Beef is listed on patient's paperwork from [facility] as an allergy. Possibly d/t patient's swallowing ability. ROS Review of System unable to obtain hx from pt Physical Exam General: Cooperative, No acute distress HEENT: PERRLA, Mucous membr. moist/pink Lungs: Clear to auscultation, Normal air movement Heart: Regular rate, Normal S1 Abdomen: Soft, Other (g tube in place, currently no bleeding noted ) Extremities: No clubbing, No cyanosis MUSCULOSKELETAL: No deformity, No swelling Vitals VITALS Vital Signs Date Time Temp Pulse Resp B/P (MAP) Pulse Ox O2 Delivery O2 Flow Rate FiO2 04/21/21 10:00 97.9 96 20 128/71 (90) 95 Room Air 97.9 Labs Labs Laboratory Tests Test 04/21/21 07:05 04/21/21 10:55 White Blood Count 11.3 x10^3/uL (4.0-11.0) Red Blood Count 3.81 x10^6/uL (4.30-5.70) Hemoglobin 11.2 g/dL (13.0-17.5) Hematocrit 34.7 % (39.0-53.0) Mean Corpuscular Volume 91 fL (79-100) Mean Corpuscular Hemoglobin 30 pg (25-35) Mean Corpuscular Hemoglobin Concent 32 g/dL (31-37) Red Cell Distribution Width 14.3 % (11.5-14.5) Platelet Count 284 x10^3/uL (140-400) Neutrophils (%) (Auto) 83 % (31-73) Lymphocytes (%) (Auto) 9 % (24-48) Monocytes (%) (Auto) 6 % (0-9) Eosinophils (%) (Auto) 2 % (0-3) Basophils (%) (Auto) 0 % (0-3) Neutrophils # (Auto) 9.4 x10^3/uL (1.8-7.7) Lymphocytes # (Auto) 1.1 x10^3/uL (1.0-4.8) Monocytes # (Auto) 0.7 x10^3/uL (0.0-1.1) Eosinophils # (Auto) 0.2 x10^3/uL (0.0-0.7) Basophils # (Auto) 0.0 x10^3/uL (0.0-0.2) Prothrombin Time 13.5 SEC (11.7-14.0) Prothromb Time International Ratio 1.0 (0.8-1.1) Activated Partial Thromboplast Time 33 SEC (24-38) Sodium Level 134 mmol/L (136-145) Potassium Level 4.1 mmol/L (3.5-5.1) Chloride Level 99 mmol/L (98-107) Carbon Dioxide Level 28 mmol/L (21-32) Anion Gap 7 (6-14) Blood Urea Nitrogen 18 mg/dL (8-26) Creatinine 0.6 mg/dL (0.7-1.3) Estimated GFR (Cockcroft-Gault) 135.6 BUN/Creatinine Ratio 30 (6-20) Glucose Level 130 mg/dL (70-99) Lactic Acid Level 2.4 mmol/L (0.4-2.0) 1.7 mmol/L (0.4-2.0) Calcium Level 8.5 mg/dL (8.5-10.1) Total Bilirubin 0.2 mg/dL (0.2-1.0) Aspartate Amino Transf (AST/SGOT) 23 U/L (15-37) Alanine Aminotransferase (ALT/SGPT) 32 U/L (16-63) Alkaline Phosphatase 88 U/L (46-116) Total Protein 8.1 g/dL (6.4-8.2) Albumin 2.9 g/dL (3.4-5.0) Albumin/Globulin Ratio 0.6 (1.0-1.7) Laboratory Tests Test 04/21/21 07:05 04/21/21 10:55 White Blood Count 11.3 x10^3/uL (4.0-11.0) Red Blood Count 3.81 x10^6/uL (4.30-5.70) Hemoglobin 11.2 g/dL (13.0-17.5) Hematocrit 34.7 % (39.0-53.0) Mean Corpuscular Volume 91 fL (79-100) Mean Corpuscular Hemoglobin 30 pg (25-35) Mean Corpuscular Hemoglobin Concent 32 g/dL (31-37) Red Cell Distribution Width 14.3 % (11.5-14.5) Platelet Count 284 x10^3/uL (140-400) Neutrophils (%) (Auto) 83 % (31-73) Lymphocytes (%) (Auto) 9 % (24-48) Monocytes (%) (Auto) 6 % (0-9) Eosinophils (%) (Auto) 2 % (0-3) Basophils (%) (Auto) 0 % (0-3) Neutrophils # (Auto) 9.4 x10^3/uL (1.8-7.7) Lymphocytes # (Auto) 1.1 x10^3/uL (1.0-4.8) Monocytes # (Auto) 0.7 x10^3/uL (0.0-1.1) Eosinophils # (Auto) 0.2 x10^3/uL (0.0-0.7) Basophils # (Auto) 0.0 x10^3/uL (0.0-0.2) Prothrombin Time 13.5 SEC (11.7-14.0) Prothromb Time International Ratio 1.0 (0.8-1.1) Activated Partial Thromboplast Time 33 SEC (24-38) Sodium Level 134 mmol/L (136-145) Potassium Level 4.1 mmol/L (3.5-5.1) Chloride Level 99 mmol/L (98-107) Carbon Dioxide Level 28 mmol/L (21-32) Anion Gap 7 (6-14) Blood Urea Nitrogen 18 mg/dL (8-26) Creatinine 0.6 mg/dL (0.7-1.3) Estimated GFR (Cockcroft-Gault) 135.6 BUN/Creatinine Ratio 30 (6-20) Glucose Level 130 mg/dL (70-99) Lactic Acid Level 2.4 mmol/L (0.4-2.0) 1.7 mmol/L (0.4-2.0) Calcium Level 8.5 mg/dL (8.5-10.1) Total Bilirubin 0.2 mg/dL (0.2-1.0) Aspartate Amino Transf (AST/SGOT) 23 U/L (15-37) Alanine Aminotransferase (ALT/SGPT) 32 U/L (16-63) Alkaline Phosphatase 88 U/L (46-116) Total Protein 8.1 g/dL (6.4-8.2) Albumin 2.9 g/dL (3.4-5.0) Albumin/Globulin Ratio 0.6 (1.0-1.7) Assessment/Plan Assessment/Plan g tube malfunction-currently no bleeding to site, issues with g tube flushing, will ask IR to eval for possible flushing of g tube vs replacement JLUIS CHEN MD 04/21/21 2153: CONSULT Assessment/Plan Assessment/Plan Pt seen and examined. Agree with Ms. Pires's note Pt appears comfortable abd soft, Nd, NTTP, tube and dressing in place will ask IR to exchanged will ask GI to comment on constipation on imaging Thanks for consult! CASSIDY PIRES APRN Apr 21, 2021 12:56 JLUIS CHEN MD Apr 21, 2021 13:59
[2021-04-21] MEDS ORDERED: IOHEXOL 300 MG/ML 100ML VIAL. ONE (14:41)
[2021-04-21] MEDS ORDERED: IOHEXOL 240 MG/ML 50ML VIAL. ONE (14:42)
--- NOTE | 2021-04-21 14:51 | PDOC2 ---
GI CONSULT Date of Service: DATE: 04/21/21 TIME: 14:28 Reason For Consult: constipation HPI: HPI: 65 y/o male who we have seen in the past. H/o CVA and corticobulbar degeneration w/ aphasia, dysphagia, and contractures. Per review of other notes, [place] from [place] w/ bleeding around G tube which has resolved; however, now unable to flush. Surgery has seen, IR to see for possible tube exchange. Chronic constipation resistant to multiple interventions in the past. We are asked to see for this. Unable to review current med list. Suggestion made in past to consider barium enema. PMH: PMH: see HPI Parkinson's, GERD, HLD, gout, SBO/ileus surgical G tube placement/complication w/ intra-abdominal abscess requiring drainage FH: Family History: Other Social History: Smoke: No ALCOHOL: none ROS: unable to obtain - he can move his eyes, smile, and barely move his head - is non-verbal Vitals: Vitals: Vital Signs Date Time Temp Pulse Resp B/P (MAP) Pulse Ox O2 Delivery O2 Flow Rate FiO2 04/21/21 11:00 97.7 90 19 113/65 (81) 95 Room Air 97.7 Labs: Labs: Laboratory Tests Test 04/21/21 07:05 04/21/21 10:55 White Blood Count 11.3 x10^3/uL (4.0-11.0) Red Blood Count 3.81 x10^6/uL (4.30-5.70) Hemoglobin 11.2 g/dL (13.0-17.5) Hematocrit 34.7 % (39.0-53.0) Mean Corpuscular Volume 91 fL (79-100) Mean Corpuscular Hemoglobin 30 pg (25-35) Mean Corpuscular Hemoglobin Concent 32 g/dL (31-37) Red Cell Distribution Width 14.3 % (11.5-14.5) Platelet Count 284 x10^3/uL (140-400) Neutrophils (%) (Auto) 83 % (31-73) Lymphocytes (%) (Auto) 9 % (24-48) Monocytes (%) (Auto) 6 % (0-9) Eosinophils (%) (Auto) 2 % (0-3) Basophils (%) (Auto) 0 % (0-3) Neutrophils # (Auto) 9.4 x10^3/uL (1.8-7.7) Lymphocytes # (Auto) 1.1 x10^3/uL (1.0-4.8) Monocytes # (Auto) 0.7 x10^3/uL (0.0-1.1) Eosinophils # (Auto) 0.2 x10^3/uL (0.0-0.7) Basophils # (Auto) 0.0 x10^3/uL (0.0-0.2) Prothrombin Time 13.5 SEC (11.7-14.0) Prothromb Time International Ratio 1.0 (0.8-1.1) Activated Partial Thromboplast Time 33 SEC (24-38) Sodium Level 134 mmol/L (136-145) Potassium Level 4.1 mmol/L (3.5-5.1) Chloride Level 99 mmol/L (98-107) Carbon Dioxide Level 28 mmol/L (21-32) Anion Gap 7 (6-14) Blood Urea Nitrogen 18 mg/dL (8-26) Creatinine 0.6 mg/dL (0.7-1.3) Estimated GFR (Cockcroft-Gault) 135.6 BUN/Creatinine Ratio 30 (6-20) Glucose Level 130 mg/dL (70-99) Lactic Acid Level 2.4 mmol/L (0.4-2.0) 1.7 mmol/L (0.4-2.0) Calcium Level 8.5 mg/dL (8.5-10.1) Total Bilirubin 0.2 mg/dL (0.2-1.0) Aspartate Amino Transf (AST/SGOT) 23 U/L (15-37) Alanine Aminotransferase (ALT/SGPT) 32 U/L (16-63) Alkaline Phosphatase 88 U/L (46-116) Total Protein 8.1 g/dL (6.4-8.2) Albumin 2.9 g/dL (3.4-5.0) Albumin/Globulin Ratio 0.6 (1.0-1.7) Allergies: Coded Allergies: Beef Containing Products (Verified Adverse Reaction, Intermediate, 04/18/17) Unknown reaction/allergy. Beef is listed on patient's paperwork from [email or web address] as an allergy. Possibly d/t patient's swallowing ability. Medications: Current Medications Medications (Trade) Dose Ordered Sig/Ksenia Route PRN Reason Start Time Stop Time Status Last Admin Dose Admin Sodium Chloride 1,000 ml @ 1,000 mls/hr 1X ONCE IV 04/21/21 07:45 04/21/21 08:44 DC 04/21/21 08:37 Piperacillin Sod/ Tazobactam Sod 3.375 gm/Sodium Chloride 50 ml @ 100 mls/hr 1X ONCE IV 04/21/21 08:30 04/21/21 08:59 DC 04/21/21 08:37 Iohexol (Omnipaque 300 Mg/ml) 100 ml 1X ONCE IV 04/21/21 08:45 04/21/21 08:46 DC 04/21/21 08:52 Fentanyl Citrate (Fentanyl 2ml Vial) 50 mcg 1X ONCE IVP 04/21/21 08:45 04/21/21 08:46 DC 04/21/21 08:49 Dextrose/Sodium Chloride 1,000 ml @ 100 mls/hr 1X ONCE IV 04/21/21 11:00 04/21/21 20:59 04/21/21 11:42 Imaging: Imaging: CXR FINDINGS/ IMPRESSION: The cardiomediastinal silhouette is within normal limits. Increased blunting of left costophrenic angle that represents atelectasis versus trace of pleural effusion. No pulmonary vascular congestion. Pulmonary emphysema. No pneumothorax. Gastrostomy tube is not well profiled on this examination. 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 KUB IMPRESSION: Abdomen: Single view obtained. Large amount of stool is seen within the colon most prominent at rectal region which is dilated measuring up to about 108 mm. Would correlate with symptoms since causes such as fecal impaction is not excluded given this finding. Degenerative changes of the hips and spine. Air- filled distended loops of bowel are seen within the abdomen. Contrast is not well seen therefore cannot assess whether the percutaneous gastrostomy tube is within the stomach or extraluminal in nature. If further information is needed either additional contrast could be injected or a CT could be obtained to assess location. CT A/P Impression: 1. Appropriately positioned percutaneous gastrostomy tube. 2. No evidence of small bowel obstruction. 3. Large rectal stool burden. PE: GEN: chronically ill HEENT: Atraumatic, PERRL - lips dry LUNGS: diminished anteriorly HEART: tachycardic ABD: NABS, S/ND, does not seem tender, G tube present under thick dressing EXTREMITY: contractures SKIN: No rashes, no jaundice NEURO/PSYCH: awake and alert, non-verbal A/P: A/P: G tube malfunction H/o CVA and corticobulbar degeneration w/ aphasia, dysphagia, and contractures Chronic constipation Chronic anemia (stable) Mild leukocytosis, lactic acidosis (resolved) -- IR to see re: possible tube exchange. Try enemas, suppositories - may need manual disimpaction (like in the past). Consider Relistor. If not on, needs regular treatment for constipation moving forward - can address once G tube issues addressed. ALAYNA RAMIREZ Apr 21, 2021 14:51
[2021-04-21 15:00] VITALS: BP 132/82
[2021-04-21] MEDS ORDERED: IOHEXOL 240 MG/ML 50ML VIAL. IJ ONE (15:00)
[2021-04-21] MEDS ORDERED: BISACODYL 10 MG SUPP.RECT. PR ONE (15:30)
--- NOTE | 2021-04-21 16:15 | EKG ---
[facility] [address] [place] [address] Test Date: 2021-04-21 Test Time: 16:08:36 Pat Name: SINAI DC Department: Room: [facility] Gender: M Investigation Clerk: CLARIBEL : 1955 Requested By: SANJANA HALL Order Number: [id number] Reading MD: Yamil Perkins Measurements Intervals [place] Rate: 104 P: 67 OK: 172 QRS: 1 QRSD: 68 T: 56 QT: 312 QTc: 411 Interpretive Statements SINUS TACHYCARDIA Electronically Signed On 04-24-2021 12:14:55 TITLE ATTORNEY by Yamil Perkins
--- NOTE | 2021-04-21 16:28 | RAD ---
Replacement of gastrostomy tube under fluoroscopy 04/21/2021 INDICATION: Malfunctioning catheter Consent: The procedure was explained in its entirety to the patient or the patients designated repres entative by a member of the treatment team, including a discussion of the risks, benefits and commonl y accepted alternatives to the procedure, as well as the expected consequences of no therapy whatsoev er. Discussion of the risks included, but was not limited to, those that are most frequent and thos e that are rare but possibly severe or life-threatening, as well as the possibility of unforeseen com plications. Discussion: The pre-existing tube was found to flush and aspirate normally. The catheter tubing is at tenuated in several places, and appear to be compromised. Therefore the catheter was replaced over a guidewire. Contrast was administered through the new catheter confirming intragastric location. The c atheter was secured. Sterile dressings were applied. No immediate complication was identified. Fluoroscopy time 0.2 minutes Dose area product 0.2 Ramirez centimeter squared IMPRESSION: Placement of gastrostomy tube over guidewire, under fluoroscopy Electronically signed by: Jesus Manuel Haley MD (04/21/2021 4:26 PM) [id number]
[2021-04-21] MEDS ORDERED: POLYETHYLENE GLYCOL 3350 17 GM PACKET. PEG PRN (17:00)
[2021-04-21 19:30] VITALS: BP 102/61
[2021-04-21] MEDS: BACLOFEN 10 MG TABLET. PEG SCH (20:11)
[2021-04-21] MEDS: MAGNESIUM OXIDE 400 MG TABLET PEG SCH (20:11)
[2021-04-21] MEDS: traZODone 100 MG TABLET. PEG SCH (20:11)
[2021-04-21] MEDS: ACETAMINOPHEN 325 MG TABLET. PO PRN (20:11)
[2021-04-21] MEDS: CARBIDOPA/LEVODOPA 25/100MG TABLET PO SCH (20:11)
[2021-04-21] MEDS: GABAPENTIN 100 MG CAPSULE. PO SCH (20:12)
[2021-04-21] MEDS: SIMVASTATIN 10 MG TABLET PEG SCH (20:12)
[2021-04-22 02:45] VITALS: BP 91/55
--- NOTE | 2021-04-22 04:29 | HP ---
DATE OF SERVICE: 04/21/2021 ADMIT DATE: 04/21/2021 ADMISSION HISTORY AND PHYSICAL CHIEF COMPLAINT AND HISTORY OF PRESENT ILLNESS: This 65-year-old male, senior living resident, brought in via EMS because of bleeding from his G-tube site. It was partially dislodged with lots of bleeding. It was used last night without difficulties according to nursing. There was no reported trauma with it. The patient is aphasic and is unable to give a story. He is bedbound, quadriplegic. He was admitted because of the bleeding and Surgifoam placed through the stoma site with IR consulted to replace for surgery, which necessary. PAST MEDICAL HISTORY: Remarkable for prior small bowel obstructions and abscess of the abdomen, constipation, depression, hyperlipidemia, corticobasal degeneration, quadriplegia, aphasia, flexion contractures of hands and legs. PAST SURGICAL HISTORY: Remarkable for PEG tube. MEDICATIONS: Brought with the patient, listed on computer have been addressed. ALLERGIES: HE IS ALLERGIC TO BEEF CONTAINING PRODUCTS. SOCIAL HISTORY: Noncontributory. FAMILY HISTORY: Noncontributory. REVIEW OF SYSTEMS: Unobtainable due to his aphasia. PHYSICAL EXAMINATION: GENERAL: He is a chronically ill-appearing male who appears uncomfortable, but also has been found to have almost 10 cm fecal impaction. HEAD, EYES, EARS, NOSE AND THROAT: Unremarkable. NECK: Supple, without adenopathy or thyromegaly. CHEST: Clear to auscultation and percussion. HEART: Regular rate and rhythm without S3, S4 or murmur. ABDOMEN: Soft, nontender, without hepatosplenomegaly or masses. G-tube has been replaced. NEUROLOGIC: Remarkable for flexion contractures in arms and legs as well as atrophy of the muscles. He is aphasic on neurological exam, but does interact with yes and no shaking of his head. LABORATORY DATA: Initial laboratory is remarkable for hemoglobin of 11.2. CMP essentially unremarkable. His albumin is 2.9. INR is 1. CT scanning of his abdomen shows a large fecal impaction. ASSESSMENT: 1. Gastrostomy tube malfunction with bleeding. 2. Fecal impaction. 3. Corticobasal degeneration with quadriplegia and aphasia. PLAN: I ordered GI evaluation, surgery if necessary. The patient will be monitored, managed and treated appropriately. PAULA/GHAZAL/MARIAELENA GREEN: Jaylin TID: [id number]
[2021-04-22 07:00] VITALS: BP 111/56
--- NOTE | 2021-04-22 07:29 | NUR ---
Pt repositioned during the noc to help with pressure relief. Pt with contractures noted and pillows placed. Pt given 1 suppository last noc and 1 this am to help with bm's. Pt with noted small bm last noc. Pt with increased HR's noted at start of shift change 130-140's. Pt given noc medications and also prn zofran and tylenol to help with discomfort. Pt with HR decreased after meds given and noted HR increased again after pt had bm. No further complaints noted. during the noc.
--- NOTE | 2021-04-22 07:49 | NUR ---
bladder scanned pt since no urine noted during the noc and none documented during the day. Pt with 348ml noted on scan. When left to get order and supplies noted some incontinence of urine in brief. Scanned bladder again and noted greater than 100ml in bladder. Placed 14f coude catheter since unable to place 16f. Noted clear yellow urine. Will continue to monitor.
[2021-04-22] MEDS: GABAPENTIN 100 MG CAPSULE. PO SCH ×3 (09:00→20:38)
[2021-04-22] MEDS: MAGNESIUM HYDROXIDE 2,400 MG/30 ML ORAL.SUSP. PEG SCH (09:00)
[2021-04-22] MEDS: BACLOFEN 10 MG TABLET. PEG SCH ×3 (09:00→20:38)
[2021-04-22] MEDS: CARBIDOPA/LEVODOPA 25/100MG TABLET PO SCH ×3 (09:00→20:38)
--- NOTE | 2021-04-22 09:00 | PDOC ---
CASSIDY PIRES FILM DRYING MACHINE OPERATOR 04/22/21 0900: SURGICAL PROGRESS NOTE DATE: 04/22/21 TIME: 08:59 Subjective abd pain no bowel function Vital Signs Vital Signs Date Time Temp Pulse Resp B/P (MAP) Pulse Ox O2 Delivery O2 Flow Rate FiO2 04/22/21 02:45 80 16 91/55 (67) 100 Nasal Cannula 2.0 04/21/21 15:00 99.5 99.5 I&O Intake and Output 04/22/21 07:00 Intake Total 50 ml Output Total 1 ml Balance 49 ml Intake Oral 0 ml IV Total 50 ml Output Stool Total 1 ml # Voids 4 General: Cooperative Abdomen: Other (soft, distended, g tube in place, no bleeding ) Labs Laboratory Tests Test 04/21/21 07:05 04/21/21 10:55 04/21/21 18:06 04/21/21 23:12 White Blood Count 11.3 x10^3/uL (4.0-11.0) Red Blood Count 3.81 x10^6/uL (4.30-5.70) Hemoglobin 11.2 g/dL (13.0-17.5) Hematocrit 34.7 % (39.0-53.0) Mean Corpuscular Volume 91 fL (79-100) Mean Corpuscular Hemoglobin 30 pg (25-35) Mean Corpuscular Hemoglobin Concent 32 g/dL (31-37) Red Cell Distribution Width 14.3 % (11.5-14.5) Platelet Count 284 x10^3/uL (140-400) Neutrophils (%) (Auto) 83 % (31-73) Lymphocytes (%) (Auto) 9 % (24-48) Monocytes (%) (Auto) 6 % (0-9) Eosinophils (%) (Auto) 2 % (0-3) Basophils (%) (Auto) 0 % (0-3) Neutrophils # (Auto) 9.4 x10^3/uL (1.8-7.7) Lymphocytes # (Auto) 1.1 x10^3/uL (1.0-4.8) Monocytes # (Auto) 0.7 x10^3/uL (0.0-1.1) Eosinophils # (Auto) 0.2 x10^3/uL (0.0-0.7) Basophils # (Auto) 0.0 x10^3/uL (0.0-0.2) Prothrombin Time 13.5 SEC (11.7-14.0) Prothromb Time International Ratio 1.0 (0.8-1.1) Activated Partial Thromboplast Time 33 SEC (24-38) Sodium Level 134 mmol/L (136-145) Potassium Level 4.1 mmol/L (3.5-5.1) Chloride Level 99 mmol/L (98-107) Carbon Dioxide Level 28 mmol/L (21-32) Anion Gap 7 (6-14) Blood Urea Nitrogen 18 mg/dL (8-26) Creatinine 0.6 mg/dL (0.7-1.3) Estimated GFR (Cockcroft-Gault) 135.6 BUN/Creatinine Ratio 30 (6-20) Glucose Level 130 mg/dL (70-99) Lactic Acid Level 2.4 mmol/L (0.4-2.0) 1.7 mmol/L (0.4-2.0) Calcium Level 8.5 mg/dL (8.5-10.1) Total Bilirubin 0.2 mg/dL (0.2-1.0) Aspartate Amino Transf (AST/SGOT) 23 U/L (15-37) Alanine Aminotransferase (ALT/SGPT) 32 U/L (16-63) Alkaline Phosphatase 88 U/L (46-116) Total Protein 8.1 g/dL (6.4-8.2) Albumin 2.9 g/dL (3.4-5.0) Albumin/Globulin Ratio 0.6 (1.0-1.7) Glucose (Fingerstick) 137 mg/dL (70-99) 102 mg/dL (70-99) Laboratory Tests Test 04/21/21 10:55 04/21/21 18:06 04/21/21 23:12 Lactic Acid Level 1.7 mmol/L (0.4-2.0) Glucose (Fingerstick) 137 mg/dL (70-99) 102 mg/dL (70-99) Problem List Problems Medical Problems: (1) Gastrostomy tube dysfunction Status: Acute (2) History of small bowel obstruction Status: Acute (3) Lactic acidosis Status: Acute (4) Quadriplegia Status: Acute (5) Stomal bleeding Status: Acute Assessment/Plan g tube replaced, stable fecal burden, gi following can resume tube feeds per primary chart, round 15min Justicifation of Admission Dx: Justifications for Admission: Justification of Admission Dx: Yes Comments: constipation JLUIS CHEN MD 04/22/211904: SURGICAL PROGRESS NOTE Assessment/Plan Pt seen and examined. Agree with Ms. Pires's note Pt appears comfortable abd soft, tube in place cont supportive care CASSIDY PIRES APRN Apr 22, 2021 09:00 JLUIS CHEN MD Apr 22, 2021 19:05
[2021-04-22 11:00] VITALS: BP 162/90
[2021-04-22] MEDS: BISACODYL 10 MG SUPP.RECT. PR PRN (12:21)
[2021-04-22] MEDS: MORPHINE SULFATE 2 MG/ML INJ. IVP PRN ×2 (12:22→20:38)
--- NOTE | 2021-04-22 13:27 | PN ---
DATE: 04/22/2021 DAILY PROGRESS NOTE LOCATION: He is in room 510. SUBJECTIVE: This 65-year-old male, residential resident, was brought in because of malfunctioning bleeding G-tube site. He has been remedied with the G-tube site looking good. Surgery improving resumption of tube feeds and will do the same. He appears uncomfortable throughout the exam and all I can figure is the huge fecal impaction. Discussed with nursing strategies that we will employ today and GI is on the case and might have some other answers for us in addition. OBJECTIVE: VITAL SIGNS: Stable. He is afebrile. GENERAL: He is awake, alert, uncomfortable. CHEST: Clear. HEART: Regular. ABDOMEN: Benign. G-tube site good. IMPRESSION: 1. G-tube malfunction with bleeding, resolved. 2. Pain, likely due to fecal impaction with strategies ongoing. 3. 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 PLAN: Remove fecal impaction and see where we go from there. MARIA ESTHER/CHRISTIAN DR: PAULA/hoda TID: [id number]
[2021-04-22] MEDS: ASPIRIN 325 MG TABLET PO SCH (13:52)
[2021-04-22] MEDS: SERTRALINE 50 MG TABLET. PEG SCH (13:52)
[2021-04-22] MEDS: ALLOPURINOL 100 MG TABLET. PEG SCH (13:53)
[2021-04-22 15:00] VITALS: BP 136/72
[2021-04-22 19:00] VITALS: BP 138/91
[2021-04-22] MEDS: SIMVASTATIN 10 MG TABLET PEG SCH (20:38)
[2021-04-22] MEDS: traZODone 100 MG TABLET. PEG SCH (20:38)
[2021-04-22] MEDS: MAGNESIUM OXIDE 400 MG TABLET PEG SCH (20:38)
[2021-04-22 23:00] VITALS: BP 108/66
[2021-04-23 03:00] VITALS: BP 114/63
[2021-04-23 07:00] VITALS: BP 115/62
--- NOTE | 2021-04-23 09:01 | PDOC ---
CASSIDY PIRES APRN 04/23/21 0901: SURGICAL PROGRESS NOTE DATE: 04/23/21 TIME: 08:59 Subjective more comfortable had 2 medium stools tolerating tube feeds Vital Signs Vital Signs Date Time Temp Pulse Resp B/P (MAP) Pulse Ox O2 Delivery O2 Flow Rate FiO2 04/23/21 07:00 97.7 77 16 115/62 (79) 96 Room Air 97.7 04/22/21 15:00 2.0 I&O Intake and Output 04/23/21 07:00 Intake Total 0 ml Balance 0 ml Intake Oral 0 ml # Bowel Movements 1 General: Cooperative, No acute distress Abdomen: Soft, Other (g tube in place) Labs Laboratory Tests Test 04/21/21 10:55 04/21/21 18:06 04/21/21 23:12 Lactic Acid Level 1.7 mmol/L (0.4-2.0) Glucose (Fingerstick) 137 mg/dL (70-99) 102 mg/dL (70-99) Problem List Problems Medical Problems: (1) Gastrostomy tube dysfunction Status: Acute (2) History of small bowel obstruction Status: Acute (3) Lactic acidosis Status: Acute (4) Quadriplegia Status: Acute (5) Stomal bleeding Status: Acute Assessment/Plan constipation, some bowel function, will check xr continue tube feeds chart, round 10 min Justicifation of Admission Dx: Justifications for Admission: Justification of Admission Dx: Yes JLUIS CHEN MD 04/23/21 1427: SURGICAL PROGRESS NOTE Assessment/Plan Pt seen and examined. Agree with Radha's note Pt appears comfortable abd soft, Nd, NTTP, tube in place cont supportive care. CASSIDY PIRES APRN Apr 23, 2021 09:01 JLUIS CHEN MD Apr 23, 2021 14:27
[2021-04-23] MEDS: BACLOFEN 10 MG TABLET. PEG SCH ×3 (09:59→21:33)
[2021-04-23] MEDS: SERTRALINE 50 MG TABLET. PEG SCH (09:59)
[2021-04-23] MEDS: ASPIRIN 325 MG TABLET PO SCH (09:59)
[2021-04-23] MEDS: MAGNESIUM HYDROXIDE 2,400 MG/30 ML ORAL.SUSP. PEG SCH (10:00)
[2021-04-23] MEDS: ALLOPURINOL 100 MG TABLET. PEG SCH (10:00)
[2021-04-23] MEDS: GABAPENTIN 100 MG CAPSULE. PO SCH ×3 (10:00→21:33)
[2021-04-23] MEDS: CARBIDOPA/LEVODOPA 25/100MG TABLET PO SCH ×3 (10:00→21:33)
--- NOTE | 2021-04-23 10:01 | RAD ---
Single view abdomen dated 04/23/2021. COMPARISON: 04/21/2021. INDICATION: Fecal impaction. FINDINGS: 2 supine views obtained. Nondilated gas-filled loops of bowel throughout. Moderate amount of stool th roughout the colon. Gastric tube in place with Centeno catheter in place. IMPRESSION: 1. Nonobstructive bowel gas pattern 2. Moderate amount stool throughout colon. Electronically signed by: Dorian Jay MD (04/23/2021 9:59 AM) [id number]
[2021-04-23 10:41] VITALS: BP 104/61
[2021-04-23 14:44] VITALS: BP 89/52
--- NOTE | 2021-04-23 17:44 | PN ---
DATE: 04/23/2021 DAILY PROGRESS NOTE LOCATION: He is in room 510. SUBJECTIVE: This 65-year-old male, detention resident, brought because of a malfunctioning G-tube site. This has been remedied. He is back to tolerating his detention tube feedings. He, however, continues to have fecal impaction despite a couple of smaller bowel movements yesterday. KUB this morning looks like there still is a problem and GI is on the case for the same. He does appear, however, to be more comfortable today than he was yesterday. OBJECTIVE: VITAL SIGNS: Stable. He is afebrile. GENERAL: He is awake, alert, in less pain. CHEST: Clear. HEART: Regular. ABDOMEN: Benign. G-tube site looks good. ASSESSMENT: 1. Gastrostomy tube malfunction with bleeding, resolved. 2. Pain, likely due to fecal impaction with strategies ongoing. 3. 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 PLAN: Continue to work on fecal impaction. Once this has resolved, I think he would be ready to return to the detention. MARIA ESTHER/NAYELI DR: Jaylin TID: [id number]
[2021-04-23 19:00] VITALS: BP 99/62
[2021-04-23] MEDS: traZODone 100 MG TABLET. PEG SCH (21:33)
[2021-04-23] MEDS: MORPHINE SULFATE 2 MG/ML INJ. IVP PRN (21:33)
[2021-04-23] MEDS: SIMVASTATIN 10 MG TABLET PEG SCH (21:33)
[2021-04-23] MEDS: BISACODYL 10 MG SUPP.RECT. PR PRN (21:34)
[2021-04-23] MEDS: MAGNESIUM OXIDE 400 MG TABLET PEG SCH (21:34)
[2021-04-23 23:00] VITALS: BP 89/54
[2021-04-24 03:00] VITALS: BP 108/61
[2021-04-24] MEDS: MORPHINE SULFATE 2 MG/ML INJ. IVP PRN ×2 (03:16→08:08)
[2021-04-24 07:00] VITALS: BP 99/56
[2021-04-24] MEDS: ASPIRIN 325 MG TABLET PO SCH (08:06)
[2021-04-24] MEDS: CARBIDOPA/LEVODOPA 25/100MG TABLET PO SCH ×3 (08:06→21:52)
[2021-04-24] MEDS: SERTRALINE 50 MG TABLET. PEG SCH (08:06)
[2021-04-24] MEDS: GABAPENTIN 100 MG CAPSULE. PO SCH ×3 (08:07→21:52)
[2021-04-24] MEDS: ALLOPURINOL 100 MG TABLET. PEG SCH (08:07)
[2021-04-24] MEDS: MAGNESIUM HYDROXIDE 2,400 MG/30 ML ORAL.SUSP. PEG SCH (08:07)
[2021-04-24] MEDS: BACLOFEN 10 MG TABLET. PEG SCH ×3 (08:07→21:53)
--- NOTE | 2021-04-24 09:19 | PDOC ---
SURGICAL PROGRESS NOTE DATE: 04/24/21 TIME: 09:18 Subjective d/w nurse no stools tolerating tube feeds Vital Signs Vital Signs Date Time Temp Pulse Resp B/P (MAP) Pulse Ox O2 Delivery O2 Flow Rate FiO2 04/24/21 08:08 Room Air 04/24/21 03:46 96 04/24/21 03:00 82 16 108/61 (77) 04/23/21 23:00 97.8 97.8 I&O Intake and Output 04/24/21 07:00 Intake Total 0 ml Output Total 400 ml Balance -400 ml Intake Oral 0 ml Output Urine Total 400 ml General: No acute distress Abdomen: Soft, Other (g tube in place) Problem List Problems Medical Problems: (1) Gastrostomy tube dysfunction Status: Acute (2) History of small bowel obstruction Status: Acute (3) Lactic acidosis Status: Acute (4) Quadriplegia Status: Acute (5) Stomal bleeding Status: Acute Assessment/Plan g tube intact, will defer constipation management to GI will sign off, please call with questions chart, round 10 min Justicifation of Admission Dx: Justifications for Admission: Justification of Admission Dx: Yes CASSIDY PIRES APRN Apr 24, 2021 09:19
[2021-04-24] MEDS ORDERED: BISACODYL 10 MG SUPP.RECT. PR ONE (10:15)
[2021-04-24] MEDS ORDERED: METHYLNALTREXONE 12 MG/0.6 ML VIAL. SQ ONE (10:15)
--- NOTE | 2021-04-24 10:15 | PDOC ---
Date of Service: DATE: 04/24/21 TIME: 10:09 Objective: Objective: D/w nurse - medium stool after suppository over the weekend - soft stool/can't reach when manual disimpaction attempted. Getting Miralax. Apparently discharge on hold for this. Getting morphine, was moaning a lot yesterday. G tube functioning. Last labs 04/21. Vital Signs: Vital Signs Date Time Temp Pulse Resp B/P (MAP) Pulse Ox O2 Delivery O2 Flow Rate FiO2 04/24/21 08:38 19 Room Air 04/24/21 07:00 97.8 81 99/56 (70 96 97.8 Labs: BLOOD CULTURE Preliminary NO GROWTH AFTER 3 DAYS Imaging: IMPRESSION: Placement of gastrostomy tube over guidewire, under fluoroscopy KUB 04/23 IMPRESSION: 1. Nonobstructive bowel gas pattern 2. Moderate amount stool throughout colon. PE: GEN: chronically ill, contractures LUNGS: poor effort, room air HEART: RRR ABD: soft, non-tender, G tube in place/tube feeds, BS+ NEURO/PSYCH: awake and alert, non-verbal A/P: G tube malfunction, s/p replacement by IR H/o CVA and corticobulbar degeneration w/ aphasia, dysphagia, and contractures Chronic constipation -- Similar issues in the past w/ slow response to many medications during past admissions - needs more aggressive management of constipation long-term. Increase Miralax, repeat suppository, try Relistor x 1. Consider repeating enema - d/w nurse who indicates not much response to this the first time. Consider GoLytely. Linzess not available here, can't give Amitiza through G tube. Avoid narcs. Recheck basic labs. Justicifation of Admission Dx: Justifications for Admission: Justification of Admission Dx: Yes ALAYNA RAMIREZ Apr 24, 2021 10:15
[2021-04-24] MEDS: POLYETHYLENE GLYCOL 3350 17 GM PACKET. PEG SCH ×3 (10:28→21:52)
[2021-04-24 11:00] VITALS: BP 98/57
[2021-04-24 14:22] LABS: HEMATOCRIT 29.7 % (39.0-53.0); HEMOGLOBIN 9.6 g/dL (13.0-17.5); RED BLOOD COUNT 3.23 x10^6/uL (4.30-5.70); RED CELL DISTRIBUTION WIDTH 14.5 % (11.5-14.5); WHITE BLOOD COUNT 7.8 x10^3/uL (4.0-11.0)
[2021-04-24 14:52] LABS: CALCIUM 7.9 mg/dL (8.5-10.1); CREATININE 0.5 mg/dL (0.7-1.3); GFR 167.4; POTASSIUM 4.2 mmol/L (3.5-5.1)
[2021-04-24 15:00] VITALS: BP 110/58
--- NOTE | 2021-04-24 16:10 | NUR ---
SW following. Discussed with RN. 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 COVID PCR requested for return to retirement. LEENA will continue to follow.
[2021-04-24 19:00] VITALS: BP 120/71
[2021-04-24] MEDS: ACETAMINOPHEN 325 MG TABLET. PO PRN (21:52)
[2021-04-24] MEDS: MAGNESIUM OXIDE 400 MG TABLET PEG SCH (21:52)
[2021-04-24] MEDS: SIMVASTATIN 10 MG TABLET PEG SCH (21:52)
[2021-04-24] MEDS: traZODone 100 MG TABLET. PEG SCH (21:53)
[2021-04-24 23:02] VITALS: BP 136/80
--- NOTE | 2021-04-24 23:25 | PN ---
DATE: 04/24/2021 DAILY PROGRESS NOTE LOCATION: He is in room 510. SUBJECTIVE: This 65-year-old male, long term resident, brought in initially because of a malfunctioning bleeding G-tube. This has been remedied. He was back to tolerating his long term tube feedings; however, continues to have constipation. The GI is talking about trying . The only narcotics the patient is able to take in because of his ongoing discomfort in this hospital and certainly did not predate the hospitalization and I am not opposed to it, but certainly has no etiology and the cause of severe constipation on admission. OBJECTIVE: VITAL SIGNS: Stable. He is afebrile. GENERAL: Awake, alert, still appears uncomfortable and cannot tell how, but I would assume it is still coming from his abdomen and constipation. CHEST: Clear. HEART: Regular. ABDOMEN: Benign. G-tube site looks fine. ASSESSMENT: 1. Gastrostomy tube malfunction with bleeding, resolved. 2. Pain, likely due to constipation. 3. 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 PLAN: Continue to work on stooling. He is ready to return if this solves whatever is going on with his uncomfortableness, which he cannot express to us. ANGIE DR: Jaylin TID: [id number]
[2021-04-25 03:06] VITALS: BP 87/54
[2021-04-25 07:00] VITALS: BP 112/62
[2021-04-25] MEDS: POLYETHYLENE GLYCOL 3350 17 GM PACKET. PEG SCH (09:00)
[2021-04-25] MEDS: ALLOPURINOL 100 MG TABLET. PEG SCH (09:52)
[2021-04-25] MEDS: ASPIRIN 325 MG TABLET PO SCH (09:52)
[2021-04-25] MEDS: CARBIDOPA/LEVODOPA 25/100MG TABLET PO SCH (09:53)
[2021-04-25] MEDS: GABAPENTIN 100 MG CAPSULE. PO SCH (09:53)
[2021-04-25] MEDS: SERTRALINE 50 MG TABLET. PEG SCH (09:53)
[2021-04-25] MEDS: BACLOFEN 10 MG TABLET. PEG SCH (09:53)
[2021-04-25] MEDS: MAGNESIUM HYDROXIDE 2,400 MG/30 ML ORAL.SUSP. PEG SCH (09:54)
--- NOTE | 2021-04-25 10:04 | PDOC ---
Date of Service: DATE: 04/25/21 TIME: 10:01 Objective: Objective: D/w nurse - significant stooling, tolerating tube feeds, plans to DC today. Vital Signs: Vital Signs Date Time Temp Pulse Resp B/P (MAP) Pulse Ox O2 Delivery O2 Flow Rate FiO2 04/25/21 07:00 98.2 91 18 112/62 (79) 96 Room Air 98.2 Labs: Laboratory Tests Test 04/24/21 10:45 04/24/21 14:02 SARS-CoV-2 RNA (ROMERO) Negative White Blood Count 7.8 x10^3/uL Red Blood Count 3.23 x10^6/uL Hemoglobin 9.6 g/dL Hematocrit 29.7 % Mean Corpuscular Volume 92 fL Mean Corpuscular Hemoglobin 30 pg Mean Corpuscular Hemoglobin Concent 32 g/dL Red Cell Distribution Width 14.5 % Platelet Count 233 x10^3/uL Sodium Level 141 mmol/L Potassium Level 4.2 mmol/L Chloride Level 102 mmol/L Carbon Dioxide Level 31 mmol/L Anion Gap 8 Blood Urea Nitrogen 24 mg/dL Creatinine 0.5 mg/dL Estimated GFR (Cockcroft-Gault) 167.4 Glucose Level 107 mg/dL Calcium Level 7.9 mg/dL PE: GEN: chronically ill, grunting LUNGS: diminished anteriorly HEART: RRR ABD: soft, non-distended, G tube in place w/ tube feeds running EXTREM: contractures NEURO/PSYCH: awake, non-verbal A/P: S/p G tube replacement by IR H/o CVA and corticobulbar degeneration w/ aphasia, dysphagia, and contractures Chronic constipation - stooling -- DC per primary, recommend aggressive constipation management long-term (possibly w/ Miralax, Dulcolax, Relistor, etc.). Justicifation of Admission Dx: Justifications for Admission: Justification of Admission Dx: Yes ALAYNA RAMIREZ Apr 25, 2021 10:04
[2021-04-25 11:00] VITALS: BP 108/72
--- NOTE | 2021-04-25 11:14 | NUR ---
SW following. Discussed with RN, discharge order for pt to return to [facility]. Dr. Ivey did not complete the appropriate paperwork for discharge back to alf -RN had to complete paper med rec. Clinicals and orders faxed to [facility]. Stretcher transportation arranged by [facility] for [phone] via [employer]. RN notified.
--- NOTE | 2021-04-25 14:02 | NUR ---
Discharge Note: Patient discharged to [facility], RN unable to give report as nobody would answer phone calls after 2 attempts. IV discontinued, telemetry removed, skin also intact. G-tube flushed. Patient taken to [facility] via [employer] [facility].
--- NOTE | 2021-04-25 22:36 | DS ---
DATE OF DISCHARGE: 04/25/2021 PRIMARY DIAGNOSIS: G-tube malfunction with bleeding. 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 CHIEF COMPLAINT HISTORY OF PRESENT ILLNESS: This 65-year-old male admitted through the Emergency Room from the alf with gastrostomy partially dislodged and brisk bleeding from the same, found to have a fecal impaction appears very uncomfortable. SUMMARY OF STAY: The patient was admitted. GI did fix the G-tube with bleeding controlled including Emergency Room working on the same at the time of admission. He appeared continue to be uncomfortable with the only possibility logically was a fecal impaction. This was eventually remedied with 2 great bowel movements in the 24 hours before admission and he was sent back to alf, where a bowel regimen will be altered as a result of the stay. DISPOSITION: The patient is discharged back to alf. Please see orders there regarding diet, medication, activity, etc. We will continue to follow him there. GRANT/MARK DR: Jaylin TID: [id number]
== END 2021-04-25 14:13 | DRG 393 ==
LOC: ER 05:41 → 5 NORTH 08:00 → OBSVTOIN 04-22 21:44
PROVIDERS: ADMIT Family Medicine; ATTEND Family Medicine
PROC: 0DH63UZ Insertion of Feeding Device into Stomach, Percutaneous Approach (ICD-10-PCS; principal; 2021-04-22)
DX: K94.23 Gastrostomy malfunction (principal); G82.50 Quadriplegia, unspecified; E87.2 Acidosis; K94.21 Gastrostomy hemorrhage; E78.00 Pure hypercholesterolemia, unspecified; E78.5 Hyperlipidemia, unspecified; G20 Parkinson's disease; G31.85 Corticobasal degeneration; I10 Essential (primary) hypertension; K21.9 Gastro-esophageal reflux disease without esophagitis; M10.9 Gout, unspecified; F32.A Depression, unspecified; K56.41 Fecal impaction; D53.9 Nutritional anemia, unspecified; D72.829 Elevated white blood cell count, unspecified; Z20.822 Contact with and (suspected) exposure to COVID-19; Z74.01 Bed confinement status; Z86.73 Personal history of transient ischemic attack (TIA), and cerebral infarction without residual deficits; Z88.8 Allergy status to other drugs, medicaments and biological substances
CPT/HCPCS: 36415; 49450; 71045; 74018; 74177; 80048; 80053; 82962; 83605; 85025; 85027; 85610; 85730; 87040; 93005; 96365; 96375; B4087; C1769; G0378; G0379; J2212; J2270; J2405; J2543; J3010; J7030; J7042; Q9966; Q9967; U0003; U0005; 99285-25

== ENCOUNTER 2021-08-01 21:29 | Emergency (ER) | payer MEDICAID, MEDICARE ==
[~2021-08-01] VITALS: Ht 177.8 cm; Wt 70.5 kg
[~2021-08-01 21:29] MED LIST changes: -OMEP20TA8 PEG; +OMEP20TA91 PEG
[2021-08-01] MEDS ORDERED: CONTRAST GIVEN. MC PRN (23:45)
[2021-08-01] MEDS ORDERED: IOHEXOL 240 MG/ML 50ML VIAL. PO ONE (23:45)
--- NOTE | 2021-08-01 23:56 | RAD ---
XR ABDOMEN 1V 08/01/2021 11:24 PM INDICATION: PEG tube placement COMPARISON: Abdominal radiograph 04/23/2021 TECHNIQUE: Single supine view the abdomen provided after administration of 30 mL Omnipaque 240 there are gastrostomy tube. FINDINGS/ IMPRESSION: Intraluminal contrast confirms adequate placement of the gastrostomy tube. Balloon projects over the left upper quadrant abdomen in expected region of the stomach. Contrast opacifies the stomach and pro ximal duodenum. Nonobstructed bowel gas pattern. Limited evaluation for pneumoperitoneum given supine technique. Moderate osteoarthrosis of the left hip. Electronically signed by: Louise Phan MD (08/01/2021 11:54 PM) CHILO
--- NOTE | 2021-08-02 00:17 | PHYS DOC ---
Past Medical History Past Medical History: Constipation, CVA, Depression, GERD, High Cholesterol, Other Additional Past Medical Histor: Aphasia, corticobasilar degen; joint disorders of bilat hands, contracture Past Surgical History: Other Additional Past Surgical Histo: FEEDING RUBE PLACEMENT Smoking Status: Unknown if ever smoked Alcohol Use: None Drug Use: None General Adult EDM: Chief Complaint: GI PROBLEM HPI: HPI: Patient is a 65 year old male with multiple core morbidities including dementia presents today with needing PEG tube placement. It is a 21 [place]. This is the only information I have as we were not provided anything else. Per nursing staff he was sent in from a nursing facility. He has come multiple times to the emergency department for the same reason. Patient himself does not provide any further history Review of Systems: Review of Systems: Cannot perform due to chronic medical conditions Heart Score: C/O Chest Pain: No Risk Factors: Risk Factors: DM, Current or recent (<one month) smoker, HTN, HLP, family history of CAD, obesity. Risk Scores: Score 0 - 3: 2.5% MACE over next 6 weeks - Discharge Home Score 4 - 6: 20.3% MACE over next 6 weeks - Admit for Clinical Observation Score 7 - 10: 72.7% MACE over next 6 weeks - Early Invasive Strategies Current Medications: Current Medications Medications (Trade) Dose Ordered Sig/Ksenia Start Time Stop Time Status Last Admin Dose Admin Info (CONTRAST GIVEN -- Rx MONITORING) 1 each PRN DAILY PRN 08/01/21 23:45 08/03/21 23:44 Iohexol (Omnipaque 240 Mg/ml) 30 ml 1X ONCE 08/01/21 23:45 08/01/21 23:46 DC Allergies: Allergies: Allergies Coded Allergies Type Severity Reaction Last Updated Verified Beef Containing Products Adverse Reaction Intermediate 04/18/17 Yes Physical Exam: PE: Constitutional: Well developed, well nourished, no acute distress, non-toxic appearance. [] HENT: Normocephalic, atraumatic, bilateral external ears normal, oropharynx moist, no oral exudates, nose normal. [] Eyes: PERRLA, EOMI, conjunctiva normal, no discharge. [] Neck: Normal range of motion, no tenderness, supple, no stridor. [] Cardiovascular:Heart rate regular rhythm, no murmur [] Lungs & Thorax: Bilateral breath sounds clear to auscultation [] Abdomen: Stoma in place with some blood visible Skin: Warm, dry, no erythema, no rash. [] Back: No tenderness, no CVA tenderness. [] Extremities: No tenderness, no cyanosis, no clubbing, ROM intact, no edema. [] Neurologic: Alert opens eyes and smiles spontaneously Current Patient Data: Vital Signs: Vital Signs Date Time Temp Pulse Resp B/P (MAP) Pulse Ox O2 Delivery O2 Flow Rate FiO2 08/01/21 21:30 99.1 110 28 158/82 (107) 100 Room Air 99.1 EKG: EKG: [] Radiology/Procedures: Radiology/Procedures: [] Course & Med Decision Making: Course & Med Decision Making Pertinent Labs and Imaging studies reviewed. (See chart for details) PEG tube was placed by the nurse. Contrast study shows proper placement. Patient will be resent back to the facility Dragon Disclaimer: Dragon Disclaimer: This electronic medical record was generated, in whole or in part, using a voice recognition dictation system. Departure Departure Impression: Primary Impression: PEG tube malfunction Disposition: 03 LONG TERM FACILITY Condition: IMPROVED Referrals: SANJANA HALL MD (PCP) Patient Instructions: PEG, Home Care, [id number] FELICIANO RODRIGUEZ MD August 02, 2021 00:17
[2021-08-02 03:25] VITALS: BP 109/74
[2021-08-02] MEDS ORDERED: IOHEXOL 240 MG/ML 50ML VIAL. ONE (14:18)
== END 2021-08-02 03:25 ==
LOC: ER 21:29
DX: K94.23 Gastrostomy malfunction (principal); K21.9 Gastro-esophageal reflux disease without esophagitis; E78.00 Pure hypercholesterolemia, unspecified; F03.90 Unspecified dementia, unspecified severity, without behavioral disturbance, psychotic disturbance, mood disturbance, and anxiety; Z86.73 Personal history of transient ischemic attack (TIA), and cerebral infarction without residual deficits; Z88.8 Allergy status to other drugs, medicaments and biological substances
CPT/HCPCS: 43762; 74018; 99285